=== PATIENT | female | born 1975 | race Caucasian/White ===

== ENCOUNTER 2020-11-20 16:26 | Emergency (ER) | payer OTHER, MEDICAID, SELFPAY ==
[2020-11-20 16:26] VITALS: BP 183/103; PULSE 95; RESP 18; TEMP 36.8; O2SAT 97; BMI 25.1
--- NOTE | 2020-11-20 16:37 | ED.DCSUM_ITS ---
History of Present Illness Chief Complaint: Laceration Informant: Patient Onset: Today Current Severity: Mild Maximum Severity: Mild Narrative: Patient presents with laceration to the left lower extremity. Patient was wo rking at [facility] when a customer ran into her with a cart. Patient lost her balance and hit an end. She noted a small tear in her pant leg and noticed a laceration over her left hoover. She reports her tetanus is up-to-date. She denies any other injury. Past Medical History - Allergies and Home Meds Allergies/Adverse Reactions: Allergies No Known Allergies Allergy (Verified 11/20/20 16:29) Past Medical History: None Review of Systems General: Denies: Chills, Fever Eyes: Denies: Visual changes - bilaterally ENT: Denies: Bilateral ear pain Cardiovascular: Denies: Chest pain Respiratory: Denies: Dyspnea, Cough Gastrointestinal: Denies: Abdominal pain Musculoskeletal: Reports: Extremity Pain Skin: Reports: Wounds Neurological: Denies: Headache Hematologic: Denies: Easy bruising, Easy bleeding Allergy: Denies: Uticaria Physical Exam Vital Signs/Narrative: Vital Signs Temp Pulse Resp BP Pulse Ox 11/20/20 16:26 98.2 F 95 18 183/103 H 97 Inital Vital Signs reviewed: Yes General: Well nourished, Well developed Head: Normocephalic Cardiovascular: Regular rate, Regular rhythm Respiratory: No distress, CTA bilaterally Abdomen: Soft, Nontender Skin: - - 3 cm linear laceration over the left anterior hoover. No underlying bony tenderness. Strong distal pulses. Full range of motion. Neurological: Alert, Oriented x3, Normal Strength, Normal Sensation Psychological: Normal affect Diagnostic/Tx/Re-eval - Medical Decision Making Left hoover wound was anesthetized with 3 cc 1% lidocaine. Wound was cleansed and irrigated. Skin was closed with 3 simple interval sutures of 4-0 nylon. Wound care is discussed. She will follow-up with corporate care. Procedures - Lacerations No standard instances Length: 1.18 in Depth: Sub Q Laceration repair: Local Number of Sutures/[place]: 3 Suture Information: Ethilon, Simple, 4-0 ED Disposition - Plan for ED Patient: Disposition: Home or Assisted Living Diagnosis: Leg laceration Instructions: ED Laceration: All Closures Referrals: [facility] [GROUP OF PHYSICIANS] - 5-7 Days
[2020-11-20 18:10] VITALS: RESP 16
[2020-11-20] MEDS: Lidocaine 1% (20 ml mdv) 20 ML Vial INFILT (18:12)
== END 2020-11-20 18:12 | disposition home or self-care (01) ==
PROVIDERS: Emergency Provider Emergency Medicine
DX: S81.812A Laceration without foreign body, left lower leg, initial encounter (principal); W22.8XXA Striking against or struck by other objects, initial encounter
CPT/HCPCS: 12002; 99284

== ENCOUNTER → 2021-06-03 | Outpatient (CLI) | payer OTHER, MEDICAID, SELFPAY | END | disposition home or self-care (01) | LOC: LABSPEC 16:16 | PROVIDERS: Referring Provider Physician Assistant Surgical; Visit Provider Physician Assistant Surgical | DX: Z20.822 Contact with and (suspected) exposure to COVID-19 (principal) | CPT/HCPCS: 87635; U0005; U0003 ==

== ENCOUNTER 2021-06-23 15:28 | Emergency (ER) | payer MEDICAID, SELFPAY ==
[2021-06-23 15:30] VITALS: BP 159/110; PULSE 95; RESP 20; TEMP 37.4; O2SAT 96; BMI 29.1
[2021-06-23 15:34] VITALS: TEMP 37.4; O2SAT 96
--- NOTE | 2021-06-23 16:57 | EX.ED.GENINJ ---
HPI History of Present Illness Chief Complaint: Head Injury Narrative Narrative: Patient states that she tripped and fell today with mechanical fall after drinking with her friends. She did hit her head but denies LOC. She denies dizziness, lightheadedness, blurriness, inability to ambulate or gait instability. Patient does have controlled bleeding to the left posterior scalp. Patient states otherwise healthy prior to the fall. [facility] Medical History Abnormal bruising Difficulty balancing when standing Knee pain Limb weakness SOB (shortness of breath) Home Medications NK 06/03/21 [History Last Taken Unknown] Allergy/AdvReac Type Severity Reaction Status Date / Time No Known Allergies Allergy Verified 06/03/21 14:22 Social History Smoking Status: Former smoker ROS ROS ED Constitutional Constitutional ED: Denies chills or fever(s) Eyes Eyes: Denies blurry vision or change in vision ENT ENT ED: Denies rhinorrhea or sore throat Cardiovascular Cardiovascular: Denies chest pain or palpitations Respiratory/Chest Respiratory/Chest: Denies cough or dyspnea Gastrointestinal Gastrointestinal: Denies abdominal pain, nausea or vomiting Genitourinary Genitourinary ED: Denies dysuria or hematuria Musculoskeletal Musculoskeletal: Denies arthralgias, myalgias or neck pain Integumentary Reports Abrasions Neurologic Neurologic: Denies headache(s) or weakness EXAM Physical Exam Const Vital Signs: 06/23/21 15:30 06/23/21 15:34 Temperature 99.4 F H 99.4 F H Temperature Source Temporal Pulse Rate 95 Respiratory Rate 20 H Respiratory Effort Normal Respiratory Depth Normal Respiratory Pattern Normal Blood Pressure 159/110 H Blood Pressure Mean 126 Pulse Ox 96 96 Oxygen Delivery Method Room Air Room Air Positive well nourished General Appearance ED: NAD HEENT HEENT Narrative: Scalp contusion with overlying abrasion on the left posterior occiput. There is a slight 0.25 cm superficial laceration which is not actively bleeding. No skull deformity. Eyes PERRL and EOMs intact bilaterally Neck full ROM General: Negative for tenderness Resp normal respiratory effort and clear to auscultation bilaterally Cardio regular rhythm Rate: regular rate Extremity normal to inspection Neuro oriented x3, CN's II-XII intact bilaterally, moves all extremities, no focal motor deficits and no sensory deficits noted Sensorium / Orientation: alert and oriented to person Psych mental status grossly normal Skin Skin Narrative: As described above MDM MDM MDM Narrative Medical decision making narrative: Patient has minimal pain. She alert and oriented x3. She has no focal neurologic deficits or lateralizing signs or symptoms. Her wound is superficial and does not require ronald. Her tetanus immunization is less than 5 years. From a head injury standpoint I believe she is safe to be discharged home. Patient does request the COVID-19 vaccine which would be the Pfizer which was discussed with her at length. Severe first shot. She is counseled that she can have the second shot outpatient and has a schedule this. She acknowledged understanding. She realizes she may get some symptoms from the Covid vaccine which also was discussed at length. Patient given return precautions. Impression: 1. Closed head injury 2. Scalp laceration 3. Scalp abrasion 4. Covid vaccination Discharge Plan Triage Chief Complaint: Head Injury ED Provider: Peng Bhat Dx/Rx/DC Orders Instructions: ED Abrasion, ED Head Injury (Adult) Prescriptions: No Action NK RF: 0 Primary Care Provider: Care Physician,No Primary Referrals: Kade Hobbs MD [STAFF PHYSICIAN] - As Needed Care Physician,No Primary [Primary Care Provider] - Disposition Disposition: Home, Self Care
--- NOTE | 2021-06-23 17:57 | ED.RN ---
PT walked out prior to receiving covid vaccine and stated that she would be back in to get it. this RN waited for 45 minutes and no return
== END 2021-06-23 18:00 | disposition home or self-care (01) ==
PROVIDERS: Emergency Provider Student in an Organized Health Care Education/Training Program
DX: S01.01XA Laceration without foreign body of scalp, initial encounter (principal); W01.0XXA Fall on same level from slipping, tripping and stumbling without subsequent striking against object, initial encounter; Y93.9 Activity, unspecified; Y92.9 Unspecified place or not applicable; Y99.8 Other external cause status; Z87.891 Personal history of nicotine dependence; Z28.21 Immunization not carried out because of patient refusal
CPT/HCPCS: 91300; 99284

== ENCOUNTER 2025-06-05 11:21 | Inpatient (IN) | payer MEDICAID, SELFPAY ==
[2025-06-05] VITALS (37 sets, daily range): BP systolic 127–165; BP diastolic 85–110; PULSE 89–123; RESP 12–29; TEMP 36.1–37.1; O2SAT 96–100; BMI 21.0; BMI 20.9
--- NOTE | 2025-06-05 12:38 | EDS_ITS ---
HPI History of Present Illness Chief Complaint: Nausea/Vomiting Narrative Narrative: Chief complaint and HPI: 50-year-old female with no significant past medical history presents for evaluation of nausea and vomiting. Onset of symptoms 4 days. Associated symptoms are congestion, sore throat, body aches, cough, shortness of breath/chest tightness. Denies abdominal pain but endorses decreased p.o. intake. Denies fever, chills, chest pain, dysuria. Review of systems: See HPI Medications: As listed on the chart Allergies: As listed on the chart PFSH: Per chart Vital signs: As listed on the chart. Reviewed. Physical exam: Gen: A&O x3 Head: Normocephalic, atraumatic Eyes: No sclera icterus, conjunctiva clear, PERRL, EOMI ENT: TMs clear BL, dry mucous membranes, posterior oropharynx erythematous, uvula midline, tonsils not enlarged, no tonsillar exudates Neck: Trachea midline, No JVD, Full ROM, No meningismus CV: tachycardic, regular rhythm, no murmurs, no peripheral edema Resp: Lungs CTA BL, no w/r/c, + cough GI: Abd soft, non-distended, non-tender, no r/r/g Musc: Full ROM, no deformity Skin: Warm, dry, no rash Neuro: Alert, oriented, grossly intact, sensation intact Psych: Cooperative, appropriate mood and affect [facility] Medical History Encounter for screening for COVID-19 Limb weakness Difficulty balancing when standing Abnormal bruising Knee pain SOB (shortness of breath) Home Medications Medication Instructions Recorded Last Taken Type benzonatate 200 mg capsule 200 mg PO TID PRN cough #30 caps 09/29/21 Unknown Rx Allergy/AdvReac Type Severity Reaction Status Date / Time No Known Allergies Allergy Verified 06/05/25 11:25 Social History Smoking Status: Former smoker EXAM Physical Exam Const Vital Signs: 06/05/25 11:23 06/05/25 11:39 06/05/25 11:45 Temperature 97 F L Temperature Source Temporal Pulse Rate 123 H 115 H 118 H Respiratory Rate 18 19 H 23 H Blood Pressure 150/107 H Blood Pressure Mean 121 Pulse Ox 99 99 Oxygen Delivery Method Room Air 06/05/25 12:00 06/05/25 12:15 06/05/25 12:30 Temperature Temperature Source Pulse Rate 114 H 115 H 116 H Respiratory Rate 19 H 19 H 29 H Blood Pressure Blood Pressure Mean Pulse Ox 98 98 97 Oxygen Delivery Method 06/05/25 12:55 06/05/25 13:00 06/05/25 13:15 Temperature Temperature Source Pulse Rate 116 H 109 H 106 H Respiratory Rate 26 H 21 H 19 H Blood Pressure 137/95 H 144/101 H 143/109 H Blood Pressure Mean 108 115 119 Pulse Ox 96 99 Oxygen Delivery Method 06/05/25 13:30 06/05/25 13:33 06/05/25 13:45 Temperature Temperature Source Pulse Rate 102 H 95 Respiratory Rate 22 H 19 H Blood Pressure 165/103 H 148/105 H Blood Pressure Mean 119 120 Pulse Ox 99 98 Oxygen Delivery Method 06/05/25 14:00 06/05/25 14:15 06/05/25 14:30 Temperature Temperature Source Pulse Rate 94 96 Respiratory Rate 18 18 22 H Blood Pressure 152/105 H 147/110 H Blood Pressure Mean 121 120 Pulse Ox 99 99 Oxygen Delivery Method 06/05/25 14:45 06/05/25 15:00 06/05/25 15:16 Temperature Temperature Source Pulse Rate Respiratory Rate Blood Pressure Blood Pressure Mean Pulse Ox 99 98 99 Oxygen Delivery Method 06/05/25 15:30 Temperature Temperature Source Pulse Rate 99 Respiratory Rate 13 Blood Pressure Blood Pressure Mean Pulse Ox 99 Oxygen Delivery Method MDM MDM MDM Narrative Medical decision making narrative: 50-year-old female with no significant past medical history presents for evalua tion of nausea and vomiting. Onset of symptoms 4 days. Associated symptoms are congestion, sore throat, body aches, cough, shortness of breath/chest tightness. Denies abdominal pain but endorses decreased p.o. intake. Denies fever, chills, chest pain, dysuria. On presentation, patient is tachycardic with dry mucous membranes. Differential diagnosis includes but is not limited to viral illness, influenza, COVID, electrolyte abnormality, dehydration, UTI, pneumonia. Patient's abdominal exam is benign and patient does not endorse any abdominal pain therefore I do not think CT abdomen and pelvis is needed. NS bolus, Zofran, Toradol ordered for symptoms. Laboratory workup ordered including chest x-ray. CBC with leukocytosis of 15.5. Patient has hemoconcentration of 15.6. This can be seen with mild dehydration. Patient receiving fluids. Platelet count unremarkable. CMP shows hyponatremia at 128 with dehydration/NANCY. BUN of 33. Creatinine of 1.32. Patient has hyperbilirubinemia 3.94 with transaminitis with an AST of 124 and an ALT of 87. Her lipase is 1645. Concern is for pancreatitis/choledocholithiasis. NS bolus ordered. Direct bilirubin ordered and 2.47. CT abdomen pelvis ordered. UA positive for ketones which is consistent with her dehydration. Positive for blood. Negative for UTI. However given her urine, did send for culture. CT abdomen pelvis shows no acute abnormality. Hepatosplenomegaly. Gallbladder ultrasound ordered. On reevaluation, patient's heart rate has improved. States her nausea has reoccurred. Another Zofran ordered. Patient signed out to oncoming physician, Dr. Rucker. She will wait ultrasound results and likely GI consult with admission. EKG: Interpreted by me/EM physician: EKG shows sinus tachycardia without any acute ischemic changes. Heart rate 114 Diagnostic: Interpreted by me/EM physician: Chest x-ray without pneumonia, effusion, cardiomegaly, pneumothorax. Radiology in agreement. Lab Data Labs: Laboratory Results - last 24 hr 06/05/25 06/05/25 11:45 12:59 WBC 15.5 H RBC 4.67 Hgb 15.6 H Hct 43.9 MCV 94.0 MCH 33.4 H MCHC 35.5 RDW Std Deviation 42.3 RDW Coeff of Parviz 12.2 Plt Count 194 MPV 10.4 Immature Gran % (Auto) 0.700 Neut % (Auto) 91.3 H Lymph % (Auto) 2.3 L Lares % (Auto) 5.4 Eos % (Auto) 0.0 Baso % (Auto) 0.3 Absolute Neuts (auto) 14.1 H Absolute Lymphs (auto) 0.36 L Nucleated RBC % 0 Sodium 128 L Potassium 3.7 Chloride 82 L Carbon Dioxide 11.8 L Anion Gap 34 H BUN 33 H Creatinine 1.32 H Estim Creat Clear Calc 41.24 L Est GFR (MDRD) Non-Af 49 L BUN/Creatinine Ratio 24.6 H Glucose 261 H Calcium 9.9 Total Bilirubin 3.94 H Direct Bilirubin 2.47 H AST 124 H ALT 87 H Alkaline Phosphatase 234 H Total Protein 8.8 H Albumin 5.0 Globulin 3.8 Albumin/Globulin Ratio 1.3 Lipase 1645 H Urine Color Yellow Urine Clarity Sl. Cloudy Urine pH 6.0 Ur Specific [place] 1.015 Urine Protein 100 H Urine Glucose (UA) Normal Urine Ketones 150 A* Urine Occult Blood 150 H Urine Nitrite Negative Urine Bilirubin 3 H Urine Urobilinogen 4 H Ur Leukocyte Esterase 25 H Urine RBC 5-10 SEEN Urine WBC 0-5 SEEN Ur Squamous Epith Cells 0-5 SEEN Urine Bacteria 0 SEEN Hyaline Casts 50-100 SEEN Fine Granular Casts 10-25 SEEN Urine Mucus 0 SEEN Radiography Diagnostic Testing: Clinical Impression(s) from Imaging Studies Chest X-Ray 06/05/25 13:25 IMPRESSION: Lungs appear clear throughout. No pleural effusion or pneumothorax is noted. The cardiomediastinal silhouette is within the normal range. Mild thoracic spine degenerative changes are noted. No acute osseous change is seen. No evidence of acute cardiopulmonary disease. Reading Location: [address] Abdomen/Pelvis CT 06/05/25 15:20 IMPRESSION: No acute abdominopelvic abnormalities. Hepatosplenomegaly. Reading Location: [facility] Discharge Plan Triage Chief Complaint: Nausea/Vomiting ED Provider: Balta Lr Dx/Rx/DC Orders Prescriptions: No Action benzonatate 200 mg capsule 200 mg PO TID PRN (Reason: cough) Qty: 30 0RF Primary Care Provider: Care Physician,No Primary Referrals: Care Physician,No Primary [Primary Care Provider, Medical] Print Language: Nepalese
[2025-06-05 12:44] LABS: Hematocrit 43.9 % (37-47); Hemoglobin 15.6 g/dL (12.0-15.0); Immature Granulocytes Count 0.110 X10^3/uL (0.0-0.0); Mean Corp Hgb Conc 35.5 g/dL (32-36); Mean Corpuscular Volume 94.0 fL (81-99); Mean Platelet Vol. 10.4 fl (6.2-12.0); NRBC Flagged by Analyzer 0 % (0-5); POSITIVE DIFFERENTIAL YES; Platelet Count 194 K/mm3 (150-450); RBC Distribution Width CV 12.2 % (11.6-14.6); RBC Distribution Width SD 42.3 fl (35.1-43.9); Red Blood Count 4.67 M/mm3 (4.2-5.4); White Blood Count 15.5 K/mm3 (4.4-11.0)
[2025-06-05] MEDS: 0.9% Normal Saline (1000mL) 1,000 ML 1000 ML IV ×2 (12:56→15:33)
--- NOTE | 2025-06-05 13:00 | EKG12_ITS ---
Test Reason : CHEST TIGHTNESS Blood Pressure : */* mmHG Vent. Rate : 114 BPM Atrial Rate : 114 BPM P-R Int : 126 ms QRS Dur : 68 ms QT Int : 322 ms P-R-T Axes : 65 -2 58 degrees QTcB Int : 443 ms Sinus tachycardia Septal infarct , age undetermined Abnormal ECG Confirmed by ABDOULAYE MCKEON ([id number]), senior technical editor MAX SHELBY ([id number]) on 06/08/2025 9:08:26 AM Referred By: CONNER/TONY Confirmed By: ABDOULAYE MCKEON
[2025-06-05 13:04] LABS: Mucous, Urine 0 SEEN /hpf (<or=2+)
[2025-06-05 13:06] LABS: Color, Urine Yellow (Yellow); Glucose, Dipstick Normal (Normal); Leukocyte Esterase-Dipstick 25 /ul (Negative); Nitrite-Dipstick Negative (Negative); Occult Blood-Urine 150 /ul (Negative); Protein-Dipstick 100 mg/dl (Negative); Specific Gravity, Urine 1.015 (1.002-1.030)
[2025-06-05 13:13] LABS: Urine Bilirubin Dipstick 3 mg/dL (Negative)
[2025-06-05 13:15] LABS: Ketone-Dipstick 150 mg/dl (Negative)
[2025-06-05 13:18] LABS: Fine Granular Cast- Urine 10-25 SEEN /lpf (0-5)
[2025-06-05 13:19] LABS: Red Blood Cells-Urine 5-10 SEEN /hpf (0-5); Squamous Epithelial Cells - UA 0-5 SEEN /hpf (5-10)
--- NOTE | 2025-06-05 13:25 | RAD_ITS ---
PROCEDURE: CHEST PA AND LATERAL 06/05/2025 REASON FOR EXAM: COUGH TECHNIQUE: Procedure Code: RADCXR Modality: DX Procedure: CHEST PA AND LATERAL COMPARISON: None. RAD/Chest PA and Lateral IMPRESSION: Lungs appear clear throughout. No pleural effusion or pneumothorax is noted. The cardiomediastinal silhouette is within the normal range. Mild thoracic spine degenerative changes are noted. No acute osseous change is seen. No evidence of acute cardiopulmonary disease. Reading Location: [id number]
[2025-06-05 13:53] LABS: AST(SGOT) 124 U/L (<=31); Alanine Aminotransfer ALT/SGPT 87 U/L (<=34); Albumin, Serum 5.0 g/dL (3.5-5.0); Alkaline Phosphatase 234 U/L (35-104); Anion Gap 34 (5-15); BUN 33 mg/dL (4-19); BUN/Creat Ratio 24.6 RATIO (10-20); Calcium,Total 9.9 mg/dL (7.6-11.0); Carbon Dioxide 11.8 mmol/L (21.0-32.0); Chloride 82 mmol/L (98-108); Estimated Creatinine Clearance 41.24 ml/min (50-250); Globulin 3.8 g/dL (2.2-4.2); Glucose 261 mg/dL (70-99); Potassium 3.7 mmol/L (3.3-5.1)
[2025-06-05 14:05] LABS: Lipase 1645 U/L (13-75)
[2025-06-05 15:17] LABS: Bilirubin, Direct 2.47 mg/dL (0.00-0.30)
--- NOTE | 2025-06-05 15:20 | CT_ITS ---
PROCEDURE: ABDOMEN/PELVIS WITH CONTRAST 06/05/2025 REASON FOR EXAM: ABDOMINAL PAIN TECHNIQUE: Procedure Code: [id number] Modality: CT Procedure: ABDOMEN/PELVIS WITH CONTRAST Coronal and Sagittal reconstruction series were provided. CONTRAST: Isovue 370 VOLUME: 98 mL One or more dose reduction techniques were used (e.g., Automated exposure control, adjustment of the mA and/or kV according to patient size, use of iterative reconstruction technique. RADIATION DOSE SUMMARY: CTDlvol: 7.61 mGy DLP: 423.39 mGycm COMPARISON: None. FINDINGS: Lung bases: Clear. Liver: Liver steatosis. Hepatomegaly with the liver measures 20 cm in length. Gallbladder: Unremarkable. No biliary dilation. Spleen: Unremarkable. Pancreas: Unremarkable. Adrenals: Unremarkable. Kidneys: No hydronephrosis or nephrolithiasis. Bladder: Unremarkable. Reproductive Organs: Unremarkable. Bowel: No bowel wall thickening. No bowel obstruction. Appendix: Normal. Lymph nodes: No lymphadenopathy. Vasculature: Vascular atherosclerotic calcifications. Peritoneum / Retroperitoneum: No free air or free fluid. Bones: No acute bony abnormalities. CT/Abdomen/Pelvis WITH Contrast IMPRESSION: No acute abdominopelvic abnormalities. Hepatosplenomegaly. Reading Location: [facility]
--- NOTE | 2025-06-05 15:55 | US_ITS ---
PROCEDURE: GALLBLADDER 06/05/2025 REASON FOR EXAM: ELEVATED LFTS AND BILIRUBIN TECHNIQUE: Procedure Code: USGB Modality: US Procedure: GALLBLADDER COMPARISON: None available. FINDINGS: Liver: The liver is enlarged measuring up to 19.8 cm. Diffusely echogenic suggesting fatty infiltration. No focal hepatic lesion. Gallbladder: No cholelithiasis. No gallbladder wall thickening or pericholecystic fluid. Negative sonographic Crain's sign. Common bile duct: Normal measuring 5.3 mm . Pancreas: Unremarkable. Other: The right kidney is unremarkable measuring up to 11.4 cm in length. No right upper quadrant ascites. US/Gallbladder IMPRESSION: No sonographic evidence for acute cholecystitis. No cholelithiasis. Hepatomegaly and hepatic steatosis. Reading Location: [id number]
--- OUTSIDE RECORDS SUMMARY | 2025-06-05 18:44 | XMS RPT_ITS | CCD ---
Author Organization [facility] Care Team Providers Care Senior Cytotechnologist Name Role Phone SHANKAR GARY Primary Care Unavailable NATE MIN Attending Unavailabl e Unavailable Primary Care Provider UnavailShankar Rodriguez Primary Care Provider [phone] Serenity Boone MD Primary Care Provider Serenity Boone MD Primary Care Provider Serenity Boone MD Primary Care Provider Shoshana Barrios DO Primary Care Provider Tannmikhail QUALITY ASSURANCE SUPERVISOR FINAL.Mary Ellen BRIGHT Unavailable [place]ano QUALITY ASSURANCE SUPERVISOR FINALFuad CORONADO Unavailable Medications Current Medications Medication Drug Class(es) Dates Sig (Normalized) Sig (Original) [id number] 200 actuat albuterol 0.09 mg/actuat metered dose inhaler (9 sources) beta2-Adrenergic Agonist Start: 05-13-2022 End: 12-25-2022 take 2 puff(s) by inhalation every six hours as needed for wheezing albuterol HFA (PROVENTIL HFA, VENTOLIN HFA) 90 mcg/actuation inhaler Indications: SOB (shortness of breath) Inhale 2 Puffs as instructed every 6 hours as needed for wheezing/shortness of breath. 1 Each 3 12/25/2022 Active Comment on above: Inhale 2 Puffs as in structed every 6 hours as needed for wheezing/shortness of breath. busPIRone hydrochloride 10 mg oral tablet (4 sources) Start: 10-30-2019 take 1 tablet by mouth three times daily as needed for anxiety busPIRone (BUSPAR) 10 MG tablet Take 1 tablet by mouth 3 times daily as needed (anxiety) 90 tablet 1 10/30/2019 Active dextromethorphan hydrobromide 15 mg / guaiFENesin 400 mg / pseudoephedrine hydrochloride 60 mg oral tablet (1 source) alpha-Adrenergic Agonist, Uncompetitive Z-hakbze-W-asparta te Receptor Antagonist, Sigma-1 Agonist Start: 01-19-2019 take 1 tablet by mouth twice daily as needed pseudoephedrine-DM- guaiFENesin 60-15-400 mg Tab Indications: Rhinosinusitis Take 1 (one) tablet by mouth 2 (two) times a day as needed . 14 tablet 0 01/19/2019 Active Start: 01-19-2019 take 1 tablet by rhona th twice daily as needed gqtvxlzujifpwoy-DH-xdsoBEUargk 60-15-400 mg Tab Indications: Rhinosinusitis Take 1 (one) tablet by mouth 2 (two) times a day as needed . 14 tablet 0 01/19/2019 Active dextromethorphan hydrobromide 3 mg/ml / promethazine hydrochloride 1.25 mg/ml oral solution (1 source) Phenothiazine, Uncompetitive O-baupjd-F-aspartate Receptor Antagonist, Sigma-1 Agonist Start: 01-19-2019 End: 01-26-2019 take 5 mL by mouth at bedtime as needed for cough promethazine-dextromethorphan (PROMETHAZINE-DM) 6.25-15 mg/5 mL syrup Indications: Rhinosinusitis Take 5 mL by mouth at bedtime as needed for cough . 118 mL 0 01/19/2019 01/26/2019 Active doxycycline hyclate 100 mg oral tablet (1 source) Tetracycline-class Drug Start: 01-19-2019 End: 01-29-2019 take 1 tablet by mouth twice daily doxycycline hyclate (VIBRA-TABS) 100 MG tablet Indications: Rhinosinusitis Take 1 (one) tablet (100 mg total) by mouth 2 (two) times a day for 10 days . 20 tablet 0 01/19/2019 01/29/2019 Active escitalopram 10 mg oral tablet (4 sources) Serotonin Reuptake Inhibitor Start: 10-30-2019 take 1 tablet by mouth once daily escitalopram (LEXAPRO) 10 MG tablet Take 1 tablet by mouth daily 30 tablet 1 10/30/2019 Active fluticasone propionate 0.05 mg/actuat metered dose nasal spray (1 source) Corticosteroid Start: 01-19-2019 End: 01-19-2020 take 2 spray(s) nasal route once daily fluticasone propionate (FLONASE) 50 mcg/actuation nasal spray Instill 2 (two) sprays into each nostril daily . 16 g 0 01/19/2019 01/19/2020 Active hydrOXYzine hydrochloride 25 mg oral tablet (7 sources) Antihistamine Start: 12-25-2022 End: 03-23-2023 take 1 tablet by mouth three times daily as needed for anxiety hydrOXYzine HCl (ATARAX) 25 mg tablet Indications: Anxiety with depression Take 1 tablet by mouth three times daily as needed for anxiety. 30 tablet 5 01/22/2023 03/23/2023 Active End: 01-14-2021 hydroxyzine pamoate (VISTARI L ORAL) Take 25 mg by mouth. 01/14/2021 Discontinued Comment on above: Take 1 tablet by rhona th three times daily as needed for anxiety. meloxicam 15 mg oral tablet (10 sources) Nonsteroidal Anti-inflammatory Drug Start: 09-14-19 take 1 tablet by mouth once daily at mealtime meloxicam (MOBIC) 15 mg tablet Indications: Left wrist tendonitis , Tendonitis of knee, right Take 1 tablet by mouth once daily. With food. 30 tablet 1 09/14/2021 Active Comment on above: Take 1 tablet by rhona th once daily. With food. olopatadine 2 mg/ml ophthalmic solution (4 sources) Histamine-1 Receptor Inhibitor Start: 12-26-19 End: 01-25-20 23 take 1 drop(s) into the eye(s) once daily Olopatadine 0.2 % drop Indications: Seasonal allergies Use 1 Drop in both eyes once daily. 5 mL 3 12/25/2022 01/24/2023 Active Comment on above: Use 1 Drop in both e yes once daily. traZODone hydrochloride 100 mg oral tablet (4 sources) Serotonin Reuptake Inhibitor Start: 10-30-19 take 1 tablet by mouth once daily as needed for sleep traZODone (DESYREL) 100 MG tablet Take 1 tablet by mouth nightly as needed for Sleep 30 tablet 1 10/30/2019 Active Completed/Discontinued Medications Medication Drug Class(es) Dates Sig (Normalized) Sig (Original) acetaminophen 325 mg / HYDROcodone bitartrate 5 mg oral tablet (1 source) Opioid Agonist Start: 08-04-2016 End: 01-14-2021 HYDROcodone-acetam inophen (NORCO) 5-325 mg per tablet 08/04/2016 01/14/2021 Discontinued (Course of therapy completed) citalopram 10 mg oral tablet (1 source) Serotonin Reuptake Inhibitor Start: 07-17-2016 End: 01-14-2021 take 1 tablet by mouth once daily citalopram hydrobromide (CELEXA) 10 mg tablet Indications: Adjustment disorder with anxiety Take 1 tablet by mouth once daily. 30 tablet 5 07/17/2016 01/14/2021 Discontinued (Course of therapy completed) ibuprofen 800 mg oral tablet (1 source) Nonsteroidal Anti-inflammatory Drug Start: 08-04-2016 End: 01-14-2021 ibuprofen (MOTRIN) 800 mg tablet 08/04/2016 01/14/2021 Discontinued (Course of therapy completed) OLANZapine 5 mg oral tablet (5 sources) Atypical Antipsychotic Start: 12-25-2022 End: 01-24-2023 take 1 tablet by mouth once daily at bedtime OLANZapine (ZYPREXA) 5 mg tablet Indications: Anxiety with depression Take 1 tablet by mouth daily at bedtime. 30 tablet 3 12/25/2022 Active Comment on above: Take 1 tablet by rhona th daily at bedtime. zolpidem tartrate 10 mg oral tablet (1 source) gamma-Aminobutyric Acid-ergic Agonist Start: 02-26-2017 End: 01-14-2021 take 0.5-1 tablets by mouth at bedtime as needed zolpidem (AMBIEN) 10 mg tab Indications: Adjustment insomnia Take 0.5-1 tablets by mouth at bedtime as needed. 30 tablet 02/26/2017 01/14/2021 Discontinued (Course of therapy completed) Problems Active Problems Problem Classification Problem Date Documented Da te Episodic/Chronic Adjustment disorders (11 sources) Adjustment disorder with anxious mood; Translations: [Adjustment disorder with anxiety] Onset: 07-17-2016 07-17-2016 Chronic Alcohol-related disorders (8 sources) Alcohol abuse; Translations: [Alcohol withdrawal syndrome] Onset: 10-28-2019 Resolved: 11-02-2019 11-01-2019 Chronic Anxiety disorders (2 sources) Mixed anxiety and depressive disorder; Translations: [Other specified anxiety disorders] Chronic Mood disorders (4 sources) Severe recurrent major depression without psychotic features; Translations: [Severe episode of recurrent major depressive disorder, without psychotic features] 10-30-2019 Chronic Other circulatory disease (1 source) Elevated blood-pressure reading without diagnosis of hypertension; Translations: [Elevated blood-pressure reading, without diagnosis of hypertension] Episodic Other lower respiratory disease (1 source) Dyspnea; Translations: [Shortness of breath] Episodic Other lower respiratory disease (1 source) Cough; Translations: [Acute cough] 05-13-2022 Episodic Other screening for suspected conditions (not mental disorders or infectious disease) (8 sources) Patient encounter status; Translations: [Encounter for screening mammogram for malignant neoplasm of breast] Episodic Other upper respiratory disease (1 source) Seasonal allergy; Translations: [Other seasonal allergic rhinitis] Chronic Past or Other Problems Problem Classification Problem Date Documented Da te Episodic/Chronic Miscellaneous mental health disorders (11 sources) Acute insomnia; Translations: [Adjustment insomnia] Onset: 07-17-2016 07-17-2016 Episodic Other upper respiratory disease (1 source) Inflammatory disorder of upper respiratory tract; Translations: [Rhinosinusitis] Episodic Unclassified (1 source) Patient encounter status 10-21-2024 Results Test Name Value Interpretation Reference Range Facility XR Chest PA and Lateralon IMPRESSION: No acute radiographic abnormality. Devops Engineer: GLENNA Transcribe Date/Time: May 13 2022 9:08A Dictated by : DAWIT CORTES MD This examination was interpreted and the report reviewed and electronically signed by: DAWIT CORTES MD on May 13 2022 9:08AM [facility] DIVISION OF RADIOLOGY * * *Final Report* * * DATE OF EXAM: May 13 2022 8:52AM WOX [id number] - XR CHEST 2V FRONTAL/LAT / PROCEDURE REASON: Acute cough * * * * Physician Interpretation * * * * EXAMINATION: CHEST RADIOGRAPH (2 VIEW FRONTAL & LATERAL) CLINICAL HISTORY: Acute cough MQ: XC2_6 EXAM DATE/TIME: 05/13/2022 8:52 AM COMPARISON: No relevant prior studies available. RESULT: Lines, tubes, and devices: None. Lungs and pleura: No consolidation. No lung mass. No pleural effusion. No pneumothorax. Cardiomediastinal silhouette: Normal cardiomediastinal silhouette. Bones and soft tissues: Unremarkable. DIVISION OF RADIOLOGY Provider, Jena Gallagher - 05/13/2022 * * *Final Report* * * DATE OF EXAM: May 13 2022 8:52AM WOX [id number] - XR CHEST 2V FRONTAL/LAT / PROCEDURE REASON: Acute cough * * * * Physician Interpretation * * * * EXAMINATION: CHEST RADIOGRAPH (2 VIEW FRONTAL & LATERAL) CLINICAL HISTORY: Acute cough MQ: XC2_6 EXAM DATE/TIME: 05/13/2022 8:52 AM COMPARISON: No relevant prior studies available. RESULT: Lines, tubes, and devices: None. Lungs and pleura: No consolidation. No lung mass. No pleural effusion. No pneumothorax. Cardiomediastinal silhouette: Normal cardiomediastinal silhouette. Bones and soft tissues: Unremarkable. IMPRESSION IMPRESSION: No acute radiographic abnormality. Devops Engineer: PSCB Transcribe Date/Time: May 13 2022 9:08A Dictated by : DAWIT CORTES MD This examination was interpreted and the report reviewed and electronically signed by: DAWIT CORTES MD on May 13 2022 9:08AM EST [facility] Radiology Study observation (narrative) [facility] XR Chest PA and LateralOrder ed By: [facility] Provider on 05-13-2022 [facility] Urgent Care Visit Reporton 0 09-29-2021 Urgent Care Visit Report [facility] [address] [place] [address] OFFICE VISIT Date of Service: 09/29/21 MR#: [id number] Acct: [id number] Name: MELISSA RANDALL Brea Rep #: [id number] : 1975 Provider: BERNARD ram Age/Sex: 46/F Location: [facility] Status: Signed Intake Vital Signs 09/29/21 10:14 BP 146/84 H Blood Pressure Location Lt brachial Position Sitting Respiration 18 Pulse 85 Pulse Source Monitor Temp 97.6 F L Temp Source Temporal Pulse Oximetry (%) 99 Oxygen Delivery Method room air Intake Visit Reasons: URI Chief Complaint: Covid exposure Allergies No Known Allergies Allergy (Verified 06/03/21 14:22) [facility] Medical History (Updated 09/29/21 @ 10:39 by Mono WAGNER, PA) Abnormal bruising Difficulty balancing when standing Encounter for screening for COVID-19 Knee pain Limb weakness SOB (shortness of breath) Social History Smoking Status: Former smoker HPI HPI Chief Complaint: Covid exposure Details: MELISSA RANDALL, is a 46 F who presents to the office today for 1 day h/o chills, cough, vital, myalgias, fatigue, congestion/ runny nose, and nausea. No COVID19 vaccine to date. No COVID19 exposure. Exsmoker. Ibuprofen, Dayquil no help. No other c/o at this time. ROS Const Constitutional: Positive for other (as above) Exam Const General: cooperative, healthy appearing, comfortable and no acute distress Nutritional Appearance: well nourished Orientation: alert, awake and oriented x3 HENMT Head: normal to inspection Ears: hearing grossly normal bilaterally, external ears normal, TM's normal bilaterally and EAC's normal Nose: external nose normal, nares normal, septum normal and no nasal discharge Face and sinus: normal facial exam, sinuses nontender and face symmetric Mouth: oral mucosae normal, lip normal, tongue normal and moist mucous membranes Throat: posterior oropharynx normal, tonsils normal, uvula midline and no postnasal drainage Eyes General: appearance normal, both eyes and all related structures Neck Neck: normal visual inspection, full ROM, no lymphadenopathy, no meningeal signs and supple Neck mass: No Thyroid: thyroid normal Lymphatic: no lymphadenopathy noted Chest Chest palpation inspection: normal inspection of the chest Resp Effort Inspection: normal respiratory effort, able to speak in complete sentences, symmetric chest movement and no cough Auscultation: Bilateral: Clear to Auscultation Cardio Palpation: normal PMI Rate: regular rate Rhythm: regular rhythm Heart Sounds: S1 normal, S2 normal, no gallops, no murmurs and no rubs Pulses: radial pulses present GI Inspection: normal to inspection Palpation: soft and no hepatosplenomegaly Skin General: no rashes or lesions noted Neuro General: patient alert, patient awake, patient oriented x3 and gait normal Cognition: normal cognition Speech: speech normal Gait: normal gait Motor: muscle tone normal throughout Sensory Exam: no sensory deficits noted Psych Appearance: grossly normal Mental Status: mental status grossly normal Mood: congruent mood Affect: normal affect Speech and Movement: speech and movement normal Attitude: cooperative Thought Process: normal Thought Content: normal Judgment: judgment good Results POC SARS AG POC SARS AG Negative Last Edit by Irasema Templeton on 09/29/21 10:25 Coding Level of Care Code Off vis,est,level 3 Diagnoses Encounter for screening for COVID-19 Z11.52 Assessment and Plan Assessment and Plan (1) Encounter for screening for COVID-19: Status: Acute Plan - Mono WAGNER PA: Benzonatate as prescribed today as needed for symptomatic relief. POC COVID-19 screening in office today. Copy of test results offered today. Supportive measures as instructed today. Follow-up with PCP in 5 to 7 days should symptoms not improve, ED sooner should symptoms only worsen or any other concerns develop. Patient states acknowledging understanding all the above. This note was generated with Room Choice dictation software. It may contain incorrect words, spelling, and punctuation that were not noted in checking the note before signing. Plan Details Other Medications: New: benzonatate 200 mg PO TID PRN 30 caps 0RF cough Other Orders: Orders: POC Rapid SARS Antigen Today 09/29/21 1556 Date oMno WAGNER Cosigner Signature: Date (if applicable) CC: Normal [facility] Emergency Department Summary on 06-23-2021 Emergency Department Summary [facility] Medical Records Department [address] [place] [address] Emergency Department Summary 06/23/21 MR#: [id number] Acct: [id number] Name: MELISSA RANDALL Rep #: [id number] : 1975 46 From: Peng Bhat DO PCP: Care Physician,No Primary Status:REG ER Location: ED HPI History of Present Illness Chief Complaint: Head Injury Narrative Narrative: Patient states that she tripped and fell today with mechanical fall after drinking with her friends. She did hit her head but denies LOC. She denies dizziness, lightheadedness, blurriness, inability to ambulate or gait instability. Patient does have controlled bleeding to the left posterior scalp. Patient states otherwise healthy prior to the fall. [facility] Medical History Abnormal bruising Difficulty balancing when standing Knee pain Limb weakness SOB (shortness of breath) Home Medications NK 06/03/21 [History Last Taken Unknown] Allergy/AdvReac Type Severity Reaction Status Date / Time No Known Allergies Allergy Verified 06/03/21 14:22 Social History Smoking Status: Former smoker ROS ROS ED Constitutional Constitutional ED: Denies chills or fever(s) Eyes Eyes: Denies blurry vision or change in vision ENT ENT ED: Denies rhinorrhea or sore throat Cardiovascular Cardiovascular: Denies chest pain or palpitations Respiratory/Chest Respiratory/Chest: Denies cough or dyspnea Gastrointestinal Gastrointestinal: Denies abdominal pain, nausea or vomiting Genitourinary Genitourinary ED: Denies dysuria or hematuria Musculoskeletal Musculoskeletal: Denies arthralgias, myalgias or neck pain Integumentary Reports Abrasions Neurologic Neurologic: Denies headache(s) or weakness EXAM Physical Exam Const Vital Signs: 06/23/21 15:30 06/23/21 15:34 Temperature 99.4 F H 99.4 F H Temperature Source Temporal Pulse Rate 95 Respiratory Rate 20 H Respiratory Effort Normal Respiratory Depth Normal Respiratory Pattern Normal Blood Pressure 159/110 H Blood Pressure Mean 126 Pulse Ox 96 96 Oxygen Delivery Method Room Air Room Air Positive well nourished General Appearance ED: NAD HEENT HEENT Narrative: Scalp contusion with overlying abrasion on the left posterior occiput. There is a slight 0.25 cm superficial laceration which is not actively bleeding. No skull deformity. Eyes PERRL and EOMs intact bilaterally Neck full ROM General: Negative for tenderness Resp normal respiratory effort and clear to auscultation bilaterally Cardio regular rhythm Rate: regular rate Extremity normal to inspection Neuro oriented x3, CN's II-XII intact bilaterally, moves all extremities, no focal motor deficits and no sensory deficits noted Sensorium / Orientation: alert and oriented to person Psych mental status grossly normal Skin Skin Narrative: As described above MDM MDM MDM Narrative Medical decision making narrative: Patient has minimal pain. She alert and oriented x3. She has no focal neurologic deficits or lateralizing signs or symptoms. Her wound is superficial and does not require ronald. Her tetanus immunization is less than 5 years. From a head injury standpoint I believe she is safe to be discharged home. Patient does request the COVID-19 vaccine which would be the Pfizer which was discussed with her at length. Severe first shot. She is counseled that she can have the second shot outpatient and has a schedule this. She acknowledged understanding. She realizes she may get some symptoms from the Covid vaccine which also was discussed at length. Patient given return precautions. Impression: 1. Closed head injury 2. Scalp laceration 3. Scalp abrasion 4. Covid vaccination Discharge Plan Triage Chief Complaint: Head Injury ED Provider: Peng Bhat Dx/Rx/DC Orders Instructions: ED Abrasion, ED Head Injury (Adult) Prescriptions: No Action NK RF: 0 Primary Care Provider: Care Physician,No Primary Referrals: Kade Hobbs MD [STAFF PHYSICIAN] - As Needed Care Physician,No Primary [Primary Care Provider] - Disposition Disposition: Home, Self Care What to do if you have Problems For any increased pain, shortness of breath, bleeding, nausea or vomiting, chest pain, or any unexpected problems, contact your Primary Care Provider. Call [facility] ([phone]) or report to the closest Emergency Room. Call 911 if necessary. 06/23/21 1700 Cosigner Signature (if applicable): CC: No Primary Care Physician Signed Normal [facility] COVID 19, [facility](RT COLLECT )on 06-03-2021 SARS-CoV-2 (COVID-19) RNA MATT+probe Ql (Unsp spec) Not detected Normal Not Detect [facility] Comment on above: Order Comment: Reaso n for Exam: congestion Result Comment: Norm al Reference Range: Not Detected Method:(RT-PCR) real-time reverse transcriptase PCR [employer] Instrument *The Food and Drug Administration (FDA) has issued an Emergency Use Authorization (EAU) for the SANJANA SARS-CoV-2 Assay for the rapid detection of the virus that causes COVID-19. This test has been validated, but the [facility] independent review of this validation is pending. *Negative results do not preclude infection and should not be used as the sole basis for treatment or patient management. Optimum specimen types and timing for peak viral levels during infections caused by SARS-CoV-2 have not been determined. Collection of multiple specimens from the same patient may be necessary to detect the virus. The possibility of a false negative result should be considered if the patient has clinical presentation or has had recent exposure. Performed By: #### L [id number] #### [facility] [address] [place], [address] Urgent Care Visit Reporton 0 06-03-2021 Urgent Care Visit Report [facility] [address] [place] [address] [address] [place], [place] [id number] OFFICE VISIT Date of Service: 06/03/21 MR#: [id number] Acct: [id number] Name: MELISSA RANDALL Rep #: [id number] : 1975 Provider: BERNARD Esparza Age/Sex: 46/F Location: [facility] Status: Signed Intake Vital Signs 06/03/21 14:21 Height 5 ft 4 in Weight: 165 lb BMI 28.3 BP 158/110 H Blood Pressure Location Lt brachial Position Sitting Respiration 15 Pulse 89 Pulse Source Monitor Temp 97.9 F Temp Source Temporal Pulse Oximetry (%) 98 Oxygen Delivery Method room air Intake Visit Reasons: COVID- EXPOSURE Chief Complaint: Covid exposure Allergies No Known Allergies Allergy (Verified 06/03/21 14:22) Medications NK 06/03/21 [History Confirmed 06/03/21] [facility] Medical History (Updated 06/03/21 @ 14:26 by Sharif WAGNER, BERNARD) Abnormal bruising Difficulty balancing when standing Knee pain Limb weakness SOB (shortness of breath) Social History Smoking Status: Never smoker HPI HPI Chief Complaint: Covid exposure Details: MELISSA RANDALL, is a 46 F who presents to the office today for request of Covid test after exposure 3 days ago and started fatigue and sore throat today. Patient denies fever, chills, sweats. No nausea, vomiting, diarrhea. No cough, breath or difficulty breathing. No other associated symptoms or alleviating/aggravating factors. ROS Const Constitutional: Positive for other (6 system ROS completed with pertinent findings in HPI otherwise normal.) Exam Const General: cooperative and well developed HENMT Head: normal to inspection and atraumatic Ears: hearing grossly normal bilaterally Nose: nasal discharge clear Face and sinus: normal facial exam Mouth: oral mucosae normal Throat: abnormal tonsil bilaterally hypertrophy 1+ Resp Effort Inspection: normal respiratory effort and no audible wheezes Auscultation: Bilateral: Clear to Auscultation Cardio Palpation: normal PMI Rate: regular rate Rhythm: regular rhythm Neuro General: patient alert and CN's II-XI intact bilaterally Psych Appearance: grossly normal Mental Status: mental status grossly normal Coding Level of Care Code Off vis,est,level 3 Diagnoses Fatigue R53.83 Contact with or suspected exposure to other viral communicable disease Z20.828 Assessment and Plan Assessment and Plan (1) Fatigue: Status: Acute (2) Contact with or suspected exposure to other viral communicable disease: Status: Acute Plan - Sharif WAGNER PA: Patient swabbed for Covid send out testing in the office today. Encouraged to get plenty of rest, drink lots of clear liquids, and use Tylenol or Ibuprofen (unless contraindicated) for fever and comfort. Patient also educated on other symptomatic management techniques. To be seen in 7-10 days if no improvement; sooner if worsening of symptoms. Patient advised of potential red flags and when appropriate to report to the ED. Patient verbalized understanding and agreement with all the above. Plan Details Other Orders: Orders: COVID 19, PCR [facility](RT COLLECT) Today Z11.52 06/03/21 1426 Date Sharif WAGNER Cosigner Signature: Date (if applicable) CC: Normal [facility] XR Tibia and Fibula - right AP and Lateralon 12-29-2020 IMPRESSION: No radiographic evidence of acute osseous injury. Devops Engineer: GLENNA Transcribe Date/Time: Dec 29 2020 12:02P Dictated by : DARRELL ALEJANDRA MD This examination was interpreted and the report reviewed and electronically signed by: DARRELL ALEJANDRA MD on Dec 29 2020 12:03PM EST DIVISION OF RADIOLOGY * * *Final Report* * * DATE OF EXAM: Dec 29 2020 12:01PM WOX 5266 - XR TIBIA FIBULA 2V AP/LAT RT / PROCEDURE REASON: Lower leg injury, right, initial encounter * * * * Physician Interpretation * * * * CLINICAL INDICATION: Lower leg injury TECHNIQUE: Frontal and lateral radiographs of the right tibia/fibula COMPARISON: None FINDINGS: No acute fracture or dislocation identified. No radiopaque foreign body. DIVISION [facility] RADIOLOGY [facility] * * *Final Report* * * DATE OF EXAM: Dec 29 2020 12:01PM WOX 5266 - XR TIBIA FIBULA 2V AP/LAT RT / PROCEDURE REASON: Lower leg injury, right, initial encounter * * * * Physician Interpretation * * * * CLINICAL INDICATION: Lower leg injury TECHNIQUE: Frontal and lateral radiographs of the right tibia/fibula COMPARISON: None FINDINGS: No acute fracture or dislocation identified. No radiopaque foreign body. IMPRESSION IMPRESSION: No radiographic evidence of acute osseous injury. Devops Engineer: GLENNA Transcribe Date/Time: Dec 29 2020 12:02P Dictated by : DARRELL ALEJANDRA MD This examination was interpreted and the report reviewed and electronically signed by: DARRELL ALEJANDRA MD on Dec 29 2020 12:03PM EST [facility] Radiology Study observation (narrative) [facility] XR Tibia and Fibula - right AP and LateralOrdered By: Ccf Provider on 12-29-2020 [facility] Urgent Care Visit Reporton 0 12-01-2020 Urgent Care Visit Report [facility] [address] [place] [address] OFFICE VISIT Date of Service: 12/01/20 MR#: [id number] Acct: [id number] Name: MELISSA RANDALL Rep #: [id number] : 1975 Provider: BERNARD ram Age/Sex: 45/F Location: [facility] Status: Signed Intake Vital Signs 12/01/20 BP 132/84 H 12/01/20 Blood Pressure Location Lt brachial 12/01/20 Position Sitting 12/01/20 Respiration 16 12/01/20 Pulse 90 12/01/20 Pulse Source Monitor 12/01/20 Temp 97.9 F 12/01/20 Temp Source Temporal 12/01/20 Pulse Oximetry (%) 98 12/01/20 Oxygen Delivery Method room air Intake Visit Reasons: FOLLOW UP/[employer] Chief Complaint: Left lower leg laceration recheck Allergies No Known Allergies Allergy (Verified 11/20/20 16:29) PFS Social History (Updated 12/01/20 @ 10:03 by Mono WAGNER, BERNARD) Smoking Status: Never smoker HPI HPI Chief Complaint: Left lower leg laceration recheck Details: MELISSA RANDALL, is a 45 F who presents to the office today for recheck left lower leg injury. Patient notes since her last evaluation here, she has been working within the work striction's, maintaining wound care as previously instructed, and taking Keflex as prescribed. She notes remarkable improvement and decreased erythema and swelling and no warmth the same appreciated. She notes overall feeling it has improved considerably with no complaints of fever, chills, sweats, nausea. ROS Const Constitutional: Positive for other (As above) Exam Const General: cooperative, healthy appearing, comfortable, no acute distress Nutritional Appearance: well nourished Orientation: alert, awake, oriented x3 Skin General: no rashes or lesions noted, erythema (Improved/ appropriate granulation anterior LLE laceration site) Neuro General: alert, awake, oriented x3, gait normal Cognition: normal cognition Speech: speech normal Gait: normal gait Motor: muscle tone normal throughout Sensory Exam: no sensory deficits noted Extrem General: full ROM, normal capillary refill, normal exam except as noted (See skin exam above), no joint enlargement Assessment Plan Problems 1. Laceration without foreign body, left lower leg, initial encounter S81.293F Plan Released without restrictions at this time as noted on today's [employer], provided patient continue wound care as previously instructed for an additional week as well as finish cephalexin as previously prescribed. Follow-up as needed should symptoms worsen or any other concerns develop at laceration site. Patient states acknowledging understanding all the above. This note was generated with Room Choice dictation software. It may contain incorrect words, spelling, and punctuation that were not noted in checking the note before signing. Coding Level of Care Code Off vis,est,level 2 Diagnoses Laceration without foreign body, left lower leg, initial encounter S81.812A 12/01/20 1003 Date Mono Winkler Signature: Date (if applicable) CC: Normal [facility] Urgent Care Visit Reporton 0 11-29-2020 Urgent Care Visit Report [facility] [address] [place] [address] OFFICE VISIT Date of Service: 11/29/20 MR#: [id number] Acct: [id number] Name: MELISSA RANDALL Rep #: [id number] : 1975 Provider: BERNARD ram Age/Sex: 45/F Location: [facility] Status: Signed Intake Vital Signs 11/29/20 Height 5 ft 3 in 11/29/20 Weight: 169 lb 2 oz 11/29/20 BMI 29.9 11/29/20 BP 122/80 H 11/29/20 Blood Pressure Location Lt brachial 11/29/20 Position Sitting 11/29/20 Respiration 16 11/29/20 Pulse 89 11/29/20 Pulse Source Monitor 11/29/20 Temp 97.7 F L 11/29/20 Temp Source Temporal 11/29/20 Pulse Oximetry (%) 98 11/29/20 Oxygen Delivery Method room air Intake Visit Reasons: Laceration Suture Removal Leg, [employer] Chief Complaint: Left lower leg laceration recheck Allergies No Known Allergies Allergy (Verified 11/20/20 16:29) [facility] Social History (Updated 11/29/20 @ 14:41 by Mono WAGNER, PA) Smoking Status: Never smoker HPI HPI Chief Complaint: Left lower leg laceration recheck Details: MELISSA RANDALL, is a 45 F who presents to the office today for recheck left lower leg laceration. Patient notes on date of injury while at work customer hitting her with a grocery cart suffering a laceration to the same. Patient reported [facility] ED were x4 SI sutures were placed and she is here for follow-up. She notes since her evaluation emergency room the most distal suture had fallen out, noting increased erythema swelling and tenderness circumferential to the laceration site. No complaints fever, chills, sweats, nausea. This has not inhibited her workability she so states. She notes no other associated symptoms no other alleviating or aggravating factors. ROS Const Constitutional: No other (As above) Exam Const General: cooperative, healthy appearing, comfortable, no acute distress Nutritional Appearance: average body habitus, well nourished Orientation: alert, awake, oriented x3 Resp Effort Inspection: normal respiratory effort, able to speak in complete sentences, symmetric chest movement Cardio Rate: regular rate Pulses: posterior tibial pulses present, dorsalis pedis pulses present Skin Lesions: no lesions Rashes: no rashes Trauma: laceration (See other below) Other: Left anterior lower leg laceration well approximated with remaining [address]. All SI sutures removed without incident and wound approximation well-maintained though circumferential erythema and fluctuant swelling with localized tenderness palpation appreciated. Site recleansed then bacitracin ointment, dressing, Coban applied thereafter which patient tolerated well. Neuro General: alert, awake, oriented x3, gait normal Cognition: normal cognition Speech: speech normal Gait: normal gait Motor: muscle tone normal throughout Sensory Exam: no sensory deficits noted Extrem General: full ROM, normal capillary refill, normal exam except as noted (See skin exam above), no joint enlargement Psych Appearance: grossly normal Mental Status: mental status grossly normal Mood: congruent mood Affect: normal affect Speech and Movement: speech and movement normal Attitude: cooperative Thought Process: normal Thought Content: normal Judgment: judgment good Assessment Plan Problems 1. Laceration without foreign body, left lower leg, initial encounter S81.812A Plan Return to work without restrictions as noted on today's [employer] per patient request. Cephalexin as prescribed today. Wound care as instructed today. Rest, elevate, ibuprofen/acetaminophen as needed for symptomatic relief. Follow-up in our clinic in 3 days from reevaluation, sooner should symptoms worsen or any other concerns develop. Patient states acknowledging understanding all the above. This note was generated with Room Choice dictation software. It may contain incorrect words, spelling, and punctuation that were not noted in checking the note before signing. Medications New: cephalexin 500 mg PO TID 30 caps 0RF Coding Level of Care Code Off vis,new,level 3 Diagnoses Laceration without foreign body, left lower leg, initial encounter S81.812A 11/29/20 1441 Date Mono iWnkler Signature: Date (if applicable) CC: Normal [facility] Emergency Department Summary on 11-20-2020 Emergency Department Summary [facility] Medical Records Department [address] [place] [address] Emergency Department Summary 11/20/20 MR#: [id number] Acct: [id number] Name: MELISSA RANDALL Brea Rep #: [id number] : 1975 45 From: Barbie Lynch MD PCP: ELMIRA SAUER Status:DEP ER History of Present Illness Chief Complaint: Laceration Informant: Patient Onset: Today Current Severity: Mild Maximum Severity: Mild Narrative: Patient presents with laceration to the left lower extremity. Patient was working at [employer] when a customer ran into her with a cart. Patient lost her balance and hit an end. She noted a small tear in her pant leg and noticed a laceration over her left hoover. She reports her tetanus is up-to-date. She denies any other injury. Past Medical History - Allergies and Home Meds Allergies/Adverse Reactions: Allergies No Known Allergies Allergy (Verified 11/20/20 16:29) Past Medical History: None Review of Systems General: Denies: Chills, Fever Eyes: Denies: Visual changes - bilaterally ENT: Denies: Bilateral ear pain Cardiovascular: Denies: Chest pain Respiratory: Denies: Dyspnea, Cough Gastrointestinal: Denies: Abdominal pain Musculoskeletal: Reports: Extremity Pain Skin: Reports: Wounds Neurological: Denies: Headache Hematologic: Denies: Easy bruising, Easy bleeding Allergy: Denies: Uticaria Physical Exam Vital Signs/Narrative: Vital Signs Temp Pulse Resp BP Pulse Ox 11/20/20 16:26 98.2 F 95 18 183/103 H 97 Inital Vital Signs reviewed: Yes General: Well nourished, Well developed Head: Normocephalic Cardiovascular: Regular rate, Regular rhythm Respiratory: No distress, CTA bilaterally Abdomen: Soft, Nontender Skin: - - 3 cm linear laceration over the left anterior hoover. No underlying bony tenderness. Strong distal pulses. Full range of motion. Neurological: Alert, Oriented x3, Normal Strength, Normal Sensation Psychological: Normal affect Diagnostic/Tx/Re-eval - Medical Decision Making Left hoover wound was anesthetized with 3 cc 1% lidocaine. Wound was cleansed and irrigated. Skin was closed with 3 simple interval sutures of 4-0 nylon. Wound care is discussed. She will follow- up with corporate care. Procedures - Lacerations No standard instances Length: 1.18 in Depth: Sub Q Laceration repair: Local Number of Sutures/[place]: 3 Suture Information: Ethilon, Simple, 4-0 ED Disposition - Plan for ED Patient: Disposition: Home or Assisted Living Diagnosis: Leg laceration Instructions: ED Laceration: All Closures Referrals: Corporate,Care [GROUP OF PHYSICIANS] - 5-7 Days What to do if you have Problems For any increased pain, shortness of breath, bleeding, nausea or vomiting, chest pain, or any unexpected problems, contact your Primary Care Provider. Call [facility] ([phone]) or report to the closest Emergency Room. Call 911 if necessary. 11/20/202306 Date Barbie Winkler Signature (If Indicated): Date CC: ELMIRA SAUER [facility] HCG,Urine Qualon 11-14-2019 Beta HCG ( test) Ql (U) Negative Normal Negative [facility] Comment on above: Result Comment: Preg vasu is the most common reason for HCG in urine, although choriocarcinoma, hydatidiform mole, and certain nontropho- blastic malignancies also result in detectable urinary HCG levels. Sensitivity = 20mIU/mL. Performed By: #### H CGUR #### [facility] [address] [place] [address] #### IGNUR #### [address] [address] [facility] Screen[facility] 2019 Amphetamines Ql (U) Negative Normal [facility] Comment on above: Performed By: #### H CGUR #### [facility] [address] [place] [address] #### IGNUR #### [address] [address] Barbiturates Positive Normal [facility] Comment on above: Performed By: #### H CGUR #### [facility] [address] [place] [address] #### IGNUR #### [address] [address] Benzodiazepines Ql (U) Negative Normal [facility] Comment on above: Performed By: #### H CGUR #### [facility] [address] [place] [address] #### IGNUR #### [address] [address] Cocaine Ql (U) Negative Normal [facility] Comment on above: Performed By: #### H CGUR #### [facility] [address] [place] [address] #### IGNUR #### [facility] [address] [place] [address] Ethanol [Mass/Vol] Negative [facility] Comment on above: Performed By: #### H CGUR #### [facility] [address] [place] [address] #### IGNUR #### [facility] [address] [place] [address] Opiates Ql (U) Negative Normal [facility] Comment on above: Performed By: #### H CGUR #### [facility] [address] [place] [address] #### IGNUR #### [facility] [address] [place] [address] Oxycodone/Oxymorphon e Negative [facility] Comment on above: Performed By: #### H CGUR #### [facility] [address] [place] [address] #### IGNUR #### [facility] [address] [place] [address] THC Negative [facility] Comment on above: Performed By: #### H CGUR #### [facility] [address] [place] [address] #### IGNUR #### [facility] [address] [place] [address] [facility] Comment SEE BELOW [facility] Comment on above: Result Comment: The expected value for the drugs listed above is Negative. The following drugs or drug groups have been screened for by Immunoassay at the thresholds listed: Amphetamine class(1000 ng/mL), Barbiturates(200 ng/mL), Benzodiazepines(200 ng/mL),Cocaine(300 ng/mL), Ethanol(50 ng/dL),Opiates(300 ng/mL),Oxycodone(100 ng/mL), and THC(50 ng/mL). POSITIVE results are NOT confirmed by a more specific alternative method unless requested. If confirmation is needed, request confirmation under separate order. NOTE: These results are for medical treatment only. Analysis performed using non-forensic procedures. Performed By: #### H CGUR #### [address] [address] #### IGNTRINA #### [address] [address] Amphetamines Ql (U) Negative [facility], [place] Benzodiazepines Ql (U) Negative [facility], [place] Cocaine Ql (U) Negative [facility], [place] Ethanol [Mass/Vol] Negative [facility], [place] Opiates Ql (U) Negative [facility] [place], [place] Sodium [Moles/Vol] Positive [place], [place] Sodium [Moles/Vol] SEE BELOW [place], [place] Comment on above: The expected value f or the drugs listed above is Negative. The following drugs or drug groups have been screened for by Immunoassay at the thresholds listed: Amphetamine class(1000 ng/mL), Barbiturates(200 ng/mL), Benzodiazepines(200 ng/mL),Cocaine(300 ng/mL), Ethanol(50 ng/dL),Opiates(300 ng/mL),Oxycodone(100 ng/mL), and THC(50 ng/mL). POSITIVE results are NOT confirmed by a more specific alternative method unless requested. If confirmation is needed, request confirmation under separate order. NOTE: These results are for medical treatment only. Analysis performed using non-forensic procedures. Test Performed by [facility], [address] [place] [address] [place], [place] Metabolic Panelon 11-14-2019 Sodium [Moles/Vol] Negative [place], [place] , Urineon 0 Beta HCG ( test) Ql (U) Negative Negative NA [place], [place] Comment on above: is the mos t common reason for HCG in urine, although choriocarcinoma, hydatidiform mole, and certain nontropho- blastic malignancies also result in detectable urinary HCG levels. Sensitivity = 20mIU/mL. Test Performed by [facility], [address] [place] [id number] [place], [place] Complete Urinalysison 2019 Appearance (U) Turbid Normal Clear [facility] Comment on above: Performed By: #### C UA2, DRGA4 #### [place] [address] [place], [place] Bacteria LM.HPF (Urine sed) [#/Area] Few Normal Negative [facility] Comment on above: Performed By: #### C UA2, DRGA4 #### [place] [address] [address] [place], [place] Bilirubin,Urine Negative Normal Negative [facility] Comment on above: Performed By: #### C UA2, DRGA4 #### [place] [address] [address] [place], [place] Cast, Hyaline Negative Normal Negative [facility] Comment on above: Performed By: #### C UA2, DRGA4 #### [place] [address] [address] [place], [place] Color (U) Light-Yellow Normal Lt. Yellow [facility] Comment on above: Performed By: #### C UA2, DRGA4 #### [place] [address] [address] [place], [place] Glucose Ql (U) Normal Normal Normal (<70) [facility] Comment on above: Performed By: #### C UA2, DRGA4 #### [place] [address] [address] [place], [place] Ketone,Urine Negative Normal Negative [facility] Comment on above: Performed By: #### C UA2, DRGA4 #### [place] [address] [address] [place], [place] Leukocytes,Urine 25 Alex/uL Normal Negative [facility] Comment on above: Performed By: #### C UA2, DRGA4 #### [place] [address] [address] [place], [place] Mucous Threads Few Normal Negative [facility] Comment on above: Performed By: #### C UA2, DRGA4 #### [place] [address] [address] [place], [place] Nitrites,Urine Negative Normal Negative [facility] Comment on above: Performed By: #### C UA2, DRGA4 #### [place] [address] [address] [place], [place] Occult Blood,Urine Negative Normal Negative [facility] Comment on above: Performed By: #### C UA2, DRGA4 #### [place] [address] [place] pH (U) 6.0 Normal 5.0-8.0 [facility] Comment on above: Performed By: #### C UA2, DRGA4 #### [place] [address] [address] [place], [place] Protein (U) [Mass/Vol] Negative Normal Negative [facility] Comment on above: Performed By: #### C UA2, DRGA4 #### [address] RBC LM.HPF (Urine sed) [#/Area] 3 - 5 Normal 0-2 [facility] Comment on above: Performed By: #### C UA2, DRGA4 #### [place] [address] [place], [place] Specific [place],Urine 1.009 Normal 1.005-1.030 [facility] Comment on above: Performed By: #### C UA2, DRGA4 #### [address] Squamous Epithelial 6 - 10 Normal 3-5 [facility] Comment on above: Performed By: #### C UA2, DRGA4 #### [address] Urobilinogen,Urine Normal Normal Normal (0-1) [facility] Comment on above: Performed By: #### C UA2, DRGA4 #### [address] WBC LM.HPF (Urine sed) [#/Area] 3 - 5 Normal 0-5 [facility] Comment on above: Performed By: #### C UA2, DRGA4 #### [place] [address] [place], [place] Drugs of Abuseon 10-29-2019 Phencyclidine (PCP), Ur Negative Normal [facility] Comment on above: Result Comment: The expected value for all of the drugs listed above is Negative. The following drugs or drug groups have been screened for by Immunoassay at the following thresholds: Amphetamine class (1000 ng/mL), Barbiturates (200 ng/mL), Benzodiazepines (200 ng/mL), Cocaine (300 ng/mL), Methadone (300 ng/mL), Opiates (300 ng/mL), Oxycodone (100 ng/mL), and PCP (25 ng/mL). NOTE: These results are for medical treatment only. Analysis performed using non-forensic procedures. POSITIVE results are NOT confirmed by a more specific alternative method unless requested. If confirmation is needed, request confirmation under separate order. Performed By: #### C UA2, DRGA4 #### [place] [address] [place] [address] Methadone, Ur Negative Normal [facility] Comment on above: Performed By: #### C UA2, DRGA4 #### [place] [address] [place], [place] Opiates, Ur Negative Normal [facility] Comment on above: Performed By: #### C UA2, DRGA4 #### [place] [address] [place] [address] Cocaine, Ur Negative Normal [facility] Comment on above: Performed By: #### C UA2, DRGA4 #### [place] [address] [place] [address] Barbiturates, Ur Negative Normal [facility] Comment on above: Performed By: #### C UA2, DRGA4 #### [place] [address] [place] [address] Benzodiazepines, Ur Negative Normal [facility] Comment on above: Performed By: #### C UA2, DRGA4 #### [place] [address] [facility] [place] [address] Amphetamines, Ur Negative Normal [facility] Comment on above: Performed By: #### C UA2, DRGA4 #### [place] [address] [facility] [place] [address] Oxycodone/Oxymorphin e,Ur Negative Normal [facility] Comment on above: Performed By: #### C UA2, DRGA4 #### [address] Basic Metabolic Panelon 10-11 Anion gap [Moles/Vol] 10 Normal [facility] Comment on above: Performed By: #### H EMDF, BMP3, LFT3, ETOH4 #### [address] Calcium [Mass/Vol] 9.7 mg/dL Normal 8.4-10.4 [facility] Comment on above: Performed By: #### H EMDF, BMP3, LFT3, ETOH4 #### [address] CO2 [Moles/Vol] 32 mmol/L High 22-30 [facility] Comment on above: Performed By: #### H EMDF, BMP3, LFT3, ETOH4 #### [address] Creatinine [Mass/Vol] 0.66 mg/dL Normal 0.52-1.25 [facility] Comment on above: Performed By: #### H EMDF, BMP3, LFT3, ETOH4 #### [address] GFR/1.73 sq M predicted among blacks MDRD (S/P/Bld) [Vol rate/Area] mL/min/{1.73_m2} Normal >60 [facility] Comment on above: Performed By: #### H EMDF, BMP3, LFT3, ETOH4 #### [address] GFR/1.73 sq M predicted among non-blacks MDRD (S/P/Bld) [Vol rate/Area] mL/min/{1.73_m2} Normal >60 [facility] Comment on above: Result Comment: Sour ce- MDRD equation with creatinine calibration to IDMS(NKDEP) eGFR not recommended for drug dose adjustment Performed By: #### H EMDF, BMP3, LFT3, ETOH4 #### [address] [place], [place] Glucose [Mass/Vol] 102 mg/dL High 70-100 [facility] Comment on above: Performed By: #### H EMDF, BMP3, LFT3, ETOH4 #### Formerly [facility] [address] [place], [place] Urea nitrogen [Mass/Vol] 9 mg/dL Normal 7-20 [facility] Comment on above: Performed By: #### H EMDF, BMP3, LFT3, ETOH4 #### [place] [address], [place] Chloride [Moles/Vol] 102 mmol/L Normal 98-107 [facility] Comment on above: Performed By: #### H EMDF, BMP3, LFT3, ETOH4 #### [place] [address] [place], [place] Potassium [Moles/Vol] 4.0 mmol/L Normal 3.5-5.1 [facility] Comment on above: Performed By: #### H EMDF, BMP3, LFT3, ETOH4 #### [place] [address] [place], [place] Sodium [Moles/Vol] 144 mmol/L Normal 135-145 [facility] Comment on above: Performed By: #### H EMDF, BMP3, LFT3, ETOH4 #### [place] [address] [place], [place] Ethanol Serum/Plasmaon 10-28 Ethanol-Serum/Plasma 0.351 g/dL Critically high 0.000-0.01 0 [facility] Comment on above: Result Comment: NOTE : This result is for medical treatment only. Analysis performed using non-forensic procedures. Performed By: #### H EMDF, BMP3, LFT3, ETOH4 #### [place] [address] [place], [place] Hematologyon 10-28-2019 Basophils/100 WBC (Bld) 0.9 % 0 - 2 % [facility], [place] Eosinophils (Bld) [#/Vol] 0.0 10*3/uL 0 - 0.5 10*3/uL [place] Eosinophils/100 WBC (Bld) 0.8 % Low 1 - 6 % [place] Hematocrit (Bld) [Volume fraction] 43.2 % 35 - 47 % [place] Hemoglobin (Bld) [Mass/Vol] 14.5 g/dL 11.7 - 16 g/dL [place] Lymphocytes (Bld) [#/Vol] 1.7 10*3/uL 1 - 4.3 10*3/uL [place] Lymphocytes/100 WBC (Bld) 49.4 % High 20 - 40 % [place] MCH (RBC) [Entitic mass] 32.2 pg 26 - 34 pg [place] MCV (RBC) [Entitic vol] 95.7 fL 79 - 98 fL [place] Monocytes (Bld) [#/Vol] 0.3 10*3/uL 0 - 0.8 10*3/uL [place] Monocytes/100 WBC (Bld) 8.9 % 2 - 10 % [place] Platelets (Bld) [#/Vol] 317 10*3/uL 140 - 440 10*3/uL [place] RBC (Bld) [#/Vol] 4.52 10*6/uL 3.8 - 5.2 10*6/uL [place] WBC (Bld) [#/Vol] 3.5 10*3/uL Low 3.6 - 10.7 10*3/uL [place] Hemogram w/ Autodiffon 10-28 Abs Baso Cnt 0.0 10*3/uL Normal 0.0-0.2 [facility] Comment on above: Performed By: #### H EMDF, BMP3, LFT3, ETOH4 #### [facility] [address] [place] [address] Abs Neutrophile Cnt 1.4 10*3/uL Low 1.8-7.0 [facility] Comment on above: Performed By: #### H EMDF, BMP3, LFT3, ETOH4 #### [facility] [address], [place] Basophils/100 WBC (Bld) 0.9 % Normal 0.0-2.0 [facility] Comment on above: Performed By: #### H EMDF, BMP3, LFT3, ETOH4 #### [address] Eosinophils (Bld) [#/Vol] 0.0 10*3/uL Normal 0.0-0.5 [facility] Comment on above: Performed By: #### H EMDF, BMP3, LFT3, ETOH4 #### [address] Eosinophils/100 WBC (Bld) 0.8 % Low 1.0-6.0 [facility] Comment on above: Performed By: #### H EMDF, BMP3, LFT3, ETOH4 #### [address] Erythrocyte distribution width (RBC) [Ratio] 14.0 % Normal 11.5-14.5 [facility] Comment on above: Performed By: #### H EMDF, BMP3, LFT3, ETOH4 #### [address] Granulocytes/100 WBC (Bld) 40.0 % Normal 40.0-80.0 [facility] Comment on above: Performed By: #### H EMDF, BMP3, LFT3, ETOH4 #### [address] Hematocrit (Bld) [Volume fraction] 43.2 % Normal 35.0-47.0 [facility] Comment on above: Performed By: #### H EMDF, BMP3, LFT3, ETOH4 #### [address] Hemoglobin (Bld) [Mass/Vol] 14.5 g/dL Normal 11.7-16.0 [facility] Comment on above: Performed By: #### H EMDF, BMP3, LFT3, ETOH4 #### [address] Lymphocytes (Bld) [#/Vol] 1.7 10*3/uL Normal 1.0-4.3 [facility] Comment on above: Performed By: #### H EMDF, BMP3, LFT3, ETOH4 #### [address] Lymphocytes/100 WBC (Bld) 49.4 % High 20.0-40.0 [facility] Comment on above: Performed By: #### H EMDF, BMP3, LFT3, ETOH4 #### [address] MCH (RBC) [Entitic mass] 32.2 pg Normal 26.0-34.0 [facility] Comment on above: Performed By: #### H EMDF, BMP3, LFT3, ETOH4 #### [address] MCHC (RBC) [Mass/Vol] 33.6 % Normal 32.0-36.0 [facility] Comment on above: Performed By: #### H EMDF, BMP3, LFT3, ETOH4 #### [address] MCV (RBC) [Entitic vol] 95.7 fL Normal 79.0-98.0 [facility] Comment on above: Performed By: #### H EMDF, BMP3, LFT3, ETOH4 #### [address] Monocytes (Bld) [#/Vol] 0.3 10*3/uL Normal 0.0-0.8 [facility] Comment on above: Performed By: #### H EMDF, BMP3, LFT3, ETOH4 #### [address] Monocytes/100 WBC (Bld) 8.9 % Normal 2.0-10.0 [facility] Comment on above: Performed By: #### H EMDF, BMP3, LFT3, ETOH4 #### [address] Platelet mean volume (Bld) [Entitic vol] 6.9 fL Low 7.4-10.4 [facility] Comment on above: Performed By: #### H EMDF, BMP3, LFT3, ETOH4 #### [facility] [address] [place], [place] Platelets (Bld) [#/Vol] 317 10*3/uL Normal 140-440 [facility] Comment on above: Performed By: #### H EMDF, BMP3, LFT3, ETOH4 #### [place] [address], [place] RBC (Bld) [#/Vol] 4.52 10*6/uL Normal 3.80-5.20 [facility] Comment on above: Performed By: #### H EMDF, BMP3, LFT3, ETOH4 #### [place] [address], [place] WBC (Bld) [#/Vol] 3.5 10*3/uL Low 3.6-10.7 [facility] Comment on above: Performed By: #### H EMDF, BMP3, LFT3, ETOH4 #### [place] [address], [place] Hepatic Functionon 0 ALP [Catalytic activity/Vol] 80 U/L Normal 38-126 [facility] Comment on above: Performed By: #### H EMDF, BMP3, LFT3, ETOH4 #### [place] [address], [place] ALT [Catalytic activity/Vol] 71 U/L High 13-69 [facility] Comment on above: Performed By: #### H EMDF, BMP3, LFT3, ETOH4 #### [place] [address] [place], [place] AST [Catalytic activity/Vol] 61 U/L High 15-46 [facility] Comment on above: Performed By: #### H EMDF, BMP3, LFT3, ETOH4 #### [place] [address] [place] [address] Bilirubin [Mass/Vol] 0.2 mg/dL Normal 0.2-1.3 [facility] Comment on above: Performed By: #### H EMDF, BMP3, LFT3, ETOH4 #### [place] [address] [place] [address] Bilirubin.direct [Mass/Vol] 0.0 mg/dL Normal 0.0-0.3 [facility] Comment on above: Performed By: #### H EMDF, BMP3, LFT3, ETOH4 #### [place] [address] [place] [address] Protein [Mass/Vol] 8.4 g/dL High 6.3-8.2 [facility] Comment on above: Performed By: #### H EMDF, BMP3, LFT3, ETOH4 #### [place] [address] [place] [address] Albumin [Mass/Vol] 4.8 g/dL Normal 3.5-5.0 [facility] Comment on above: Performed By: #### H EMDF, BMP3, LFT3, ETOH4 #### [place] [address] [place] [address] Metabolic Panelon 10-28-2019 Albumin [Mass/Vol] 4.8 g/dL 3.5 - 5 g/dL [place] ALP [Catalytic activity/Vol] 80 U/L 38 - 126 U/L [place] ALT [Catalytic activity/Vol] 71 U/L High 13 - 69 U/L [place] Anion gap [Moles/Vol] 10 mmol/L [place] AST [Catalytic activity/Vol] 61 U/L High 15 - 46 U/L [place] Bilirubin.direct [Mass/Vol] 0.0 mg/dL 0 - 0.3 mg/dL [place] Calcium [Mass/Vol] 9.7 mg/dL 8.4 - 10. 4 mg/dL [place] Chloride [Moles/Vol] 102 mmol/L 98 - 10 7 mmol/L [place] CO2 [Moles/Vol] 32 mmol/L High 22 - 30 mmol/L [facility], [place] Creatinine [Mass/Vol] 0.66 mg/dL 0.52 - 1.25 mg/dL [facility], [place] GFR/1.73 sq M predicted among blacks MDRD (S/P/Bld) [Vol rate/Area] mL/min/{1.73_m2} >60 mL/min [facility] Glucose [Mass/Vol] 102 mg/dL High 70 - 100 mg/dL [facility] Potassium [Moles/Vol] 4.0 mmol/L 3.5 - 5.1 mmol/L [facility] Protein [Mass/Vol] 8.4 g/dL High 6.3 - 8.2 g/dL [facility] Sodium [Moles/Vol] 144 mmol/L 135 - 145 mmol/L [facility] Urea nitrogen [Mass/Vol] 9 mg/dL 7 - 20 mg/dL [facility] Otheron 10-28-2019 Amphetamines, urine Negative [facility], [place] Barbiturates, Ur [facility] [place] [place] Benzodiazepine Ur Qual Negative [facility], [place] Cocaine Metabolites, Ur Negative [facility], [place] Methadone, Urine Negative [facility] [place] Opiates, Urine Negative [facility] [place], [place] Oxycodone Screen, Ur Negative [facility], [place] PCP, Urine Negative [facility], [place] Comment on above: The expected value f or all of the drugs listed above is Negative. The following drugs or drug groups have been screened for by Immunoassay at the following thresholds: Amphetamine class (1000 ng/mL), Barbiturates (200 ng/mL), Benzodiazepines (200 ng/mL), Cocaine (300 ng/mL), Methadone (300 ng/mL), Opiates (300 ng/mL), Oxycodone (100 ng/mL), and PCP (25 ng/mL). NOTE: These results are for medical treatment only. Analysis performed using non-forensic procedures. POSITIVE results are NOT confirmed by a more specific alternative method unless requested. If confirmation is needed, request confirmation under separate order. Test Performed by [facility], [address] [place] [id number] [place], [place] Bacteria, UA Few Negative /[HPF] [place] Bilirubin Urine Negative Negative mg/dL [place] Glucose, Ur Normal Normal (<70) mg/dL [place] Hyaline Casts, UA Negative Negative /[LPF] [place] LEUKOCYTES, UA 25 Negative Alex/uL [place] Mucous Threads Few Negative /[LPF] [place] Nitrite, Urine Negative Negative [facility] [place] [place] Occult Blood,Urine Negative Negative mg/dL [place] pH (U) 6.0 [pH] [place] RBC (U) [#/Vol] 3-5 0 - 2 /[HPF] [place], [place] Specific [place], Urine 1.009 [place] Squam Epithel, UA 6-10 3 - 5 /[HPF] [place] Urobilinogen, Urine Normal Normal ( 0-1) mg/dL [place] WBC, UA 3-5 0 - 5 /[HPF] [place] Test Performed by [address] [address] [place] Interpretation and review of laboratory results Normal [place] Negative QC Pass/Fail Pass [place] Positive QC Pass/Fail Pass [place] Ethanol Lvl 0.351 g/dL Critically high 0 - 0.01 g/dL [place] Comment on above: NOTE: This result is for medical treatment only. Analysis performed using non-forensic procedures. Interpretation and review of laboratory results Abnormal [place] Test Performed by [address] [address] [place] Bilirubin Ql (U) 0.2 mg/dL 0.2 - 1.3 mg/dL [place] EGFR IF NonAfrican Cypriot >60.0 >60 mL/min [place] Comment on above: Source- MDRD equatio n with creatinine calibration to IDMS(NKDEP) eGFR not recommended for drug dose adjustment Interpretation and review of laboratory results Abnormal [place] Test Performed by [address] [address] [place] Absolute Baso # 0.0 10*3/uL 0 - 0.2 10*3/uL [place] Absolute Neut # 1.4 10*3/uL Low 1.8 - 7 10*3/uL [place] Erythrocyte distribution width (RBC) [Ratio] 14.0 % 11.5 - 14.5 % [place] Granulocytes/100 WBC (Bld) 40.0 % 40 - 80 % [place] Interpretation and review of laboratory results Abnormal [place] MCHC (RBC) [Mass/Vol] 33.6 % 32 - 36 % [place] Platelet mean volume (Bld) [Entitic vol] 6.9 fL Low 7.4 - 10.4 fL [place] Test Performed by [address] [address] [place] Urinalysison 10-28-2019 Appearance (U) Turbid Clear NA [place], [place] Color (U) Light-Yellow Lt. Yellow NA [facility] [place] Ketones Ql (U) Negative Negative mg/dL [place] Protein (U) [Mass/Vol] Negative Negative mg/dL [place] Beta HCG ( test) Ql (U) [id number] [place] Beta HCG ( test) Ql (U) Negative Negative [place] Vital Signs Date Time Vital Sign Value Performing Clinician Facility 12-25-2022 07:30-0400 Body height 160 cm Mary Ellen Solano APRN.KAILA Work Phone: [facility] 12-25-2022 07:30-0400 Body weight 70.76 kg Mary Ellen Solano APRN.KAILA Work Phone: [facility] 12-25-2022 07:30-0400 Diastolic blood pressure 100 mm[Hg] Mary Ellen Solano APRN.KAILA Work Phone: [facility] 12-25-2022 07:30-0400 Heart rate 94 /min Mary Ellen Xiomara QUALITY ASSURANCE SUPERVISOR FINAL.FUNERAL ARRANGER Work Phone: [facility] 12-25-2022 07:30-0400 Respiratory rate 16 /min Mary Ellen Xiomara QUALITY ASSURANCE SUPERVISOR FINAL.FUNERAL ARRANGER Work Phone: [facility] 12-25-2022 07:30-0400 SaO2% (BldA) [Mass fraction] 96 % Mary Ellen Johnmikhail QUALITY ASSURANCE SUPERVISOR FINAL.FUNERAL ARRANGER Work Phone: [facility] 12-25-2022 07:30-0400 Systolic blood pressure 128 mm[Hg] Mary Ellensalma Solano QUALITY ASSURANCE SUPERVISOR FINAL.FUNERAL ARRANGER Work Phone: [facility] 11-03-2019 17:22-0500 Body Temperature 99.1 [degF] [facility] [place] 11-03-2019 17:22-0500 BP Diastolic 96 mm[Hg] [place], [place] 11-03-2019 17:22-0500 BP Systolic 120 mm[Hg] [place] 11-03-2019 17:22-0500 Pulse (Heart Rate) 81 /min [place] 11-03-2019 17:22-0500 Pulse Oximetry 98 % [place] 11-03-2019 17:22-0500 Respiratory Rate 18 /min [place], [place] 10-30-2019 13:45-0500 Height 160 cm [place] 10-28-2019 19:47-0500 BMI (Body Mass Index) 23.21 kg/m2 [place] 10-28-2019 19:47-0500 Body weight 59.42 kg [place] 01-19-2019 09:23-0400 Body Temperature 96.91 [degF] Nate [facility] 01-19-2019 09:23-0400 Body weight 57.15 kg Nate Min [facility] 01-19-2019 09:23-0400 BP Diastolic 89 mm[Hg] [facility] 01-19-2019 09:23-0400 BP Systolic 128 mm[Hg] [facility] 01-19-2019 09:23-0400 Pulse (Heart Rate) 73 /min Nate [facility] 01-19-2019 09:23-0400 Pulse Oximetry 98 % Nate [facility] 01-19-2019 09:23-0400 Respiratory Rate 16 /min Nate Min [facility] Encounters Encounter Date Encounter Type Care Provider Facility Start: 10-21-2024 End: 11-21-2024 ambulatory Serenity Boone MD Work Phone: [facility] [place] Start: 11-14-2023 ambulatory Serenity batista MD Work Phone: Internal Medicine [facility] Start: 03-19-2023 Telephone encounter Mary Ellen portillo APRN.FUNERAL ARRANGER Work Phone: [facility] [place] Comment on above: cancelled request Start: 01-22-2023 Refill Serenity batista MD Work Phone: [facility] [place] Comment on above: Refill Request (need s today) Start: 12-27-2022 Telephone encounter Mary Ellen portillo APRN.FUNERAL ARRANGER Work Phone: [facility] Comment on above: Results (Labs ) Start: 12-25-2022 Telephone encounter Serenity infante MD Work Phone: [facility] [place] Comment on above: Appointment Start: 12-25-2022 End: 12-25-2022 Patient encounter procedure Mary Ellen Solano APRN.FUNERAL ARRANGER Work Phone: [facility] [place] Comment on above: Wellness examination (Primary Dx); Elevated blood pressure reading without diagnosis of hypertension; Anxiety with depression; Seasonal allergies; SOB (shortness of breath); Women's annual routine gynecological examination; Special screening for malignant neoplasms, colon; Screening cholesterol level; Screening for diabetes mellitus Start: 12-25-2022 End: 12-25-2022 Patient encounter status Mary Ellen Solano APRN.FUNERAL ARRANGER Work Phone: [facility] [place] Start: 12-13-2022 ambulatory Serenity batista MD Work Phone: Internal [facility] Start: 05-13-2022 End: 05-13-2022 Subsequent hospital visit by physician [facility] Work Phone: Radiology Comment on above: Acute cough [R05.1] Start: 01-11-2022 ambulatory Serenity batista MD Work Phone: Internal Medicine [facility] [place] Start: 12-29-2020 End: 12-29-2020 Subsequent hospital visit by physician [facility] Work Phone: Radiology Comment on above: Lower leg injury, ri ght, initial encounter [S89.91XA] Start: 10-29-2019 Patient encounter procedure [employer], [place] Start: 10-28-2019 Patient encounter procedure [employer] [place] Start: 01-19-2019 End: 01-19-2019 Patient encounter procedure SHANKAR GARY [facility] Start: 01-19-2019 End: 01-19-2019 Office outpatient new 30 minutes Nate Min Work Phone: [facility] [place] Comment on above: Rhinosinusitis (Prim hilda Dx) Procedures Date Procedure Procedure Detail Performing Clinician Start: 12-25-2022 Lipid 1996 panel - S ted or Plasma Serenity Boone MD Work Phone: Start: 05-13-2022 Radiologic exam ches t 2 views Maria Ines Frazier APRN.FUNERAL ARRANGER Work Phone: Start: 01-14-2021 Adult depression scr eening assessment Serenity Boone MD Work Phone: Start: 12-29-2020 Radiologic examinati on tibia & fibula 2 views Musa Palmer APRN.FUNERAL ARRANGER Work Phone: Start: 11-13-2019 IGNATIA DRUG SCREEN Michael Padron Work Phone: Start: 11-13-2019 Urine test visual color cmprsn meths Carlton Padron Work Phone: Start: 10-28-2019 Drug screen class list a Boris Garcia Work Phone: Start: 10-28-2019 Urnls dip stick/tabl et rgnt auto w/o microscopy Boris Garcia Work Phone: Start: 10-28-2019 Urine test visual color cmprsn meths Boris Bardales Radha Work Phone: Start: 10-28-2019 Assay of ethanol Boris Bardales Radha Work Phone: Start: 10-28-2019 Basic metabolic pane l calcium total Boris Catia Garcia Work Phone: Start: 10-28-2019 Blood count complete auto&auto difrntl wbc Boris Bardales Radha Work Phone: Start: 10-28-2019 Hepatic function panel Boris Catia Garcia Work Phone: Start: 02-26-2017 Mammography Serenity maynard MD Work Phone: Plan of Treatment Date Care Activity Detail Author Start: 12-26-2027 Lipid panel Lipid Screening [facility] Start: 12-26-2027 LIPID SCREEN LIPID SCREEN [facility] Start: 07-17-2026 DTaP/Tdap/Td vaccine (2 - Td) DTaP/Tdap/Td vaccine (2 - Td) [place] Start: 07-17-2026 Urine microalbumin profile [facility] Start: 12-25-2025 [facility]ABET[facility]EN [facility] Start: 12-25-2025 Diabetes Screening Diabetes Screenin g [facility] Start: 05-11-2024 Covid-19 Vaccine ( season) Covid-19 Vaccine ( season) [facility] Start: 05-11-2024 Influenza vaccination Influenza Vacc ine (#1) [facility] Start: 12-26-2023 COVID-19 VACCINE (#1) COVID-19 VACCI NE (#1) [facility] Comment on above: Postponed from 07/09 (Declined at this time) Start: 12-26-2023 HEPATITIS B (1 of 3 - 3-dose series) HEPATITIS B (1 of 3 - 3-dose series) [facility] Comment on above: Postponed from 01/07 (Declined at this time) Start: 12-26-2023 Hepatitis B Vaccine (1 of 3 - 3-dose series) Hepatitis B Vaccine (1 of 3 - 3-dose series) [facility] Comment on above: Postponed from 01/07 (Declined at this time) Start: 12-26-2023 HEPATITIS C SCREENING HEPATITIS C [facility] Comment on above: Postponed from 01/07 (Declined at this time) Start: 12-26-2023 Hepatitis C screening Hepatitis C [facility] Comment on above: Postponed from 01/07 (Declined at this time) Start: 12-26-2023 HIV SCREENING HIV SCREENING [facility] Comment on above: Postponed from 01/07 (Declined at this time) Start: 12-26-2023 HIV screening HIV Screening [facility] Comment on above: Postponed from 01/07 (Declined at this time) Start: 09-10-2023 Depression Assessment Depression Ass essment [facility] Start: 05-11-2023 Influenza vaccination [facility] Start: 01-26-2023 End: 03-28-2023 Comprehensive metabolic 2000 panel - Serum or Plasma COMP METABOLIC PANEL Lab Routine Elevated LFTs Expected: 01/26/2023, Expires: 03/28/2023 [facility] Work Phone: Comment on above: Expected: 01/26/2023 , Expires: 03/28/2023 Start: 2023 Pneumococcal Vaccine : 50+ (1 of 1 - PCV) Pneumococcal Vaccine: 50+ (1 of 1 - PCV) [facility] Start: 2023 Shingles Vaccine (1 of 2) Shingles Vaccine (1 of 2) [facility] [place] Start: 2023 SHINGRIX VACCINE (1 of 2) SHINGRIX VACCINE (1 of 2) [facility] Start: 12-25-2022 End: 02-24-2023 Comprehensive metabolic 2000 panel - Serum or Plasma [facility] Work Phone: Comment on above: Expected: 12/25/2022 , Expires: 02/24/2023 Start: 12-25-2022 End: 02-24-2023 Hemoglobin A1c in Blood [facility] Work Phone: Comment on above: Expected: 12/25/2022 , Expires: 02/24/2023 Start: 12-25-2022 End: 02-24-2023 Lipid 1996 panel - Serum or Plasma [facility] Work Phone: Comment on above: Expected: 12/25/2022 , Expires: 02/24/2023 Start: 09-10-2022 DEPRESSION ASSESSMENT DEPRESSION ASS ESSMENT [facility] Start: 01-14-2022 Adult depression screening assessment DEPRESSION SCREENING [facility] Start: 03-20-2021 HPV TESTING HPV TESTING [facility] Start: 03-20-2021 PAP TESTING PAP TESTING [facility] Start: 03-20-2021 Screening for malign ant neoplasm of cervix [facility] Start: 02-23-2021 LIPID SCREEN LIPID SCREEN [facility] Start: 05-11-2019 Influenza vaccination Flu vaccine (# 1) [place] Start: 05-11-2019 Influenza vaccinatio n given SEQUENTIAL INFLUENZA VACCINE (Season Ended) [facility] Start: 02-23-2019 DIABETES SCREEN DIABETES SCREEN [facility] Start: 02-26-2018 Mammography MAMMOGRAM [facility] Start: 02-26-2018 Screening for malign ant neoplasm of breast Mammogram Screening [facility] Start: 2018 COLOGUARD (FIT-DNA) COLOGUARD (FIT-D NA) [facility] Start: 2018 Colonoscopy COLONOSCOPY [facility] Start: 2018 COLORECTAL CANCER SCREENING COLORECTAL CANCER SCREENING [facility] Start: [address] COLONOGRAPHY [facility] Start: 2018 FECAL OCCULT BLOOD FECAL OCCULT BLOO D [facility] Start: 2018 Screening for malign ant neoplasm of colon [facility] Start: 2018 SIGMOIDOSCOPY SIGMOIDOSCOPY [facility] Start: 2013 Lipid screen Lipid screen [employer] [facility] [place], [place] Start: 1994 Cervical cancer screen Cervical canc er screen [place] Start: 01-08-1992 Hepatitis B Vaccine (1 of 3 - 19+ 3-dose series) Hepatitis B Vaccine (1 of 3 - 19+ 3-dose series) [facility] Start: 1991 Anxiety Screening Anxiety Screening [facility] Start: 1991 Depression Screening Depression Scre ening [facility] Start: 1991 HEPATITIS C SCREENING HEPATITIS C [facility] Start: 1991 Hepatitis C screening Hepatitis C [facility] Start: 1991 HIV SCREENING HIV SCREENING [facility] Start: 1991 HIV screening HIV Screening [facility] Start: 01-08-1988 HIV screen HIV screen [place], [place] Start: 1979 Pneumococcal 0-64 ye ars Vaccine (1 of 1 - PPSV23) Pneumococcal 0-64 years Vaccine (1 of 1 - PPSV23) [place] Start: 1978 COVID-19 VACCINE (1) COVID-19 VACCIN E (1) [facility] Start: 01-08-1976 History and physical examination, annual for health maintenance Wellness Visit [facility] Start: 1973 COVID-19 VACCINE (#1) COVID-19 VACCI NE (#1) [facility] [facility] Start: 1975 HEPATITIS B (1 of 3 - 3-dose series) HEPATITIS B (1 of 3 - 3-dose series) [facility] Start: 1975 Screening for malign ant neoplasm of cervix PAP SMEAR [facility] Start: 1975 Screening mammography [facility]ogram [facility] Start: 1973 Tetanus vaccination TETANUS EVERY 10 YR [facility] End: 11-20-2025 DBT Breast - bilateral screening KATHRYN SCREENING [facility] Radiology Routine Encounter for screening mammogram for breast cancer 1 Occurrences starting 10/21/2024 until 11/20/2025 [facility] Work Phone: Comment on above: 1 Occurrences starti ng 10/21/2024 until 11/20/2025 End: 01-12-2024 KATHRYN SCREENING KATHRYN SCREENING Radiology Routine Encounter for screening mammogram for breast cancer 1 Occurrences starting 12/13/2022 until 01/12/2024 [facility] Work Phone: Comment on above: 1 Occurrences starti ng 12/13/2022 until 01/12/2024 End: 12-13-2024 MG Breast Screening KATHRYN SCREENING Radiology Routine Encounter for screening mammogram for breast cancer 1 Occurrences starting 11/14/2023 until 12/13/2024 [facility] Work Phone: Comment on above: 1 Occurrences starti ng 11/14/2023 until 12/13/2024 End: 12-26-2023 Screening colonoscopy COLONOSCOPY SCREENING Endoscopy Routine Special screening for malignant neoplasms, colon 1 Occurrences starting 12/25/2022 until 12/26/2023 [facility] Work Phone: Comment on above: 1 Occurrences starti ng 12/25/2022 until 12/26/2023 End: 02-10-2023 Screening mammography bi 2-view breast inc cad KATHRYN SCREENING Radiology Routine Encounter for screening mammogram for breast cancer 1 Occurrences starting 01/11/2022 until 02/10/2023 [facility] Work Phone: Comment on above: 1 Occurrences starti ng 01/11/2022 until 02/10/2023 [facility] Immunizations Immunization Date Immunization Notes Care Provider [facility] 08-24-2021 influenza virus vaccine, unspecified formulation Serenity Boone MD Work Phone: [facility] 07-17-2016 influenza, injectabl e, quadrivalent, contains preservative Serenity Boone MD Work Phone: [facility] 07-17-2016 tetanus toxoid, redu delfino diphtheria toxoid, and acellular pertussis vaccine, adsorbed Serenity Boone MD Work Phone: [facility] Payers Date Payer Category Payer Medicaid [place] [employer] [place] [employer] [id number] 2019-Present [phone] [id number] Medicaid [id number] 2019 Medicaid [id number] 2015 Medicaid [id number] 2015 Unknown xxxxxxxxxxxx [id number] 1973 Unknown [id number] Social History Date Type Detail Facility Start: 10-29-2019 End: 05-13-2022 Tobacco smoking status NHIS Former smoker [facility] Start: 09-10-1998 End: 09-10-2017 History of tobacco use Cigarette Smoker [facility] Start: 10-29-2019 End: 12-25-2022 Alcohol intake Current drinker of alcohol (finding) [place] [facility] Start: 10-29-2019 Alcohol Comment one bottle a d ay of vodka, pt unsure of exact amount/ [facility] Start: 1975 Sex Assigned At [facility] Start: 01-19-2019 Tobacco smoking stat us NEIS Never smoker [facility] Start: 09-10-1998 End: 09-10-2017 History of tobacco use Current smoker [facility] Start: 02-23-2016 End: 02-07-2023 Cigarettes smoked current (pack per day) - Reported 0.5 [facility] Work Phone: Start: 02-23-2016 End: 05-13-2022 Tobacco use and exposure Smokeless tobacco non-user [facility] Start: 04-03-2016 History SDOH Alcohol Comment Current alcohol user. Comments: Rarely [facility] Start: 12-25-2022 End: 02-07-2023 Tobacco use panel [facility] Work Phone: Adult Depression Screening Assessment 3 [facility] Work Phone: Start: 11-29-2020 End: 05-13-2022 Exposure to SARS-CoV-2 (event) Not sure [facility] Clinical Notes 12-29-2020 to 10-21-2024 Telephone Encounter - Bradley Rodriguez - 03/19/2023 2:07 PM EDTTelephone Encounter - Serenity Boone MD - 01/22/2023 2:13 PM EDTTelephone Encounter - Marcy Kay Ma - 01/22/2023 1:48 PM EDT Note Date & Type Note Facility 10-21-2024 Note Patient Outreach (FA MPWS) MELISSA RANDALL ([id number]) 1975 F Date Time Provider Department 10/21/24 SERENITY BOONE During your visit today, we recorded the following information about you: Allergies As of Date: 10/21/2024 (No Known Allergies) Date Reviewed: 12/25/2022 Reviewed by: Mary Ellen Solano APRN.FUNERAL ARRANGER - Fully Assessed Visit Diagnosis:Encounter for screening mammogram for breast cancer [Z12.31] Order(s):[facility] SCREENING [facility] [[id number]] Order #: [id number] FUTURE Prescriptions as of 11/21/2024 - albuterol HFA (PROVENTIL HFA, VENTOLIN HFA) 90 mcg/actuation inhaler Inhale 2 Puffs as instructed every 6 hours as needed for wheezing/shortness of breath. - OLANZapine (ZYPREXA) 5 mg tablet Take 1 tablet by mouth daily at bedtime. - meloxicam (MOBIC) 15 mg tablet Take 1 tablet by mouth once daily. With food. Problem List As Of Date 10/21/2024 Noted Resolved Adjustment insomnia [F51.02] 07/17/2016 Adjustment disorder with anxious mood [F43.22] 07/17/2016 Encounter Status:Closed by [employer] on 11/21/24 [facility] 03-19-2023 Miscellaneous Notes Formattin g of this note might be different from the original. 3rd failed attempt to schedule colonoscopy. Left VM, sent MyChart, and letter. Cancelled request, please place a new order when patient is ready to schedule. Thank you! IRLANDA 03/19 documented in this encounter [facility] 01-22-2023 Miscellaneous Notes Formattin g of this note might be different from the original. OK to refill as ordered Serenity Boone MD Last OV: 12/25/22 Next OV: 02/07/23 Last Rx: 12/25/22 #30 w/1. Marcy Kay Ma Patient has been identified by name and date of : Yes Requested Prescriptions Pending Prescriptions Disp Refills hydrOXYzine HCl (ATARAX) 25 mg tablet 30 tablet 2 Sig: Take 1 tablet by mouth three times daily as needed for anxiety. RX INSTRUCTIONS: Please send today Patient aware RX will be sent to pharmacy. No need to notify patient. Graciela Buckner Pss documented in this encounter [facility] 01-01-2023 Miscellaneous Notes Formattin g of this note might be different from the original. Message to call office to schedule. Brief note also sent. Message to call office to schedule. Message to call office to schedule. Pt has consult to psychiatry. Please advise. Thank you Nanci PSS documented in this encounter [facility] 01-01-2023 Miscellaneous Notes Formattin g of this note might be different from the original. Message below left on pt identified VM. Amy Manley Ma TC to pt. LM to call office, ask for triage nurse to get results. Kate Mitchell LPN Can you please call the patient and let her know that I would recommend withholding the Tylenol and alcohol at this time. Try to decrease any processed foods in the diet. Increase lean cuts of meat, vegetables, and get some form of exercise. We can recheck liver enzymes in 1 month. I would recommend that she continue with the Zyprexa as prescribed. Thank you. Mary Ellen Solano APRN.CNP Patient notified of results and provider's instructions. Patient verbalizes understanding. Patient states that she does have wine on occasion. Patient take Tylenol 325 mg tablets x 2 every so often for pain. Patient states that she takes it a few times a week. Patient states that she started zyprexa 2 days ago. Patient states that she has been feeling groggy since starting it but otherwise she feels ok. Stephanie Mas, RN TC to pt. LM to call office, ask for triage nurse to get results. Kate Mitchell LPN Can you please call the patient and let her know that I reviewed her lab results. A1c was 5.3, no signs of diabetes. Liver enzymes were elevated. Can you please ask if she has been using Tylenol or any alcohol? LDL cholesterol was significantly elevated as well. I would recommend that she work on lifestyle changes at home. Try to eat lean cuts of meat, increase vegetables, and get some form of exercise. Decrease processed foods in the diet. Can you please ask how she has been feeling since starting the Zyprexa? Thank you. Mary Ellen Solano APRN.CNP documented in this encounter [facility] 12-25-2022 Instructions Mary Ellen Solano APRN.FUNERAL ARRANGER - 12/25/2022 7:46 AM EDT Get labs completed today Schedule appointments for Pap, mammogram, and colonoscopy. Start Zyprexa 5 mg at bedtime, the office will reach out to psychiatry. May use Hydroxyzine 25 mg as needed for increase anxiety or panic. May make you sleepy. Use allergy eye drop once daily as needed Monitor blood pressure at home, check 1-2 times per day and bring readings to next office visit or call office. Follow up in 1 month or sooner as needed. Health Promotion: - Eat healthy -- go to [employer] to get started - Have a yearly physical - Mammogram yearly after age 40 - Get at least 30 minutes of physical activity daily - Get at least 7 to 8 hours of sleep each night - Reach and maintain a healthy weight - Get help to quit or don't start smoking - Limit alcohol use to one drink or less - Do not use illegal drugs or misuse prescription drugs - Wear a helmet when riding a bike and wear protective gear for sports - Wear a seatbelt in cars and not text and drive - Wear sunscreen Miralax/Dulcolax Bowel Prep For this bowel preparation, you will need to purchase the following medications at any pharmacy: Over the counter Miralax (generic name is polyethylene glycol) 8.3 oz or 238 grams Four (4) Dulcolax (generic name is Bisacodyl) tablets 3 days prior to your procedure, you need to be on a low fiber diet (Such as popcorn, beans, seeds, nuts, salad and raw vegetables, corn, fresh and dried fruit and multi-grain bread) YOU MUST BE ON CLEAR LIQUIDS FOR 2 FULL DAYS PRIOR TO YOUR COLONOSCOPY Day one which would be two days before your colonoscopy, you will need to be on clear liquids all day. You may have coffee or tea-black only (no cream), clear broths (beef, chicken or vegetable), apple juice, white grape juice, pop, Gatorade, Powerade, lemonade, Jello, popsicles, Rodolfo-aid, and water-But nothing red or dark purple in color and no dairy products, tomato or orange juices. Day two which would be the day before your colonoscopy continue clear liquids all day as above. And follow the instructions below: 8:00 AM - Mix the Miralax with 64 oz of Gatorade or another clear liquid of choice and place in refrigerator. Most people say the drink is better cold. 4:00 PM - Take 2 of the Dulcolax tablets with 8 oz of water. 6:00 PM - Start to drink the Miralax mixture. You must finish it by midnight. 8:00 PM - Take the other 2 Dulcolax tablets with 8 oz of water. You may continue to drink clear liquids while you are taking your prep and after you finish it as long as it is before midnight. Drink lots of fluids so you don t become dehydrated. Nothing to drink after midnight the night before the procedure unless you are instructed differently by the physician or nurses. Please remember to take your normal medications the morning of the procedure with a small sip of water especially your blood pressure medications. If you are diabetic, you need to contact your physician about how to take your diabetic medications and/or insulin during the prepping period and the day of your procedure. Any questions please call: Dr. Live or Dr. Bill [phone] Ruby Calzada [phone] Dr. Trejo [phone] [facility] nurses [phone] documented in this encounter [facility] 12-25-2022 History of Presen t illness Narrative This is a 47 year old female who presents today with: Patient presents with: Wellness HISTORY OF PRESENT ILLNESS: Melissa Randall is a 47 year old female. Patient presents with: Wellness Here in the office for wellness exam. Diet: Working on eating a well balanced diet. Exercise: Walking dogs daily. Vision: Had exam, wears glasses. Dental: Due for exam. Sleep: Sleep varies, 4 hours.Difficulty falling and staying asleep. Tried ambien in the past. Mood: Increase sadness and anxiety. Panic attacks 3 times a week. Some increase stress at home. No SI/HI.Mood has been up and down. Manic episodes, Will go 2-3 days without sleep. Has tried Celexa and zoloft. History of Anxiety: Was taking Lamictal, amitriptyline, and Vistaril. Was referred to psychiatry in 2020, no showed several appointments in and . Mother got sick and was unable to go to appointments. Mammogram: Has never had completed. Pap: Last Pap in 2015, HPV negative. Due at this time. Menses stopped over a year ago, but had some mild spotting. Hot flashes throughout the day. Has been dressing in layers and using cooling sheets. Colonoscopy: Has never had completed. Vaccines: Up to Date PAST MEDICAL HISTORY: PAST MEDICAL HISTORY Diagnosis Date Adjustment disorder with anxious mood Insomnia Malaise and fatigue Panic attacks PAST SURGICAL HISTORY Procedure Laterality Date ANKLE LEFT OP SURGERY 1996 ALLERGIES Patient has no known allergies. MEDICATIONS Current Outpatient Medications Medication Sig albuterol HFA (PROVENTIL HFA, VENTOLIN HFA) 90 mcg/actuation inhaler Inhale 2 Puffs as instructed every 6 hours as needed for wheezing/shortness of breath. meloxicam (MOBIC) 15 mg tablet Take 1 tablet by mouth once daily. With food. (Patient not taking: Reported on 05/13/2022) No current facility-administered medications for this visit. FAMILY HISTORY Problem Relation Age of Onset Diabetes Mother Hypertension Mother Blood Disease Mother Clotting Psychiatry Mother Depressive Disorder Obesity Mother Hyperlipidemia Father Alcohol/Drug Father Psychiatry Father Depressive Disorder Psychiatry Brother Breast Cancer Paternal Grandmother Social History Tobacco Use Smoking status: Former Packs/day: 0.50 Years: 7.00 Pack years: 3.50 Types: Cigarettes Start date: 09/10/1998 Quit date: 09/10/2017 Years since quittin.2 Smokeless tobacco: Never Vaping Use Vaping Use: Never used Substance Use Topics Alcohol use: Yes Alcohol/week: 2.5 - 5.0 standard drinks Types: 1 - 2 Cans of Beer (12oz) per week Comment: Current alcohol user. Comments: Rarely Drug use: Yes Types: Marijuana REVIEW OF SYSTEMS GENERAL: No weight loss, malaise or fevers/chills HEENT: Negative for frequent or significant headaches, No changes in hearing or vision. NECK: Negative for lumps, goiter, pain and significant neck swelling RESPIRATORY: Negative for cough, hemoptysis, wheezing, dyspnea or shortness of breath CARDIOVASCULAR: Negative for chest pain, leg swelling, orthopnea, or palpitations GI: No nausea, vomiting, or diarrhea/constipation. No hematochezia/melena. No heartburn or reflux symptoms. : No history of dysuria, frequency or incontinence MUSCULOSKELETAL: Negative for joint pain or swelling. SKIN: Negative for lesions, rash, and itching ENDOCRINE: Negative for cold or heat intolerance, polyuria, polydipsia and goiter NEURO: No history of headaches, syncope, paralysis, seizures or tremors MOOD: + Redness, anxiety, panic attacks, difficulty sleeping EXAM: BP 128/100 Pulse 94 Resp 16 Ht 160 cm (5' 2.99") Wt 70.8 kg (156 lb) LMP 06/24/2021 (Approximate) SpO2 96% BMI 27.64 kg/m PHYSICAL EXAM: General Appearance: Well appearing, alert, in no acute distress, well-hydrated, well nourished. Skin: Skin color, texture, turgor normal, no suspicious rashes or lesions. Head: Normocephalic, no masses, lesions, tenderness or abnormalities. Eyes: Anicteric sclera. Pupils are equally round and reactive to light. Extraocular movements are intact. Ears: External ears normal, canals clear. TMs pearly benton. Neck: Supple, no adenopathy; thyroid symmetric, normal size, no bruits. Lungs: Lungs clear to auscultation. No wheezing, rhonchi, rales. Heart: RRR without murmur, gallop, or rubs. No ectopy. Abdomen: Normal abdominal exam, Abdomen soft, non-tender. Bowel sounds normal. No masses, organomegaly, Negative CVA tenderness. Extremities: No deformities, edema, skin discoloration, clubbing or cyanosis. Good capillary refill. Musculoskeletal: No joint swelling, deformity, or tenderness. Peripheral Pulses: Normal, Capillary refill <2secs, strong peripheral pulses, Pulses palpable. Neurologic: Gait normal. Reflexes normal and symmetric. Sensation grossly intact. Mood: Pleasant, good eye contact, engaged. ASSESSMENT/PLAN: 1. Wellness examination - ICD9: V70.0, ICD10: Z00.00 (primary diagnosis) - Counseled on healthy diet and regular exercise - Calcium intake with supplements or by diet of 1000 mg/day for under 50, 4902-9446 mg/day for 50+ - Colorectal cancer screening recommended - agrees to Colonoscopy - Mammogram ordered - exam recommended once yearly - Depression screening tool completed and reviewed with patient. Based on score and interview, patient is at risk for depression and recommended psychiatry referral and starting medication. - Follow up for annual exam in one year - COMP METABOLIC PANEL 2. Elevated blood pressure reading without diagnosis of hypertension - ICD9: 796.2, ICD10: R03.0 - Encouraged dietary sodium restriction/DASH diet - Recommended regular aerobic exercise. - Recommend home blood pressure monitoring, to bring results in on next visit - Encouraged avoidance of excessive alcohol intake - Discussed need and benefit for weight loss. - Follow up in 1 month for BP recheck. - Goal of BP <130/80 3. Anxiety with depression - ICD9: 300.4, ICD10: F41.8 - MDQ 9 - Start Zyprexa 5 mg at bedtime. May use hydroxyzine as needed for increased anxiety or panic attacks. - Medication education and instructions discussed. - OLANZAPINE 5 MG TABLET - CONSULT TO PSYCHIATRY - HYDROXYZINE HCL 25 MG TABLET 4. Seasonal allergies - ICD9: 477.9, ICD10: J30.2 - OLOPATADINE 0.2 % EYE DROPS 5. SOB (shortness of breath) - ICD9: 786.05, ICD10: R06.02 - Refill provided. - ALBUTEROL SULFATE HFA 90 MCG/ACTUATION AEROSOL INHALER 6. Women's annual routine gynecological examination - ICD9: V72.31, ICD10: Z01.419 - CONSULT TO GYNECOLOGY 7. Special screening for malignant neoplasms, colon - ICD9: V76.51, ICD10: Z12.11 - COLONOSCOPY SCREENING 8. Screening cholesterol level - ICD9: V77.91, ICD10: Z13.220 - LIPID PANEL BASIC 9. Screening for diabetes mellitus - ICD9: V77.1, ICD10: Z13.1 - HGB A1C Follow-up in 1 month or sooner as needed. Discussed treatment plan and patient voices understanding. Patient's questions answered appropriately. Medications and potential side effects were discussed and patient voices understanding. Mary Ellen Solano APRN.FUNERAL ARRANGER This note was partially generated using [employer] recognition system. Note was reviewed for accuracy. There may be minor misspellings or grammar miscues with Dragon voice recognition. [facility] OPEN ACCESS QUESTIONNAIRE 1. Are you currently having any new or unusual stomach/gastrointestinal issues at this time such as constipation, diarrhea, abdominal pain, rectal bleeding etc?No 2. Do you have any difficulty swallowing? No 3. Do you have any implanted devices such as a defibrillator, pacemaker, cardiac stents or deep brain stimulator? No 4. Do you take any Blood thinners such as Coumadin, Plavix, Xarelto, Eliquis, Brilinta or any other blood thinner? No 5. Do you have any new or past cardiac (heart) or pulmonary (lung) issues? No 6. Do you currently use any oxygen? No 7. Have you been hospitalized in the past 6 weeks? No 8. Have you had difficulty with anesthesia previously re: Difficult intubation? No Other difficulty or allergic reaction to anesthesia other than post op N/V? No 9. Are you on dialysis? No 10. Do you have any bleeding disorders such as hemophilia or Factor 5? No 11. Are you an Insulin Dependent Diabetic? No IF ANY OF THE TOP ELEVEN QUESTIONS ARE ANSWERED YES PLEASE SCHEDULE THE PATIENT FOR A CONSULT. N/A 12. Is the patient's BMI 40 or greater? No:Body mass index is 27.64 kg/m .. 13. Do you take any narcotics or anti-Anxiety medications? No 14. Do you use any illegal or recreational drugs including marijuana? Yes / Marijuana 15. Any alcohol use: No. 16. Have you been diagnosed with chronic liver disease such as hepatitis or cirrhosis? No 17. Do you have a seizure disorder? No 18. Do you have ulcerative colitis or Crohn's disease? No 19. Are you or could you be ? No 20. Any other important health information we should be made aware of prior to your colonoscopy? No To be completed by LIP: Did patient have MAC anesthesia with a previous endoscopy procedure? No Patient appropriate for Open Access Colonoscopy: Yes: appropriate for Open Access Procedure Checklist: Prior to closing the encounter: Complete questionnaire: Yes Confirm Prep order has been Ordered/Pended: Yes. Patient's procedure could be delayed if not given the script for the prep. Please ensure the prep is escripted to pharmacy or printed. Instructions for the prep will print upon filing or pending this smartset. Please send all open access questionnaires to [facility] Pool #[id number] documented in this encounter [facility] 05-13-2022 History of Presen t illness Narrative Radiology Service Progress Note PATIENT NAME: Melissa Randall DATE OF SERVICE: May 13, 2022 TIME: 8:43 AM PATIENT IDENTITY VERIFICATION COMPLETED USING TWO (2) IDENTIFIERS: Name and Date of confirmed by patient verbally. FALL SCREENING: Has the patient had 2 falls in the last year or 1 fall with injury or currently using an Ambulatory Assistive Device (Walker, Cane, Wheelchair, Crutches, etc.)? No PATIENT GENDER DATA: Female. status: : No status: NO. PATIENT RELEVANT IMPLANT DATA REVIEWED: Not Applicable RADIOLOGY DEPARTMENT: General X-ray: Exam(s) Completed: Chest X-Ray PERIPHERAL IV DATA: Not applicable SIGNED BY: RT Cristian(R) May 13, 2022 8:43 AM documented in this encounter [facility] 12-29-2020 History of Presen t illness Narrative Radiology Service Progress Note PATIENT NAME: Melissa Randall DATE OF SERVICE: December 29, 2020 TIME: 11:51 AM PATIENT IDENTITY VERIFICATION COMPLETED USING TWO (2) IDENTIFIERS: Name and Date of confirmed by patient verbally. FALL SCREENING: Has the patient had 2 falls in the last year or 1 fall with injury or currently using an Ambulatory Assistive Device (Walker, Cane, Wheelchair, Crutches, etc.)? No PATIENT GENDER DATA: Female. status: : No status: NO. PATIENT RELEVANT IMPLANT DATA REVIEWED: Yes RADIOLOGY DEPARTMENT: General X-ray: Exam(s) Completed: Lower Extremity X-Ray(s): Tibia Fibula, Right PERIPHERAL IV DATA: Not applicable SIGNED BY: RT Nellie December 29, 2020 11:51 AM documented in this encounter [facility] Evaluation note Diagnosis Encounter for screening mammogram for breast cancer [facility] Diagnosis Encounter for screening mammogram for breast cancer [facility] Diagnosis Wellness examination- Primary Elevated blood pressure reading without diagnosis of hypertension Anxiety with depression Seasonal allergies Allergic rhinitis, cause unspecified SOB (shortness of breath) Shortness of breath Women's annual routine gynecological examination Special screening for malignant neoplasms, colon Screening cholesterol level Screening for lipoid disorders Screening for diabetes mellitus [facility] Diagnosis Elevated LFTs- Primary Other abnormal blood chemistry [facility] [facility] Diagnosis Anxiety with depression [facility] Diagnosis Encounter for screening mammogram for breast cancer [facility] Diagnosis Acute cough [facility] Diagnosis Encounter for screening mammogram for breast cancer documented in this encounter [facility] for referral (narrative)* Diagnostic Procedure Only (Routine) - Pending Review Specialty Diagnoses / Procedures Referred By Ajay cain Referred To Contact [facility] Diagnoses Encounter for screening mammogram for breast cancer Procedures KATHRYN SCREENING SCREENING MAMMOGRAPHY BI 2-VIEW BREAST INC Serenity Griggs MD [address] [place] [address] [facility] [address] [place] [address] Referral ID Status Reason Start Date Expiration Date Visits Requested Visits Authorized [id number] Pending Review Auto-Generat ed Referral 01/11/2022 02/10/2023 1 [facility] Diagnostic Procedure Only (Routine) - Pending Review Specialty Diagnoses / Procedures Referred By Ajay cain Referred To Contact [facility] Diagnoses Encounter for screening mammogram for breast cancer Procedures KATHRYN SCREENING SCREENING MAMMOGRAPHY BI 2-VIEW BREAST INC Serenity Griggs MD [address] [place] [address] [facility] [address] [place] [address] Referral ID Status Reason Start Date Expiration Date Visits Requested Visits Authorized [id number] Pending Review Auto-Generat ed Referral 12/13/2022 01/12/2024 1 1 [facility] Diagnostic Procedure Only (Routine) - Pending Review Specialty Diagnoses / Procedures Referred By Ajay cain Referred To Contact [facility] Diagnoses Encounter for screening mammogram for breast cancer Procedures KATHRYN SCREENING SCREENING MAMMOGRAPHY BI 2-VIEW BREAST INC CAD Serenity Boone MD [address] [place] [address] [facility] [address] [place] [address] Referral ID Status Reason Start Date Expiration Date Visits Requested Visits Authorized [id number] Pending Review Auto-Generat ed Referral 11/14/2023 12/13/2024 1 1 [facility] Summary Purpose Family History No Family History Records FoundNo Family History Records FoundNo Family History Records FoundNo Family History Records Found Advance Directives No Advanced Directives Records FoundDocuments on File Type Date Recorded Patient Budget Consultant Expl anation Advance Directives and Living Will Power of Medical Superintendent Instructions * Patient Instructions* Nate Min MD - 01/19/2019 9:37 AM EDT Follow-up as needed Sinusitis: Care Instructions Your Care Instructions Sinusitis is an infection of the lining of the sinus cavities in your head. Sinusitis often followsa cold. It causes pain and pressure in your head and face. In most cases, sinusitis gets better on its own in 1 to 2 weeks. But some mild symptoms may last for several weeks. Sometimes antibiotics are needed. Follow-up care is a garcía part of your treatment and safety. Be sure to make and go to all appointments, and call your doctor if you are having problems. It's also a good idea to know your test resultsand keep a list of the medicines you take. How can you care for yourself at home? Take an bofz-cmk-xtteamb pain medicine, such as acetaminophen (Tylenol), ibuprofen (Advil, Motrin),or naproxen (Aleve). Read and follow all instructions on the label. If the doctor prescribed antibiotics, take them as directed. Do not stop taking them just because you feel better. You need to take the full course of antibiotics. Be careful when taking zjgt-jrw-gbrkbfa cold or flu medicines and Tylenol at the same time. Many ofthese medicines have acetaminophen, which is Tylenol. Read the labels to make sure that you are nottaking more than the recommended dose. Too much acetaminophen (Tylenol) can be harmful. Breathe warm, moist air from a steamy shower, a hot bath, or a sink filled with hot water. Avoid cold, dry air. Using a humidifier in your home may help. Follow the directions for cleaning the machine. Use saline (saltwater) nasal washes to help keep your nasal passages open and wash out mucus and bacteria. You can buy saline nose drops at a grocery store or drugstore. Or you can make your own at home by adding 1 teaspoon of salt and 1 teaspoon of baking soda to 2 cups of distilled water. If you make your own, fill a bulb syringe with the solution, insert the tip into your nostril, and squeeze gently. Blow your nose. Put a hot, wet towel or a warm gel pack on your face 3 or 4 times a day for 5 to 10 minutes each time. Try a decongestant nasal spray like oxymetazoline (Afrin). Do not use it for more than 3 days in a row. Using it for more than 3 days can make your congestion worse. When should you call for help? Call your doctor now or seek immediate medical care if: You have new or worse swelling or redness in your face or around your eyes. You have a new or higher fever. Watch closely for changes in your health, and be sure to contact your doctor if: You have new or worse facial pain. The mucus from your nose becomes thicker (like pus) or has new blood in it. You are not getting better as expected. Where can you learn more? Log into your personal health record on [email or web address] and enter I933 in the "Education" box to learn more about "Sinusitis: Care Instructions." Current as of: June 30, 2018 Content Version: 12.0 6532-1133 Face to Face Live. Care instructions adapted under license by your healthcare professional. If you have questions about a medical condition or this instruction, always ask your healthcare professional. [employer] disclaims any warranty or liability for your use of this information. documented in this encounter History of Present Illness * Nate Min MD - 01/19/2019 9:23 AM EDT Subjective History was provided by the patient. Melissa Randall is a 44 y.o. female who presents for evaluation of symptoms of a URI, possible sinusitis. She went to her provider 4 weeks ago after having quick onset of congestion, states she received amoxicillin though per charting appears like it was Augmentin, states she had a partial response and recently has been returning with worse symptoms. Luong: Maxillary toothache? NO. Purulent nasal secretion? NO. Colored nasal discharge? YES. Poor response to decongestants? YES. Abnormal sinus transillumination? YES. "Double worsening"? YES. >7-10 days of symptoms? YES. 2 positive and over 7-10 days? YES. Clinical picture? YES. Task force: Major: Nasal obstruction? YES. Post-nasal drip? YES. Hyposmia? YES. Facial pain or pressure? YES. Fever? NO. Minor: Headaches? YES. Chronic nature? YES. Halitosis? NO. Fatigue? YES. Dental pain? NO. Cough? YES. Ear pain? NO. 1 major and 2 minor? YES. Nasal purulence: NO. The following portions of the patient's history were reviewed and updated as appropriate: allergies, current medications, past family history, past medical history, past social history, past surgicalhistory and problem list. Current Outpatient Medications Medication Sig Dispense Refill doxycycline hyclate (VIBRA-TABS) 100 MG tablet Take 1 (one) tablet (100 mg total) by mouth 2 (two) times a day for 10 days . 20 tablet 0 fluticasone propionate (FLONASE) 50 mcg/actuation nasal spray Instill 2 (two) sprays into each nostril daily . 16 g 0 promethazine-dextromethorphan (PROMETHAZINE-DM) 6.25-15 mg/5 mL syrup Take 5 mL by mouth at bedtimeas needed for cough . 118 mL 0 utabromjxjzjqud-DR-tgraVOQqhlg 60-15-400 mg Tab Take 1 (one) tablet by mouth 2 (two) times a day asneeded . 14 tablet 0 No current facility-administered medications for this visit. History reviewed. No pertinent past medical history. History reviewed. No pertinent surgical history. There is no problem list on file for this patient. Review of Systems Pertinent items are noted in HPI. Objective BP 128/89 (BP Location: Right arm, Patient Position: Sitting, BP Cuff Size: Adult) Pulse 73 Temp 96.9 F (36.1 C) (Tympanic) Resp 16 Wt 57.2 kg (126 lb) SpO2 98% General appearance: alert, appears stated age and cooperative Head: Normocephalic, without obvious abnormality, atraumatic, sinuses tender to percussion Eyes: conjunctivae/corneas clear. PERRL, EOM's intact. Fundi benign. Ears: normal TM's and external ear canals both ears Nose: green discharge, moderate congestion, turbinates swollen Throat: lips, mucosa, and tongue normal; teeth and gums normal Neck: no adenopathy and supple, symmetrical, trachea midline Lungs: clear to auscultation bilaterally Heart: regular rate and rhythm, S1, S2 normal, no murmur, click, rub or gallop Assessment: sinusitis Diagnoses and all orders for this visit: Rhinosinusitis - doxycycline hyclate (VIBRA-TABS) 100 MG tablet; Take 1 (one) tablet (100 mg total) by mouth 2 (two) times a day for 10 days . - atfdjhgyalqmkbp-QG-adcgNMZlumg 60-15-400 mg Tab; Take 1 (one) tablet by mouth 2 (two) times a dayas needed . - promethazine-dextromethorphan (PROMETHAZINE-DM) 6.25-15 mg/5 mL syrup; Take 5 mL by mouth at bedtime as needed for cough . Other orders - fluticasone propionate (FLONASE) 50 mcg/actuation nasal spray; Instill 2 (two) sprays into each nostril daily . Plan: Discussed the diagnosis and treatment of sinusitis. Suggested symptomatic OTC remedies. Nasal saline spray for congestion. Follow up as needed. Written instructions given and scanned as in chart patient and/or guardian are aware. documented in this encounter Assessments Diagnosis Rhinosinusitis- Primary Reason for Referral Specialty Diagnoses / Procedures Referred By Rainerac t Referred To Contact Diagnoses Anxiety with depression Procedures CONSULT TO PSYCHIATRY OFFICE/OUTPATIENT [facility] MDM 60-74 MINUTES Mary Ellen Solano APRN.FUNERAL ARRANGER [address] [place] [address] Referral ID Status Reason Start Date Expiration Date Visits Requested Visits Authorized [id number] Pending Review PCP Requested Referral 12/25/2022 12/25/2023 1 1 Specialty Diagnoses / Procedures Referred By Rainerac t Referred To Contact [facility] Diagnoses Special screening for malignant neoplasms, colon Procedures COLONOSCOPY SCREENING COLONOSCOPY FLX DX W/COLLJ SPEC WHEN PFRMD Mary Ellen Solano APRN.FUNERAL ARRANGER [address] [place] [address] [facility] [address] [place] [address] Referral ID Status Reason Start Date Expiration Date Visits Requested Visits Authorized [id number] Authorized Auto-Generat ed Referral 12/25/2022 12/26/2023 1 1 Specialty Diagnoses / Procedures Referred By Contac t Referred To Contact Gynecology Diagnoses Women's annual routine gynecological examination Procedures CONSULT TO GYNECOLOGY OFFICE/OUTPATIENT [facility] 60-74 MINUTES Mary Ellen Solano APRN.FUNERAL ARRANGER [address] [place] [address] Referral ID Status Reason Start Date Expiration Date Visits Requested Visits Authorized [id number] Authorized PCP Requested Referral Auto-Generate d Referral 12/25/2022 12/25/2023 1 1 Specialty Diagnoses / Procedures Referred By Rainerac t Referred To Contact Diagnoses SOB (shortness of breath) Mary Ellen Solano APRN.FUNERAL ARRANGER [address] [place] [address] Referral ID Status Reason Start Date Expiration Date Visits Re quested Visits Authorized [id number] Closed 1 1 Additional Source Comments INFORMATION SOURCE (unrecogn ized section and content) DATE [facility]ATED [facility] DATE CREATED AUTHOR AUTHOR'S ORGANIZ ATION 11/13/2019 [facility] DATE CREATED AUTHOR AUTHOR'S ORGANIZ ATION 10/26/2021 [facility] DATE CREATED AUTHOR AUTHOR'S ORGANIZ ATION 11/23/2024 [facility] Reason for Visit (unrecogniz ed section and content) Reason Comments URI cough, slight throat discomfort, headaches and pressure in sinuses. Given amoxicillin 3 weeks ago. Reason Comments Wellness Reason Comments Results Labs Reason Comments Appointment Reason Onset Date Comments Refill Request 01/22/2023 needs today Reason Comments cancelled request Source Comments (unrecognize d section and content) In the event this informatio n is protected by the Federal Confidentiality of Alcohol and Drug Abuse Patient Records regulations: The Federal rules restrict any use of the information to criminally investigate or prosecute any alcohol or drug abuse patient.[facility] the event this information is protected by the Federal Confidentiality of Alcohol and Drug Abuse Patient Records regulations: The Federal rules restrict any use of the information to criminally investigate or prosecute any alcohol or drug abuse patient.[facility] the event this information is protected by the Federal Confidentiality of Alcohol and Drug Abuse Patient Records regulations: The Federal rules restrict any use of the information to criminally investigate or prosecute any alcohol or drug abuse patient.[facility] the event this information is protected by the Federal Confidentiality of Alcohol and Drug Abuse Patient Records regulations: The Federal rules restrict any use of the information to criminally investigate or prosecute any alcohol or drug abuse patient.[facility] the event this information is protected by the Federal Confidentiality of Alcohol and Drug Abuse Patient Records regulations: The Federal rules restrict any use of the information to criminally investigate or prosecute any alcohol or drug abuse patient.[facility] the event this information is protected by the Federal Confidentiality of Alcohol and Drug Abuse Patient Records regulations: The Federal rules restrict any use of the information to criminally investigate or prosecute any alcohol or drug abuse patient.[facility] the event this information is protected by the Federal Confidentiality of Alcohol and Drug Abuse Patient Records regulations: The Federal rules restrict any use of the information to criminally investigate or prosecute any alcohol or drug abuse patient.[facility] the event this information is protected by the Federal Confidentiality of Alcohol and Drug Abuse Patient Records regulations: The Federal rules restrict any use of the information to criminally investigate or prosecute any alcohol or drug abuse patient.[facility] the event this information is protected by the Federal Confidentiality of Alcohol and Drug Abuse Patient Records regulations: The Federal rules restrict any use of the information to criminally investigate or prosecute any alcohol or drug abuse patient.[facility] the event this information is protected by the Federal Confidentiality of Alcohol and Drug Abuse Patient Records regulations: The Federal rules restrict any use of the information to criminally investigate or prosecute any alcohol or drug abuse patient.[facility] the event this information is protected by the Federal Confidentiality of Alcohol and Drug Abuse Patient Records regulations: The Federal rules restrict any use of the information to criminally investigate or prosecute any alcohol or drug abuse patient.[facility] Care Teams (unrecognized sec tion and content) Senior Cytotechnologist Relationship Specialty Start Date End Date Serenity Boone MD [address] [place] [address] PCP - General Family Practice 01/14/21 Senior Cytotechnologist Relationship Specialty Start Date End Date Serenity Boone MD [address] [place] [address] PCP - General Family Medicine 01/14/21 Senior Cytotechnologist Relationship Specialty Start Date End Date Serenity Boone MD [address] [place] [address] PCP - General Family Medicine 01/14/21 Senior Cytotechnologist Relationship Specialty Start Date End Date Serenity Boone MD [address] [place] [address] PCP - General Family Medicine 01/14/21 Senior Cytotechnologist Relationship Specialty Start Date End Date Serenity Boone MD [address] [place] [address] PCP - General Family Medicine 01/14/21 Senior Cytotechnologist Relationship Specialty Start Date End Date Serenity Boone MD [address] [place] [address] PCP - General Family Medicine 01/14/21 Senior Cytotechnologist Relationship Specialty Start Date End Date Serenity Boone MD [address] [place] [address] PCP - General Family Medicine 01/14/21 Senior Cytotechnologist Relationship Specialty Start Date End Date Serenity Boone MD [address] [place], [place] [address] PCP - General Family Medicine 01/14/21 Senior Cytotechnologist Relationship Specialty Start Date End Date Shoshana Barrios DO [address] [place] [address] [place] [address] [id number] PCP - General Family Medicine 02/23/16 01/13/21 Senior Cytotechnologist Relationship Specialty Start Date End Date Serenity Boone MD [address] [place], [place] [address] PCP - General Family Medicine 01/14/21 Mary Ellen Solano APRN.FUNERAL ARRANGER [address] [place], [place] [address] [employer] [facility] 08/17/24 Fuad Madden APRN.FUNERAL ARRANGER [address] [place], [place] [id number] [facility] 08/26/24 FOR RECORDS PERTAINING TO PATIENTS WHO ARE OR HAVE BEEN ENROLLED IN A CHEMICAL DEPENDENCY/SUBSTANCEABUSE PROGRAM, SOME INFORMATION MAY BE OMITTED. This clinical summary was aggregated from multiple sources. Caution should be exercised in using it in the provision of clinical care. This summary normalizes information from multiple sources, and as a consequence, information in this document may materially change the coding, format and clinical context of patient data. In addition, data may be omitted in some cases. CLINICAL DECISIONS SHOULD BE BASED ON THE PRIMARY CLINICAL RECORDS. [employer] provides no warranty or guarantee of the accuracy or completeness of information in this document.
--- NOTE | 2025-06-05 18:56 | HP.PCM.HOS_ITS ---
HPI - General General Date of Admission: 06/05/25 Date of Service: 06/05/25 Chief Complaint: Nausea and vomiting HPI Narrative MELISSA RANDALL, is a 50-year-old female with no significant past medical history presented to [facility] ED 06/05/2025 for nausea and vomiting for 4 days with some epigastric pain and poor p.o. intake. In the ED patient afebrile, heart rate initially 123 with a blood pressure 150/77 however heart rate trended down to 90s, patient 99% on room air. CBC with white count 15.5 and hemoglobin 15.6. UA with ketones and hyaline cast and fine granular casts but no evidence of infection. CMP demonstrated a sodium of 128, bicarb of 11.8, gap of 34, BUN 33 with creatinine 1.32, glucose 261, total bili 3.94, AST 124, ALT 87, alk phos 234. Direct bili 2.47, lipase 1600. Chest x-ray no acute process. CT abdomen pelvis with hepatosplenomegaly but no acute abnormalities. Gallbladder ultrasound also no evidence of acute cholecystitis. GI contacted due to patient's symptoms and liver function tests and it was recommended the patient have MRCP and that autoimmune hepatitis labs will be ordered. Hospitalist contacted for admission for further workup and management. Patient evaluated bedside, reports over the past 4 days or so she has had vague achy pain in her epigastric region with nausea and vomiting that has been persistent and she has not been able to keep anything down, no diarrhea in fact has not had a bowel movement in several days, notes chills but has not measured a temperature, has a bit of a headache. Denies any lower abdominal pain, will feel winded a little bit easier and occasionally will have a dry cough but not pronounced or continuous. She denies anything like this happening to her before, is not taking any [id number] medications aside from occasional ibuprofen as needed for headaches but reports taking it infrequently. No illicit substance use aside from occasional marijuana use, drinks alcohol 2-3 times a week roughly 3 drinks at a time and denies any recent binging. [facility] Medical History (Updated 06/05/25 @ 19:[address] Anne Rios MD) Abnormal bruising Difficulty balancing when standing Encounter for screening for COVID-19 Knee pain Limb weakness SOB (shortness of breath) Home Medications Medication Instructions Recorded Last Taken Type NK 06/05/25 Unknown History Allergy/AdvReac Type Severity Reaction Status Date / Time No Known Allergies Allergy Verified 06/05/25 11:25 Social History Smoking Status: Former smoker ROS ROS Narrative General: Possibly some chills with no measured fever HENT: Little bit of a headache, denies stuffy nose, some sore throat associated with coughing EYES: Denies changes in vision Resp: Occasional dry cough, also has felt more winded earlier Cardiac: Denies chest pain at this time GI: Has discomfort in the epigastric region and under both sides of her rib cage, some constipation, frequent nausea and vomiting with poor p.o. intake : Denies changes in urination Extremity: Denies swelling MSK: Denies weakness Neuro: Denies any numbness/tingling Heme: Denies any bleeding or bruising Skin: Denies rashes, does note that a couple times her fingers and toes seem to be much redder than the rest of her and it would last from minutes and then completely go away Psychiatric: No complaints voiced Vital Signs Vital Signs Vital Signs: 06/05/25 11:23 06/05/25 11:39 06/05/25 11:45 Temperature 97 F L Temperature Source Temporal Pulse Rate 123 H 115 H 118 H Respiratory Rate 18 19 H 23 H Blood Pressure 150/107 H Blood Pressure Mean 121 Pulse Ox 99 99 Oxygen Delivery Method Room Air 06/05/25 12:00 06/05/25 12:15 06/05/25 12:30 Temperature Temperature Source Pulse Rate 114 H 115 H 116 H Respiratory Rate 19 H 19 H 29 H Blood Pressure Blood Pressure Mean Pulse Ox 98 98 97 Oxygen Delivery Method 06/05/25 12:55 06/05/25 13:00 06/05/25 13:15 Temperature Temperature Source Pulse Rate 116 H 109 H 106 H Respiratory Rate 26 H 21 H 19 H Blood Pressure 137/95 H 144/101 H 143/109 H Blood Pressure Mean 108 115 119 Pulse Ox 96 99 Oxygen Delivery Method 06/05/25 13:30 06/05/25 13:33 06/05/25 13:45 Temperature Temperature Source Pulse Rate 102 H 95 Respiratory Rate 22 H 19 H Blood Pressure 165/103 H 148/105 H Blood Pressure Mean 119 120 Pulse Ox 99 98 Oxygen Delivery Method 06/05/25 14:00 06/05/25 14:15 06/05/25 14:30 Temperature Temperature Source Pulse Rate 94 96 Respiratory Rate 18 18 22 H Blood Pressure 152/105 H 147/110 H Blood Pressure Mean 121 120 Pulse Ox 99 99 Oxygen Delivery Method 06/05/25 14:45 06/05/25 15:00 06/05/25 15:16 Temperature Temperature Source Pulse Rate Respiratory Rate Blood Pressure Blood Pressure Mean Pulse Ox 99 98 99 Oxygen Delivery Method 06/05/25 15:30 06/05/25 15:36 06/05/25 15:45 Temperature Temperature Source Pulse Rate 99 100 Respiratory Rate 13 17 16 Blood Pressure 134/93 H Blood Pressure Mean 106 Pulse Ox 99 98 98 Oxygen Delivery Method 06/05/25 16:00 06/05/25 16:00 06/05/25 16:15 Temperature Temperature Source Pulse Rate 109 H 102 H Respiratory Rate 23 H 18 Blood Pressure 130/99 H 130/99 H Blood Pressure Mean 109 109 Pulse Ox 97 99 Oxygen Delivery Method 06/05/25 16:30 06/05/25 16:30 06/05/25 16:45 Temperature Temperature Source Pulse Rate 99 Respiratory Rate 18 Blood Pressure 127/85 H 127/85 H Blood Pressure Mean 98 98 Pulse Ox 98 98 Oxygen Delivery Method 06/05/25 17:00 06/05/25 17:15 06/05/25 18:10 Temperature 98.2 F Temperature Source Pulse Rate 106 H 94 94 Respiratory Rate 26 H 21 H 21 H Blood Pressure 140/101 H 136/93 H Blood Pressure Mean 112 107 Pulse Ox 98 98 98 Oxygen Delivery Method Weight Weight: 55.2 kg Body Mass Index (BMI) 20.9 Physical Exam Narrative General: Alert, oriented, does not appear to be overtly distressed HEENT: Atraumatic, normocephalic Eyes: normal conjunctiva, extraocular movements grossly intact Neck: Supple Respiratory: Very slight tachypnea but clear to auscultation bilaterally Cardiovascular: Regular rate and rhythm GI: Soft, tender to palpation epigastric region without rebound, guarding, rigidity, no lower abdominal pain Extremities: No edema Musculoskeletal: Moving all extremities Neuro: No overt focal neurological deficits Skin: No rashes appreciated Psych: Cooperative Results Lab / Micro Data 06/05/25 11:45 06/05/25 11:45 Labs: Laboratory Results - last 24 hr 06/05/25 11:45: WBC 15.5 H, RBC 4.67, Hgb 15.6 H, Hct 43.9, MCV 94.0, MCH 33.4 H , MCHC 35.5, RDW Std Deviation 42.3, RDW Coeff of Parviz 12.2, Plt Count 194, MPV 10.4, Immature Gran % (Auto) 0.700, Neut % (Auto) 91.3 H, Lymph % (Auto) 2.3 L, [place] % (Auto) 5.4, Eos % (Auto) 0.0, Baso % (Auto) 0.3, Absolute Neuts (auto) 14.1 H, Absolute Lymphs (auto) 0.36 L, Nucleated RBC % 0, Sodium 128 L, Potassium 3.7, Chloride 82 L, Carbon Dioxide 11.8 L, Anion Gap 34 H, BUN 33 H, C reatinine 1.32 H, Estim Creat Clear Calc 41.24 L, Est GFR (MDRD) Non-Af 49 L, B UN/Creatinine Ratio 24.6 H, Glucose 261 H, Calcium 9.9, Total Bilirubin 3.94 H, Direct Bilirubin 2.47 H, AST 124 H, ALT 87 H, Alkaline Phosphatase 234 H, Total Protein 8.8 H, Albumin 5.0, Globulin 3.8, Albumin/Globulin Ratio 1.3, Lipase 1645 H 06/05/25 12:59: Urine Color Yellow, Urine Clarity Sl. Cloudy, Urine pH 6.0, Ur Specific [place] 1.015, Urine Protein 100 H, Urine Glucose (UA) Normal, Urine Ketones 150 A*, Urine Occult Blood 150 H, Urine Nitrite Negative, Urine Bilirubin 3 H, Urine Urobilinogen 4 H, Ur Leukocyte Esterase 25 H, Urine RBC 5- 10 SEEN, Urine WBC 0-5 SEEN, Ur Squamous Epith Cells 0-5 SEEN, Urine Bacteria 0 SEEN, Hyaline Casts 50-100 SEEN, Fine Granular Casts 10-25 SEEN, Urine Mucus 0 SEEN 06/05/25 17:55: ESR 26, JOHN-1 Antibody TNP, Sm (Gauthier) Antibody TNP, EMERGENCY PLANNER Antibody TNP, Scl-70 Scleroderma Ab TNP, Antichromatin Antibodies TNP, Centromere B Antibody TNP Micro: Microbiology 06/05/25 12:59 Mucosa - Nose SARS-CoV-2, Influenza & RSV (PCR) - Final Imaging Radiology Impression Chest X-Ray 06/05/25 13:25 IMPRESSION: Lungs appear clear throughout. No pleural effusion or pneumothorax is noted. The cardiomediastinal silhouette is within the normal range. Mild thoracic spine degenerative changes are noted. No acute osseous change is seen. No evidence of acute cardiopulmonary disease. Reading Location: [id number] Abdomen/Pelvis CT 06/05/25 15:20 IMPRESSION: No acute abdominopelvic abnormalities. Hepatosplenomegaly. Reading Location: [facility] Gallbladder Ultrasound 06/05/25 15:55 IMPRESSION: No sonographic evidence for acute cholecystitis. No cholelithiasis. Hepatomegaly and hepatic steatosis. Reading Location: [id number] Assessment & Plan Assessment/Plan (1) Acute pancreatitis: (2) Abnormal liver function test: (3) Hyperglycemia: (4) High anion gap metabolic acidosis: PLAN: Plan #Acute pancreatitis with elevated liver function tests -Patient presents with epigastric pain and a lipase of 1600 with persistent nausea and vomiting and meets diagnostic criteria for acute pancreatitis -Patient has had minimal p.o. intake over the past 4 days -IV fluids -I’s and O’s -MRCP ordered - GI consulted - Autoimmune hepatitis panel ordered per GI # High anion gap metabolic acidosis - DKA versus starvation ketoacidosis - Glucose in the ED 261, patient has a family history of diabetes but no personal history of diabetes - In the ED she was found to have a bicarb of 11.8 and an anion gap of 34 with normal lactic acid -Urine ketones greater than 150 -Serum beta hydroxybutyrate 4.4 -Admit to intensive care unit -N.p.o. -Insulin drip started with D5 half-normal saline as patient is barely above the 250 threshold and there is suspicion that this is starvation ketoacidosis given her lack of p.o. intake for 4 days however given her elevated glucose on arrival cannot rule out DKA -Aggressive fluid hydration -Glucose checks and DKA protocol -BMP every 4H -Replace electrolytes per protocol -I's and O's -A1c ordered -Given there is concern for starvation ketoacidosis will also give IV thiamine # Elevated creatinine - BUN of 33 and creatinine 1.32 however no previous baseline available for comparison - IV fluids as above - Repeat in the a.m., can consider further workup if any worsening of kidney function # Hyponatremia - Suspect due to dehydration, patient receiving IV fluids - Will order urine studies and serum osmolality - Check TSH #Elevated glucose -No hx of diabetes -Glucose 261 in ED -Check A1c - Management as above #DVT ppx: scds Anne Rios MD Time spent in the patient's overall evaluation, decision-making process, review of diagnostic data, adjustment of management, discussion with other providers, nursing and ancillary staff involved in patient's care documentation, 85 Minutes Charges/Coding Visit Charges Inpatient E&M: 75381 Init Hosp L3
[2025-06-05 19:01] LABS: BETA-HYDROXYBUTYRATE 4.4 mmol/L (0.0-0.3)
--- NOTE | 2025-06-05 19:19 | CPS ---
called lab to notify them of VBG. they will be over within the hour. charger tester aware.
[2025-06-05 19:48] LABS: Ferritin 3038 ng/mL (22-378); HIV Nonreactive (Nonreactive)
[2025-06-05 20:11] LABS: CRP 19.90 mg/L (0.0-3.0); LDH 203 U/L (84-246)
--- NOTE | 2025-06-05 20:24 | PCM.HOSP.N ---
Hospitalist Note Initially was called by ED to except this patient for further GI workup for elevated liver function tests, requested lactic acid, VBG, and beta hydroxybutyrate given the high anion gap with a low bicarb, evaluated patient at bedside and given her vital stability and overall clinical status did seem that she was still reasonable for PCU, unfortunately those other results came back after she was already transferred up to the floor. Lactic was normal however her beta hydroxybutyrate was elevated, given her elevated glucose it is very difficult to discern if this is DKA, no known history of diabetes however does have elevated glucose which could be from stress versus underlying diabetes not yet diagnosed, or if this is starvation ketoacidosis given she has not really been able to eat or drink in 4 days. Very difficult to delineate in this particular instance, either way given her significant gap and low bicarb do feel she needs to be on an insulin drip which will necessitate her going to ICU even though her overall clinical status has not changed. Given her glucose is 260 which is very close to the 250 cutoff and patient is insulin naïve we will start her on the D5 with the insulin to close the gap without making her hypoglycemic, DKA orders entered, discussed all of this with the patient and she verbalized understanding. Discussed with warehouse distribution associate and patient will be transferred up to the ICU specifically for the monitoring necessary for the insulin drip.
[2025-06-05] MEDS: Thiamine Hydrochloride 200 MG in 0.9% Normal Saline (50mL Bag) 50 ML IV (20:31)
[2025-06-05 20:55] LABS: Osmolality, Serum 301 mOsm/KG (275-295)
[2025-06-05] MEDS: Senna/Docusate Sodium 1 Tablet 2 TABLET PO (21:19)
[2025-06-05] MEDS: 0.9% Saline Lock 10 ML Syringe IV (21:22)
[2025-06-05] MEDS: Dext 5%-0.45% NS 1,000 ML 250 ML IV (21:24)
[2025-06-05 21:28] LABS: SITE Not entered; VBG BASE EXCESS -3 mmol/L (-1.0-3.5); VBG PO2 44 mmHg (25-40); VBG SO2 84 % (50-70); VBG TCO2 21 mmol/L (23-33)
[2025-06-05] MEDS: Insulin Lispro 100 UNIT in 0.9% Normal Saline (100mL Bag) 99 ML CONT INF (21:43)
[2025-06-05 22:14] LABS: Anion Gap 22 (5-15); Carbon Dioxide 18.2 mmol/L (21.0-32.0); Chloride 94 mmol/L (98-108); Magnesium 2.1 mg/dL (1.5-2.2); Potassium 3.6 mmol/L (3.3-5.1)
[2025-06-05 22:41] LABS: Creatinine, Urine (random) 66.20 mg/dL (28.00-217.00)
[2025-06-05] MEDS: Potassium Chloride 10mEq/100mL 10 MEQ/100 ML IV.SOLN. 100 MEQ IV BOLUS ×2 (22:48→23:50)
[2025-06-05 22:51] LABS: Osmolality, Urine 785 mOsm/KG
--- NOTE | 2025-06-05 23:24 | PCM.HOSP.N ---
Sepsis Attestation Sepsis Alert: Yes Sepsis Attestation: Sepsis Ruled Out Date exam was performed: 06/05/25 Time exam was performed: 23:00 Possible Source of Sepsis: Unknown Sepsis Organ Dysfunction Criteria Present: Total Bilirubin > 2 mg/dl Supportive Findings: Notified by [facility] staff of pt triggering sepsis per documentation for HR>90, WBC>12,000, and organ dysfunction d/t bilirubin >2. UA negative for bacteria, lactic negative at 1.5. I feel that the elevated WBCs 15.5, Tbili 3.94, and HR 92-103, are all due to the acute pancreatitis without obvious source of infection. BP has been stable running 130-140/90s. Bld cx and sepsis fluid resuscitation are not necessary.
[2025-06-06] VITALS (17 sets, daily range): BP systolic 119–143; BP diastolic 78–101; PULSE 73–110; RESP 14–20; TEMP 36.6–37.1; O2SAT 93–99; BMI 21.4
[2025-06-06] MEDS: Potassium Chloride 10mEq/100mL 10 MEQ/100 ML IV.SOLN. 100 MEQ IV BOLUS ×7 (00:53→11:31)
[2025-06-06] MEDS: Dext 5%-0.45% NS 1,000 ML 250 ML IV ×2 (01:33→05:43)
[2025-06-06 02:02] LABS: Anion Gap 12 (5-15); Carbon Dioxide 24.9 mmol/L (21.0-32.0); Chloride 96 mmol/L (98-108); Magnesium 2.0 mg/dL (1.5-2.2); Potassium 3.7 mmol/L (3.3-5.1)
[2025-06-06] MEDS: Sodium Phosphate/Na Biphos 21 MMOL in 0.9% Normal Saline (250mL Bag) 250 ML 62.5 MMOL IV (02:31)
--- NOTE | 2025-06-06 03:08 | NURSING ---
Patient's mother called in for an update while this RN was in the room with the patient. Patient gave permission for her mom to be updated on her status/plan of care. While giving an update to her, pt's mother expressed concerns that Irma drinks alcohol. She also said that she used to have epilepsy when she was younger. This concern relayed to ALANNAH Christine, and prophylactic CIWAs and PRN Ativan ordered.
[2025-06-06] MEDS: 0.9% Saline Lock 10 ML Syringe IV ×4 (06:19→21:40)
[2025-06-06 06:28] LABS: Hematocrit 33.3 % (37-47); Hemoglobin 11.7 g/dL (12.0-15.0); Immature Granulocytes Count 0.040 X10^3/uL (0.0-0.0); Mean Corp Hgb Conc 35.1 g/dL (32-36); Mean Corpuscular Volume 94.6 fL (81-99); Mean Platelet Vol. 10.5 fl (6.2-12.0); NRBC Flagged by Analyzer 0 % (0-5); Platelet Count 103 K/mm3 (150-450); RBC Distribution Width CV 12.3 % (11.6-14.6); RBC Distribution Width SD 42.9 fl (35.1-43.9); Red Blood Count 3.52 M/mm3 (4.2-5.4); White Blood Count 9.1 K/mm3 (4.4-11.0)
[2025-06-06 06:59] LABS: Magnesium 1.8 mg/dL (1.5-2.2)
[2025-06-06 07:08] LABS: AST(SGOT) 90 U/L (<=31); Alanine Aminotransfer ALT/SGPT 53 U/L (<=34); Albumin, Serum 3.7 g/dL (3.5-5.0); Alkaline Phosphatase 166 U/L (35-104); Anion Gap 12 (5-15); BUN 11 mg/dL (4-19); BUN/Creat Ratio 18.7 RATIO (10-20); Calcium,Total 8.8 mg/dL (7.6-11.0); Carbon Dioxide 23.1 mmol/L (21.0-32.0); Chloride 100 mmol/L (98-108); Estimated Creatinine Clearance 94.71 ml/min (50-250); Globulin 2.8 g/dL (2.2-4.2); Glucose 122 mg/dL (70-99); Potassium 3.7 mmol/L (3.3-5.1)
--- NOTE | 2025-06-06 07:19 | PN.HOSP_ITS ---
Reason for Visit Chief Complaint: Nausea and vomiting Objective Data Objective Data Vital Signs: Vital Signs Temp Pulse Resp BP Pulse Ox O2 Del Method 98.1 F 96 17 133/89 H 97 Room Air 06/06/25 04:00 06/06/25 06:00 06/06/25 06:00 06/06/25 06:00 06/06/25 06:00 06/06/25 06:00 Oxygen Delivery Method Room Air Weight: 125 lb 3.561 oz Body Mass Index (BMI) 21.4 Intake & Output: Intake and Output for Last 24 Hours 06/04/25 06/05/25 06/06/25 23:59 23:59 23:59 Intake Total 2184.32 / 2184.32 2763.51 / 2763.51 Output Total 150 / 150 830 / 830 Balance 2034.32 / 2034.32 1933.51 / 1933.51 Lab / Micro Data 06/06/25 06:15 06/06/25 06:15 Labs: Laboratory Results - last 24 hr 06/05/25 11:45: WBC 15.5 H, RBC 4.67, Hgb 15.6 H, Hct 43.9, MCV 94.0, MCH 33.4 H , MCHC 35.5, RDW Std Deviation 42.3, RDW Coeff of Parviz 12.2, Plt Count 194, MPV 10.4, Immature Gran % (Auto) 0.700, Neut % (Auto) 91.3 H, Lymph % (Auto) 2.3 L, [place] % (Auto) 5.4, Eos % (Auto) 0.0, Baso % (Auto) 0.3, Absolute Neuts (auto) 14.1 H, Absolute Lymphs (auto) 0.36 L, Nucleated RBC % 0, Sodium 128 L, Potassium 3.7, Chloride 82 L, Carbon Dioxide 11.8 L, Anion Gap 34 H, BUN 33 H, C reatinine 1.32 H, Estim Creat Clear Calc 41.24 L, Est GFR (MDRD) Non-Af 49 L, B UN/Creatinine Ratio 24.6 H, Glucose 261 H, Hemoglobin A1c 5.4, Calcium 9.9, T otal Bilirubin 3.94 H, Direct Bilirubin 2.47 H, AST 124 H, ALT 87 H, Alkaline Phosphatase 234 H, Total Protein 8.8 H, Albumin 5.0, Globulin 3.8, Albumin/Globulin Ratio 1.3, Lipase 1645 H 06/05/25 12:59: Urine Color Yellow, Urine Clarity Sl. Cloudy, Urine pH 6.0, Ur Specific [place] 1.015, Urine Protein 100 H, Urine Glucose (UA) Normal, Urine Ketones 150 A*, Urine Occult Blood 150 H, Urine Nitrite Negative, Urine Bilirubin 3 H, Urine Urobilinogen 4 H, Ur Leukocyte Esterase 25 H, Urine RBC 5- 10 SEEN, Urine WBC 0-5 SEEN, Ur Squamous Epith Cells 0-5 SEEN, Urine Bacteria 0 SEEN, Hyaline Casts 50-100 SEEN, Fine Granular Casts 10-25 SEEN, Urine Mucus 0 SEEN 06/05/25 17:55: ESR 26, Serum Osmolality 301 H, Ferritin 3038 H, Lactate Dehydrogenase 203, C-React Prot Ext Range 19.90 H, b-Hydroxybutyric mmol/L 4.4 H , JOHN-1 Antibody TNP, Sm (Gauthier) Antibody TNP, RIDE OPERATOR Antibody TNP, Scl-70 Scleroderma Ab TNP, Antichromatin Antibodies TNP, Centromere B Antibody TNP, HIV 1&2 Antibody Nonreactive 06/05/25 18:25: Lactic Acid 1.5 06/05/25 20:18: POC Glucose 130 H 06/05/25 21:15: Sodium 134, Potassium 3.6, Chloride 94 L, Carbon Dioxide 18.2 L, Anion Gap 22 H, Phosphorus 1.6 L, Magnesium 2.1 06/05/25 21:24: POC Glucose 126 H 06/05/25 22:17: Urine Osmolality 785, Urine Creatinine 66.20 06/05/25 22:38: POC Glucose 155 H 06/05/25 23:30: POC Glucose 148 H 06/06/25 00:36: POC Glucose 138 H 06/06/25 01:20: Sodium 133, Potassium 3.7, Chloride 96 L, Carbon Dioxide 24.9, Anion Gap 12, Phosphorus 1.4 L*, Magnesium 2.0 06/06/25 01:32: POC Glucose 141 H 06/06/25 02:34: POC Glucose 165 H 06/06/25 03:40: POC Glucose 157 H 06/06/25 04:39: POC Glucose 155 H 06/06/25 05:41: POC Glucose 100 06/06/25 06:15: WBC 9.1, RBC 3.52 L, Hgb 11.7 L, Hct 33.3 L, MCV 94.6, MCH 33.2 H, MCHC 35.1, RDW Std Deviation 42.9, RDW Coeff of Parviz 12.3, Plt Count 103 L, MPV 10.5, Immature Gran % (Auto) 0.400, Neut % (Auto) 84.4 H, Lymph % (Auto) 9.2 L, [place] % (Auto) 5.8, Eos % (Auto) 0.0, Baso % (Auto) 0.2, Absolute Neuts (auto) 7.7, Absolute Lymphs (auto) 0.84, Nucleated RBC % 0, Sodium 135, Potassium 3.7, Chloride 100, Carbon Dioxide 23.1, Anion Gap 12, BUN 11, Creatinine 0.60 L, Estim Creat Clear Calc 94.71, Est GFR (MDRD) Non-Af 108, BUN/Creatinine Ratio 18.7, Glucose 122 H, Calcium 8.8, Magnesium 1.8, Total Bilirubin 2.09 H, AST 90 H, ALT 53 H, Alkaline Phosphatase 166 H, Total Protein 6.5, Albumin 3.7, Globulin 2.8, Albumin/Globulin Ratio 1.3, TSH 5.630 H 06/06/25 06:42: POC Glucose 161 H Micro: Microbiology 06/05/25 12:59 Mucosa - Nose SARS-CoV-2, Influenza & RSV (PCR) - Final ABG Data ABG results: ABG 06/05/25 21:25 Specimen Type RENA Sample Site Not entered VBG pH 7.49 H VBG pO2 44 H VBG HCO3 20 L VBG Total CO2 21 L VBG O2 Sat (Calc) 84 H VBG Base Excess -3 L POC Mix VBG pCO2 Pt Tmp 27.0 L O2 Delivery Device Not entered Radiography Diagnostic Testing: Radiology Impression Chest X-Ray 06/05/25 13:25 IMPRESSION: Lungs appear clear throughout. No pleural effusion or pneumothorax is noted. The cardiomediastinal silhouette is within the normal range. Mild thoracic spine degenerative changes are noted. No acute osseous change is seen. No evidence of acute cardiopulmonary disease. Reading Location: [address] Abdomen/Pelvis CT 06/05/25 15:20 IMPRESSION: No acute abdominopelvic abnormalities. Hepatosplenomegaly. Reading Location: [facility] Gallbladder Ultrasound 06/05/25 15:55 IMPRESSION: No sonographic evidence for acute cholecystitis. No cholelithiasis. Hepatomegaly and hepatic steatosis. Reading Location: [id number] Physical Exam Narrative Seen and examined No fever. Nausea and vomiting has subsided. Abdominal discomfort is better. Denies any recent food poisoning/diarrhea or travel. She has constipation last BM was Sunday and then yesterday after admission Physical exam General: Alert, Oriented x3, Cooperative. BMI 21.5 kg/m² HEENT: Atraumatic, PERRLA, EOMI, Normocephalic. Oral: Oral mucosa moist no Gingival or Mucosal Lesions/ Ulcerations Neck: Supple, No JVD, Negative Carotid Bruits Chest wall/Lungs: Air entry equal in bilateral lung bases. No crepitation/rhonchi Cardiovascular: Regular rate and rhythm, Normal S1,S2, No M/G/R Abdomen: Bowel Sounds Present, Soft, very mild tenderness/discomfort over epigastrium, Non-Distended : No dysuria. No renal angle tenderness. No suprapubic tenderness. Extremities: No edema, Capillary Refill Less than 3 Seconds Skin: No rashes, No breakdown Musculoskeletal: No Tenderness to Palpation of Joints or Extremities Neurological: Cranial nerves II-XII grossly intact, DTR 2+/4. No acute focal neurological deficit. Psych/Mental Status: Normal Affect, Appropriate. Assessment & Plan Assessment/Plan (1) Acute pancreatitis: (2) Abnormal liver function test: (3) Hyperglycemia: (4) High anion gap metabolic acidosis: PLAN: Plan 50-year-old female being admitted for persistent nausea vomiting, decreased oral intake for 1 week. She states she is social alcohol drinker about 2-3 times a week, 3 drinks at a time mainly wine sometimes Vodka on the rocks. In her 20s for 2 to 3 years she drink heavily/binge drinking about 7-8 drinks mainly beer per day. #Acute pancreatitis with elevated liver function tests: Patient has mild epigastric discomfort, lipase was high 1600 with persistent nausea and vomiting and decreased oral intake. Total bili 3.94, improved to 2.09 transaminases and ALP elevated improving -Had about 5 L of IV fluid. Decrease to D5 half NS. -MRCP ordered. GI consulted. CT abdomen and ultrasound shows hepatomegaly size 20 cm fatty liver. Otherwise GB/biliary system, pancreas kidneys and adrenals unremarkable. - Autoimmune hepatitis panel ordered per GI # Complex acid-base balance disorder: Metabolic alkalosis due to nausea vomiting/dehydration, high anion gap metabolic acidosis from starvation. Patient mother has diabetes.. Supervisor [employer] consulted. - In ED, glucose 261, BMP bicarb 11.8 and an anion gap of 34 with normal lactic acid -Urine ketones greater than 150 -Serum beta hydroxybutyrate 4.4 05/30; patient was started on IV fluid normal saline changed to D5 half NS and insulin drip. Patient had vigorous rehydration. IV fluid titrated down. VBG 7.49/mixed pCO2 27/44/21. Since VBG O2 less than 75 therefore ABG ordered in the morning. ABG 7.4 //-. Initially probably patient had metabolic alkalosis then bicarb decreased because of increased AG metabolic acidosis and compensatory respiratory alkalosis. IV thiamine also given. Clear liquid diet started. Insulin drip discontinued. IV fluid continue. # NANCY, due to prerenal and contraction metabolic alkalosis: - BUN of 33 and creatinine 1.32 which decreased to 0.6 therefore 0.7 creatinine decreased in 24 hours therefore retrospectively patient has NANCY. No prior creatinine as baseline. - # Hyponatremia - Suspect due to dehydration, patient receiving IV fluids - Serum sodium 135 improved normal. Magnesium 1.8, hypophosphatemia. Phosphorus 1.6- improved to 1.8 and low normal potassium. #Elevated glucose probably response from starvation -No hx of diabetes -Glucose 261 in ED -A1c 5.4%, diabetes mellitus ruled out. - Needs follow-up A1c as she has family history of diabetes #DVT ppx: scds Clinical Impression(s) from Imaging Studies Chest X-Ray 06/05/25 13:25 IMPRESSION: Lungs appear clear throughout. No pleural effusion or pneumothorax is noted. The cardiomediastinal silhouette is within the normal range. Mild thoracic spine degenerative changes are noted. No acute osseous change is seen. No evidence of acute cardiopulmonary disease. Reading Location: [id number] Abdomen/Pelvis CT 06/05/25 15:20 IMPRESSION: No acute abdominopelvic abnormalities. Hepatosplenomegaly. Reading Location: [id number] Gallbladder Ultrasound 06/05/25 15:55 IMPRESSION: No sonographic evidence for acute cholecystitis. No cholelithiasis. Hepatomegaly and hepatic steatosis. Reading Location: [id number] Charges/Coding Multi Select Codes Visit Charges Visit Charges: 16584 Subs Hosp L3
[2025-06-06 08:01] LABS: Base Excess 1 mmol/L (-2 to +2); PO2 67 mmHG (75-100); SITE Not entered; SO2 95 % (95-99)
[2025-06-06 09:51] LABS: Alcohol, Blood (Medical)-Serum < 10.1 mg/dL (<=10.0)
[2025-06-06 09:55] LABS: Barbiturate Urine NEGATIVE (< 200 ng/mL); Benzodiazepine Urine NEGATIVE (< 200 ng/mL); PCP Urine NEGATIVE (< 25 ng/mL); THC Urine PRESUMPTIVE POSITIVE (< 50 ng/mL)
--- NOTE | 2025-06-06 11:32 | CON.PCM.CC_ITS ---
HPI Consult Data Date of Consult: 06/06/25 HPI Narrative Reason for Consultation: Critical care HPI Narrative: MELISSA RANDALL, is a 50 F who presents with abdominal pain, nausea/ vomiting and evidence of ketoacidosis, possible pancreatitis. She endorses only modest alcohol consumption currently though states she previously binge drank in her younger years. Imaging showed no structural abnormalities of the pancreas and a grossly enlarged liver and spleen consistent with FLD. She was treated with insulin drip and IVF. Currently she denies abdomial pain, is "not yet hungry". [facility]LY [facility] Medical History (Updated 06/05/25 @ 19:[address] Anne Rios MD) Encounter for screening for COVID-19 Limb weakness Difficulty balancing when standing Abnormal bruising Knee pain SOB (shortness of breath) Home Medications Medication Instructions Recorded Last Taken Type NK 06/05/25 Unknown History Allergy/AdvReac Type Severity Reaction Status Date / Time No Known Allergies Allergy Verified 06/05/25 11:25 Social History Smoking Status: Former smoker Objective Data Objective Data Vital Signs: Vital Signs Last response 3 Temperature 36.7 C 06/06/25 04:00 Temperature Source Oral 06/06/25 04:00 Pulse Rate 85 06/06/25 07:00 Pulse Strength Weak (1+) 06/05/25 21:00 Respiratory Rate 16 06/06/25 07:00 Respiratory Effort Normal, Non-Labored 06/06/25 04:00 Respiratory Depth Normal 06/06/25 04:00 Respiratory Pattern Normal 06/06/25 04:00 Blood Pressure 130/93 H 06/06/25 07:00 Blood Pressure Mean 105 06/06/25 07:00 Blood Pressure Source Monitor 06/06/25 07:00 Blood Pressure Position Semi-Fowlers 06/06/25 07:00 Blood Pressure Location Right Arm 06/06/25 07:00 Pulse Ox 96 06/06/25 07:00 Oxygen Delivery Method Room Air 06/06/25 07:00 I&O: I&O Last 24 Hours 3 06/05/25 06/05/25 06/06/25 11:59 23:59 11:59 Intake Total 2184.32 / 2184.32 2866.64 / 2866.64 Output Total 150 / 150 830 / 830 Balance 2034.32 / 2034.32 2035.64 / 2035.64 I&O: Total Stay 3 06/05/25 11:21 thru 06/06/25 10:58 Intake Total 5050.96 Output Total 980 Balance 4070.96 Current Meds Ordered / Administered: Current meds ordered / Administered 3 Generic Name Dose Route Start Last Admin Trade Name Terrell PRN Reason Stop Dose Admin Glucagon 1 mg 06/05/25 19:41 Glucagon 1 Mg/Ml Syringe IM X1 PRN Hypoglycemia Protocol Sodium Chloride 250 mls @ 15 mls/hr 06/05/25 18:56 IV .[id number] PRN Saline Flush Sodium Chloride 250 mls @ 15 mls/hr 06/05/25 18:56 IV .[id number] PRN Additional IVPB Infusion Dextrose/Sodium Chloride 1,000 mls @ 100 mls/hr 06/05/25 19:41 IV .Q10H PRN Blood Glucose < 250mg/dL Dextrose 250 mls @ 0 mls/hr 06/05/25 19:41 Dextrose 10%-Water IV .Q0M PRN HYPOGLYCEMIA Protocol As Directed Thiamine HCl 100 mg/ Sodium 51 mls @ 200 mls/hr 06/06/25 10:00 Chloride IV DAILY SUZE Lorazepam 0.5 mg 06/05/25 22:26 Lorazepam 2 Mg/Ml Syringe IV Q2H PRN PRN AGITATION Melatonin 10 mg 06/05/25 19:15 Melatonin 10 Mg Tablet PO QHS PRN PRN INSOMNIA Morphine Sulfate 2 - 4 mg 06/05/25 19:15 Morphine 2 Mg/Ml Syringe IV Q3H PRN PRN Pain Score 6-10 Ondansetron HCl 4 mg 06/05/25 19:45 06/05/25 21:19 Ondansetron 4 Mg/2 Ml Vial IV 4 mg Q6H PRN PRN Administration NAUSEA/VOMITING Oxycodone HCl 5 mg 06/05/25 19:15 06/06/25 06:19 Oxycodone 5 Mg Tablet PO 5 mg Q4H PRN PRN Administration Pain Score 4-10 Senna/Docusate Sodium 2 tablet 06/05/25 22:00 06/05/25 21:19 Senna/Docusate Sodium 1 Tablet PO 2 tablet BID SUZE Administration Sodium Chloride 10 - 40 ml 06/05/25 18:56 06/06/25 06:19 0.9% Saline Lock 10 Ml Syringe IV 10 ml UD PRN Administration SALINE FLUSH Physical Exam Const alert, oriented x3 and no apparent distress General Appearance: cooperative HEENT Head and Scalp: normal to inspection Mouth: oral and palatal mucosa normal Eyes Sclera: sclera abnormal Chest inspection of chest normal Resp normal respiratory effort Effort and Inspection: able to speak in complete sentences GI Palpation: hepatomegaly Lab / Micro Data Attestation: I reviewed the patient's lab results. 06/06/25 06:15 06/06/25 06:15 Labs: Laboratory Results - last 24 hr 06/05/25 11:45: WBC 15.5 H, RBC 4.67, Hgb 15.6 H, Hct 43.9, MCV 94.0, MCH 33.4 H , MCHC 35.5, RDW Std Deviation 42.3, RDW Coeff of Parviz 12.2, Plt Count 194, MPV 10.4, Immature Gran % (Auto) 0.700, Neut % (Auto) 91.3 H, Lymph % (Auto) 2.3 L, [place]mer % (Auto) 5.4, Eos % (Auto) 0.0, Baso % (Auto) 0.3, Absolute Neuts (auto) 14.1 H, Absolute Lymphs (auto) 0.36 L, Nucleated RBC % 0, Sodium 128 L, Potassium 3.7, Chloride 82 L, Carbon Dioxide 11.8 L, Anion Gap 34 H, BUN 33 H, C reatinine 1.32 H, Estim Creat Clear Calc 41.24 L, Est GFR (MDRD) Non-Af 49 L, B UN/Creatinine Ratio 24.6 H, Glucose 261 H, Hemoglobin A1c 5.4, Calcium 9.9, T otal Bilirubin 3.94 H, Direct Bilirubin 2.47 H, AST 124 H, ALT 87 H, Alkaline Phosphatase 234 H, Total Protein 8.8 H, Albumin 5.0, Globulin 3.8, Albumin/Globulin Ratio 1.3, Lipase 1645 H 06/05/25 12:59: Urine Color Yellow, Urine Clarity Sl. Cloudy, Urine pH 6.0, Ur Specific Conception 1.015, Urine Protein 100 H, Urine Glucose (UA) Normal, Urine Ketones 150 A*, Urine Occult Blood 150 H, Urine Nitrite Negative, Urine Bilirubin 3 H, Urine Urobilinogen 4 H, Ur Leukocyte Esterase 25 H, Urine RBC 5- 10 SEEN, Urine WBC 0-5 SEEN, Ur Squamous Epith Cells 0-5 SEEN, Urine Bacteria 0 SEEN, Hyaline Casts 50-100 SEEN, Fine Granular Casts 10-25 SEEN, Urine Mucus 0 SEEN 06/05/25 17:55: ESR 26, Serum Osmolality 301 H, Ferritin 3038 H, Lactate Dehydrogenase 203, C-React Prot Ext Range 19.90 H, b-Hydroxybutyric mmol/L 4.4 H , JOHN-1 Antibody TNP, Sm (Gauthier) Antibody TNP, FABRIC CUTTER Antibody TNP, Scl-70 Scleroderma Ab TNP, Antichromatin Antibodies TNP, Centromere B Antibody TNP, HIV 1&2 Antibody Nonreactive 06/05/25 18:25: Lactic Acid 1.5 06/05/25 20:18: POC Glucose 130 H 06/05/25 21:15: Sodium 134, Potassium 3.6, Chloride 94 L, Carbon Dioxide 18.2 L, Anion Gap 22 H, Phosphorus 1.6 L, Magnesium 2.1 06/05/25 21:24: POC Glucose 126 H 06/05/25 22:17: Urine Osmolality 785, Urine Creatinine 66.20 06/05/25 22:38: POC Glucose 155 H 06/05/25 23:30: POC Glucose 148 H 06/06/25 00:36: POC Glucose 138 H 06/06/25 01:20: Sodium 133, Potassium 3.7, Chloride 96 L, Carbon Dioxide 24.9, Anion Gap 12, Phosphorus 1.4 L*, Magnesium 2.0 06/06/25 01:32: POC Glucose 141 H 06/06/25 02:34: POC Glucose 165 H 06/06/25 03:40: POC Glucose 157 H 06/06/25 04:39: POC Glucose 155 H 06/06/25 05:41: POC Glucose 100 06/06/25 06:15: WBC 9.1, RBC 3.52 L, Hgb 11.7 L, Hct 33.3 L, MCV 94.6, MCH 33.2 H, MCHC 35.1, RDW Std Deviation 42.9, RDW Coeff of Parviz 12.3, Plt Count 103 L, MPV 10.5, Immature Gran % (Auto) 0.400, Neut % (Auto) 84.4 H, Lymph % (Auto) 9.2 L, [place] % (Auto) 5.8, Eos % (Auto) 0.0, Baso % (Auto) 0.2, Absolute Neuts (auto) 7.7, Absolute Lymphs (auto) 0.84, Nucleated RBC % 0, Sodium 135, Potassium 3.7, Chloride 100, Carbon Dioxide 23.1, Anion Gap 12, BUN 11, Creatinine 0.60 L, Estim Creat Clear Calc 94.71, Est GFR (MDRD) Non-Af 108, BUN/Creatinine Ratio 18.7, Glucose 122 H, Calcium 8.8, Phosphorus 1.8 L, Magnesium 1.8, Total Bilirubin 2.09 H, AST 90 H, ALT 53 H, Alkaline Phosphatase 166 H, Total Protein 6.5, Albumin 3.7, Globulin 2.8, Albumin/Globulin Ratio 1.3, TSH 5.630 H 06/06/25 06:42: POC Glucose 161 H 06/06/25 07:53: POC Glucose 140 H 06/06/25 09:00: Urine Opiates Screen NEGATIVE, U Buprenorphine Qual NEGATIVE, Ur Oxycodone Screen PRESUMPTIVE POSITIVE, Urine Methadone Screen NEGATIVE, Urine Fentanyl Screen NEGATIVE, Ur Barbiturates Screen NEGATIVE, Ur Phencyclidine Scrn NEGATIVE, Ur Amphetamines Screen NEGATIVE, U Benzodiazepines Scrn NEGATIVE, Urine Cocaine Screen NEGATIVE, U Cannabinoids Screen PRESUMPTIVE POSITIVE, Ethyl Alcohol < 10.1 Micro: Microbiology 06/05/25 12:59 Urine, Clean Catch Urine Culture - Preliminary GNR lactose bulk tank car unloader 06/05/25 12:59 Mucosa - Nose SARS-CoV-2, Influenza & RSV (PCR) - Final ABG Data ABG results: ABG 06/05/25 06/06/25 21:25 07:57 Specimen Type RENA ART Sample Site Not entered Not entered pH 7.49 H Bicarbonate Actual 24.7 Total CO2 26 Base Excess 1 O2 Saturation 95 ABG pCO2 32.3 L ABG pO2 67 L VBG pH 7.49 H VBG pO2 44 H VBG HCO3 20 L VBG Total CO2 21 L VBG O2 Sat (Calc) 84 H VBG Base Excess -3 L POC Mix VBG pCO2 Pt Tmp 27.0 L O2 Delivery Device Not entered Room Air Vent Mode Not entered Imaging Radiology Impression Chest X-Ray 06/05/25 13:25 IMPRESSION: Lungs appear clear throughout. No pleural effusion or pneumothorax is noted. The cardiomediastinal silhouette is within the normal range. Mild thoracic spine degenerative changes are noted. No acute osseous change is seen. No evidence of acute cardiopulmonary disease. Reading Location: [id number] Abdomen/Pelvis CT 06/05/25 15:20 IMPRESSION: No acute abdominopelvic abnormalities. Hepatosplenomegaly. Reading Location: [facility] Gallbladder Ultrasound 06/05/25 15:55 IMPRESSION: No sonographic evidence for acute cholecystitis. No cholelithiasis. Hepatomegaly and hepatic steatosis. Reading Location: [facility] Assessment and Plan . Assessment and plan: #ketoacidosis, nondiabetic - ?alcoholic ketoacidosis - no reports of acute intoxication at presentation - glucose control improved, now off insulin drip #hepatomegaly/ FLD - alcoholic vs NAFLD - only modest degree of jaundice, resolving - transaminases improved - no evidence for acute decompensation of liver function #questionable pancreatitis - lipase elevated - clinically resolving quickly - no evidence of severe pancreatitis requiring ongoing intensive care monitoring - no GS or structural abnormalities on abd CT - possible alcohol-related? - no offending medications noted Isidro Delacruz MD Critical Care Time: 60 minutes The entirety of this encounter was done via Telemedicine
[2025-06-06] MEDS: Dext 5%-0.45% NS 1,000 ML 100 ML IV (12:13)
[2025-06-06] MEDS: Thiamine Hydrochloride 100 MG in 0.9% Normal Saline (50mL Bag) 50 ML 200 MG IV (14:29)
[2025-06-06 14:57] LABS: Anion Gap 15 (5-15); BUN 8 mg/dL (4-19); BUN/Creat Ratio 13.3 RATIO (10-20); CPK Total, Creatine Kinase 32 U/L (24-195); Calcium,Total 9.3 mg/dL (7.6-11.0); Carbon Dioxide 22.9 mmol/L (21.0-32.0); Chloride 97 mmol/L (98-108); Estimated Creatinine Clearance 94.71 ml/min (50-250); Glucose 111 mg/dL (70-99); Potassium 3.6 mmol/L (3.3-5.1)
[2025-06-06 15:14] LABS: Magnesium 1.9 mg/dL (1.5-2.2)
[2025-06-06] MEDS: Potassium Phosphate 30 MM in 0.9% Normal Saline (250mL Bag) 250 ML 55 MM IV (15:48)
[2025-06-06] MEDS: Magnesium Chloride 64 MG Delay Rel.Tablet 128 MG PO (15:50)
[2025-06-06] MEDS: FLU VACCINE 2025-26(6MOS UP) 45 MCG/0.5 ML SYRINGE IM (15:54)
--- NOTE | 2025-06-06 19:15 | MRI_ITS ---
PROCEDURE: MRCP ABDOMEN WITHOUT CONTRAST 06/06/2025 REASON FOR EXAM: ABN LIVER FUNCTION, GI RECOMMENDED TECHNIQUE: Procedure Code: [id number] Modality: MR Procedure: MRCP ABDOMEN WITHOUT CONTRAST Multiplanar and multisequence images were obtained. CONTRAST: VOLUME: mL FINDINGS: Liver: Low signal indicating steatosis. Biliary: . No intra hepatic or extrahepatic biliary ductal dilatation. The pancreas, spleen, adrenals and kidneys are unremarkable. No cholelithiasis. No choledochal lithiasis Peritoneum / Retroperitoneum: Limited imaging is unremarkable. Lymph Nodes: No adenopathy detected. Major Vessels: Aorta and its branches in the IVC are unremarkable. Bones: L2 vertebral hemangioma. No destructive process. MRI/MRCP Abdomen without Contrast IMPRESSION: No acute process. Unremarkable exam of liver gallbladder, intra and extrahepat ic biliary ductal system Reading Location: [id number]
--- NOTE | 2025-06-06 19:30 | CASEMGMT ---
JOCELYN RICE DAM TENDER ASSISTANT CM to room to meet with patient for initial transition planning/care coordination assessment. JOCELYN RICE introduced self and role at [facility]. Pt voices understanding and consents to assessment at this time. Pt resting in bed in no distress at this time. Pt is A/O at this time and answers all questions appropriately. Care providers, pharmacy, and demographics verified/updated at this time. PCP:No PCP. Local Physician's Directory provided. Specialists: none Preferred Pharmacy: [facility] Insurance: [employer] Prescription Benefit: yes LNOK: Mother, Rachel. Father is . No children. Living Arrangements: Lives w/partner in one-story home w/basement and 4 steps to enter. States no difficulty w/steps. Independent w/ADL's and IADL's. Transportation: Pt states drives self and states no transportation concerns at this time. DME: Denies using any DME and denies needs. HHC/SNF: Hx [facility] many yrs ago (~ 1994) after ankle fracture. No hx of [facility]. Pt she was feeling slightly weak earlier, but denies feeling like she will need any therapy @ discharge. ETOH: Pt states she drinks anywhere from 2-4 drinks about 2-3 x's/week. She states she does not feel like she has a problem but she states d/t admission for pancreatitis she plans to quit drinking. She denies wanting any resources to help w/stopping. She was made aware, if she would like resources in the future, she can f/u with [facility] or can contact @ [facility] for further resources. Pt wishes to return home and states has no concerns with going home at time of discharge. PLAN: Home [place] [facility] JOCELYN RICE
[2025-06-06] MEDS: Senna/Docusate Sodium 1 Tablet 2 TABLET PO (21:38)
[2025-06-07 03:10] VITALS: BP 142/97; PULSE 100; RESP 16; TEMP 36.6; O2SAT 98
[2025-06-07 04:53] LABS: Hematocrit 36.0 % (37-47); Hemoglobin 12.5 g/dL (12.0-15.0); Immature Granulocytes Count 0.080 X10^3/uL (0.0-0.0); Mean Corp Hgb Conc 34.7 g/dL (32-36); Mean Corpuscular Volume 95.0 fL (81-99); Mean Platelet Vol. 11.8 fl (6.2-12.0); NRBC Flagged by Analyzer 0 % (0-5); POSITIVE COUNT YES; Platelet Count 87 K/mm3 (150-450); RBC Distribution Width CV 12.6 % (11.6-14.6); RBC Distribution Width SD 43.8 fl (35.1-43.9); Red Blood Count 3.79 M/mm3 (4.2-5.4); White Blood Count 6.8 K/mm3 (4.4-11.0)
[2025-06-07 05:03] LABS: Differential Indicated SCAN CRITERIA MET
[2025-06-07 05:05] LABS: Anion Gap 13 (5-15); BUN 5 mg/dL (4-19); BUN/Creat Ratio 11.0 RATIO (10-20); Calcium,Total 9.5 mg/dL (7.6-11.0); Carbon Dioxide 27.5 mmol/L (21.0-32.0); Chloride 97 mmol/L (98-108); Estimated Creatinine Clearance 129.15 ml/min (50-250); Glucose 97 mg/dL (70-99); Magnesium 1.9 mg/dL (1.5-2.2); Potassium 3.5 mmol/L (3.3-5.1)
[2025-06-07] MEDS: 0.9% Saline Lock 10 ML Syringe IV ×3 (05:40→22:44)
[2025-06-07 06:00] VITALS: BMI 21.2
[2025-06-07 06:38] LABS: GGTP 1448 IU/L (0-60)
[2025-06-07 08:20] VITALS: BP 127/98; PULSE 112; RESP 18; TEMP 36.6; O2SAT 98
[2025-06-07] MEDS: Senna/Docusate Sodium 1 Tablet 2 TABLET PO ×2 (08:52→22:16)
[2025-06-07] MEDS: Magnesium Chloride 64 MG Delay Rel.Tablet 128 MG PO ×2 (08:52→22:17)
[2025-06-07 09:04] LABS: AST(SGOT) 124 U/L (<=31); Alanine Aminotransfer ALT/SGPT 58 U/L (<=34); Albumin, Serum 3.9 g/dL (3.5-5.0); Alkaline Phosphatase 195 U/L (35-104); Bilirubin, Direct 1.31 mg/dL (0.00-0.30); Globulin 3.1 g/dL (2.2-4.2)
[2025-06-07] MEDS: Thiamine Hydrochloride 100 MG in 0.9% Normal Saline (50mL Bag) 50 ML 200 MG IV (10:37)
[2025-06-07] MEDS: Na Biphos/Potassium Phosphate PACKET 1 PACKET PO ×3 (10:38→22:15)
--- NOTE | 2025-06-07 14:54 | PCM.PN.HOSP ---
Reason for Visit Chief Complaint: Nausea and vomiting Objective Data Objective Data Vital Signs: Vital Signs Temp Pulse Resp BP Pulse Ox O2 Del Method 98 F 112 H 18 127/98 H 98 Room Air 06/07/25 08:20 06/07/25 08:20 06/07/25 08:20 06/07/25 08:20 06/07/25 08:20 06/07/25 08:20 Oxygen Delivery Method Room Air Weight: 124 lb 8.979 oz Body Mass Index (BMI) 21.2 Intake & Output: Intake and Output for Last 24 Hours 06/05/25 06/06/25 06/07/25 23:59 23:59 23:59 Intake Total 2184.32 / 2184.32 5197.64 / 5427.64 186 / 1860 Output Total 150 / 150 1430 / 1430 Balance 2034.32 / 2034.32 3767.64 / 3997.64 1860 / 1860 Lab / Micro Data 06/07/25 03:36 06/07/25 03:36 Labs: Laboratory Results - last 24 hr 06/06/25 09:00: GGT 1448 H 06/06/25 14:20: Sodium 134, Potassium 3.6, Chloride 97 L, Carbon Dioxide 22.9, Anion Gap 15, BUN 8, Creatinine 0.60 L, Estim Creat Clear Calc 94.71, Est GFR (MDRD) Non-Af 108, BUN/Creatinine Ratio 13.3, Glucose 111 H, Calcium 9.3, Phosphorus 0.9 L*, Magnesium 1.9, Total Creatine Kinase 32 06/06/25 21:35: POC Glucose 122 H 06/07/25 03:36: WBC 6.8, RBC 3.79 L, Hgb 12.5, Hct 36.0 L, MCV 95.0, MCH 33.0 H, MCHC 34.7, RDW Std Deviation 43.8, RDW Coeff of Parviz 12.6, Plt Count 87 L, MPV 11.8, Immature Gran % (Auto) 1.200 H, Neut % (Auto) 77.9 H, Lymph % (Auto) 14.7 L, [place] % (Auto) 5.6, Eos % (Auto) 0.3, Baso % (Auto) 0.3, Absolute Neuts (auto) 5.3, Absolute Lymphs (auto) 1.00, Nucleated RBC % 0, Platelet Estimate MOD DEC, Sodium 137, Potassium 3.5, Chloride 97 L, Carbon Dioxide 27.5, Anion Gap 13, BUN 5, Creatinine 0.44 L, Estim Creat Clear Calc 129.15, Est GFR (MDRD) Non-Af 116, BUN/Creatinine Ratio 11.0, Glucose 97, Calcium 9.5, Phosphorus 2.3 L, Magnesium 1.9, Total Bilirubin 2.01 H, Direct Bilirubin 1.31 H, AST 124 H, ALT 58 H, Alkaline Phosphatase 195 H, Total Protein 7.1, Albumin 3.9, Globulin 3.1, TSH 10.600 H, Free T4 1.40 Micro: Microbiology 06/05/25 12:59 Urine, Clean Catch Urine Culture - Final Mixed Gram Pos & Gram Neg Org 06/05/25 12:59 Mucosa - Nose SARS-CoV-2, Influenza & RSV (PCR) - Final Radiography Diagnostic Testing: Radiology Impression MRCP 06/06/25 19:15 IMPRESSION: No acute process. Unremarkable exam of liver gallbladder, intra and extrahepatic biliary ductal system Reading Location: [id number] Physical Exam Narrative Seen and examined No fever. Patient felt mild nausea after lunch. Mild epigastric abdominal discomfort. Denies any recent food poisoning/diarrhea or travel. Moving bowel. Physical exam General: Alert, Oriented x3, Cooperative. BMI 21.5 kg/m² HEENT: Atraumatic, PERRLA, EOMI, Normocephalic. Oral: Oral mucosa moist no Gingival or Mucosal Lesions/ Ulcerations Neck: Supple, No JVD, Negative Carotid Bruits Chest wall/Lungs: Air entry equal in bilateral lung bases. No crepitation/rhonchi Cardiovascular: Regular rate and rhythm, Normal S1,S2, No M/G/R Abdomen: Bowel Sounds Present, Soft, mild abdominal discomfort, Non-Distended : No dysuria. No renal angle tenderness. No suprapubic tenderness. Extremities: No edema, Capillary Refill Less than 3 Seconds Skin: No rashes, No breakdown Musculoskeletal: No Tenderness to Palpation of Joints or Extremities Neurological: Cranial nerves II-XII grossly intact, DTR 2+/4. No acute focal neurological deficit. Psych/Mental Status: Normal Affect, Appropriate. Assessment & Plan Assessment/Plan (1) Acute pancreatitis: (2) Abnormal liver function test: (3) Hyperglycemia: (4) High anion gap metabolic acidosis: PLAN: Plan 50-year-old female being admitted for persistent nausea vomiting, decreased oral intake for 1 week. She states she is social alcohol drinker about 2-3 times a week, 3 drinks at a time mainly wine sometimes Vodka on the rocks. In her 20s for 2 to 3 years she drink heavily/binge drinking about 7-8 drinks mainly beer per day. #Acute pancreatitis and acute on chronic hepatitis with elevated liver function tests most likely due to chronic alcohol use: Patient has mild epigastric discomfort, lipase was high 1600 with persistent nausea and vomiting and decreased oral intake. Total bili 3.94, improved to 2.09 transaminases and ALP elevated improving -Had about 5 L of IV fluid. Decrease to D5 half NS. -MRCP ordered. GI consulted. CT abdomen and ultrasound shows hepatomegaly size 20 cm fatty liver. Otherwise GB/biliary system, pancreas kidneys and adrenals unremarkable. - Autoimmune hepatitis panel ordered per GI 06/07: MRCP reported no acute process. Unremarkable exam of liver gallbladder, intra and extrahepatic biliary ductal system. Pancreas, spleen and adrenal and kidneys are unremarkable. No cholelithiasis. No choledocholithiasis. No signal in liver indicating steatosis. Liver chemistry shows improvement in total bilirubin. Transaminases still elevated, AST 124 ALT 58 and ALP 195 raising possibility of alcoholic hepatitis. Advised quitting alcohol. # Complex acid-base balance disorder: Metabolic alkalosis due to nausea vomiting/dehydration, high anion gap metabolic acidosis from starvation. Patient mother has diabetes.. Construction Operations Manager consulted. - In ED, glucose 261, BMP bicarb 11.8 and an anion gap of 34 with normal lactic acid -Urine ketones greater than 150 -Serum beta hydroxybutyrate 4.4 05/30; patient was started on IV fluid normal saline changed to D5 half NS and insulin drip. Patient had vigorous rehydration. IV fluid titrated down. VBG 7.49/mixed pCO2 27/44/21. Since VBG O2 less than 75 therefore ABG ordered in the morning. ABG 7.4 //25-26. Initially probably patient had metabolic alkalosis then bicarb decreased because of increased AG metabolic acidosis and compensatory respiratory alkalosis. IV thiamine also given. Clear liquid diet started. Insulin drip discontinued. IV fluid continue. 06/07: Anion gap normal 13, BUN/creatinine normal. Electrolytes K3.7. Severe hypophosphatemia 0.9 yesterday replaced IV potassium phosphate. Today phosphorus 2.3. Magnesium 1.9 normal. Neutra-Phos ordered and prescription given. Prescription for thiamine was given # NANCY, due to prerenal and contraction metabolic alkalosis: - BUN of 33 and creatinine 1.32 which decreased to 0.6 therefore 0.7 creatinine decreased in 24 hours therefore retrospectively patient has NANCY. No prior creatinine as baseline. - 06/07 NANCY resolved. # Hyponatremia - Suspect due to dehydration, patient receiving IV fluids - Serum sodium 135 improved normal. Magnesium 1.8, hypophosphatemia. Phosphorus 1.6- improved to 1.8 and low normal potassium. 06/07 serum sodium 137. Hyponatremia resolved. #Elevated glucose probably response from starvation -No hx of diabetes -Glucose 261 in ED -A1c 5.4%, diabetes mellitus ruled out. - Needs follow-up A1c as she has family history of diabetes #DVT ppx: scds Clinical Impression(s) from Imaging Studies Chest X-Ray 06/05/25 13:25 IMPRESSION: Lungs appear clear throughout. No pleural effusion or pneumothorax is noted. The cardiomediastinal silhouette is within the normal range. Mild thoracic spine degenerative changes are noted. No acute osseous change is seen. No evidence of acute cardiopulmonary disease. Reading Location: [address] Abdomen/Pelvis CT 06/05/25 15:20 IMPRESSION: No acute abdominopelvic abnormalities. Hepatosplenomegaly. Reading Location: [id number] Gallbladder Ultrasound 06/05/25 15:55 IMPRESSION: No sonographic evidence for acute cholecystitis. No cholelithiasis. Hepatomegaly and hepatic steatosis. Reading Location: [id number] Charges/Coding Visit Charges Inpatient E&M: 89702 Subs Hosp L2
[2025-06-07 15:07] VITALS: BP 124/96; PULSE 114; RESP 18; O2SAT 100
[2025-06-07 16:13] VITALS: BP 125/98; PULSE 106; RESP 18; TEMP 36.4; O2SAT 96
[2025-06-07 22:22] VITALS: BP 132/94; PULSE 90; RESP 18; TEMP 36.6; O2SAT 98
[2025-06-08 03:21] VITALS: BP 116/87; PULSE 100; RESP 17; TEMP 36.9; O2SAT 98
[2025-06-08] MEDS: 0.9% Saline Lock 10 ML Syringe IV (03:34)
[2025-06-08] MEDS: Na Biphos/Potassium Phosphate PACKET 1 PACKET PO (05:51)
[2025-06-08 05:54] VITALS: BMI 20.9; BMI 21.2
[2025-06-08 06:01] LABS: AST(SGOT) 106 U/L (<=31); Alanine Aminotransfer ALT/SGPT 58 U/L (<=34); Albumin, Serum 3.7 g/dL (3.5-5.0); Alkaline Phosphatase 205 U/L (35-104); Bilirubin, Direct 1.09 mg/dL (0.00-0.30); Globulin 3.3 g/dL (2.2-4.2)
[2025-06-08 07:24] LABS: Hematocrit 37.8 % (37-47); Hemoglobin 13.1 g/dL (12.0-15.0); Immature Granulocytes Count 0.070 X10^3/uL (0.0-0.0); Mean Corp Hgb Conc 34.7 g/dL (32-36); Mean Corpuscular Volume 95.7 fL (81-99); Mean Platelet Vol. 12.2 fl (6.2-12.0); NRBC Flagged by Analyzer 0 % (0-5); POSITIVE COUNT YES; Platelet Count 87 K/mm3 (150-450); RBC Distribution Width CV 12.3 % (11.6-14.6); RBC Distribution Width SD 43.2 fl (35.1-43.9); Red Blood Count 3.95 M/mm3 (4.2-5.4); White Blood Count 7.4 K/mm3 (4.4-11.0)
[2025-06-08 07:56] VITALS: BP 123/99; PULSE 106; RESP 16; TEMP 37.1; O2SAT 94
[2025-06-08 08:09] LABS: Anion Gap 17 (5-15); BUN 7 mg/dL (4-19); BUN/Creat Ratio 15.5 RATIO (10-20); CRP 20.30 mg/L (0.0-3.0); Calcium,Total 9.5 mg/dL (7.6-11.0); Carbon Dioxide 22.9 mmol/L (21.0-32.0); Chloride 96 mmol/L (98-108); Estimated Creatinine Clearance 123.54 ml/min (50-250); Glucose 107 mg/dL (70-99); Lipase 216 U/L (13-75); Potassium 3.1 mmol/L (3.3-5.1)
[2025-06-08 08:21] LABS: LDH 186 U/L (84-246)
[2025-06-08] MEDS: Senna/Docusate Sodium 1 Tablet 2 TABLET PO (09:35)
[2025-06-08] MEDS: Magnesium Chloride 64 MG Delay Rel.Tablet 128 MG PO (09:35)
--- NOTE | 2025-06-08 10:47 | PCM.DC ---
Discharge Instructions DC O2, CPAP, BIPAP needs Home O2 Discharge instructions: No Follow Up Care Test Results: Test results from this visit will be discussed in further detail at your follow-up appointment, if applicable. Discharge Plan Admission Admit Date/Time: 06/05/25 18:28 Primary Reason for Your Visit: Acute pancreatitis Attending Provider: Galileo Whatley Primary Care Provider: Care Physician,No Primary Consulting Providers: Anne Rios; Galileo Whatley; Gerardo Umaña; Nanci Cano; Barbie Jaimes; Dora Michelle; Jesus Kwok; Balta Allen; Chinedu Eid; Jason Villanueva; Boris Gilbert; Isidro Delacruz; Trell Meredith; Ceh Nobles; Joey Zarate; Escobar Jeffers; Lonny Quiroz; Charity Jones; Satish Trujillo; Jacquie Mcintosh; Jose Miguel Voss; Praful Watts; Javier Ackerman; Shane Lyn; Bailey Martinez; Zenaida Inman; Rob Hawk; Tuan Angelo; Tanner De Santiago; Tito Sinha Discharge Orders/Prescriptions Prescriptions: New thiamine HCl (vitamin B1) 100 mg tablet 100 mg PO DAILY 30 Days Qty: 30 2RF sod phos di, mono-K phos mono 250 mg tablet 1 tab PO TID 5 Days Qty: 15 0RF Referrals / Follow Up: Care Physician,No Primary [Primary Care Provider, Medical] Dora Michelle PA [Med Staff - [facility] Prof, Gastroenterology] - Within 1 Month Disposition Disposition (needs filled in before D/C Order can be placed): Home, Self Care
--- NOTE | 2025-06-08 10:51 | PCM.DC.SUM ---
Providers Date of Admission: 06/05/25 Date of Discharge: 06/08/25 Primary Care Physician: Mariana Primary Care Phys Consultations 06/05/25 19:15 Consult: Gastroenterology Routine Consulting Provider: Ana [facility] Reason for Consult: Acute pancreatitis, elevated liver function EMERGENT Consult: No Notified: Yes Date Notified: 06/05/25 Time Notified: 19:03 Method of Notification: ED Physician Initiated 06/06/25 08:55 Consult: Brim Ironer [facility] / Pulmonary Medicine Routine Consulting Provider: Intensivists/Pulmonary Med Reason for Consult: severe met alkalosis, high AG Met acidosis, resp alkalosis EMERGENT Consult: No Notified: Yes Date Notified: 06/06/25 Time Notified: 10:37 Method of Notification: Answering Service Reason For Visit: ACUTE PANCREATITIS, ELEVATED LFTS Diagnosis Discharge Diagnosis (1) Acute pancreatitis: Status: Acute Code(s): K85.90 - Acute pancreatitis without necrosis or infection, unspecified (2) Abnormal liver function test: Status: Acute Code(s): R79.89 - Other specified abnormal findings of blood chemistry (3) Hyperglycemia: Status: Acute Code(s): R73.9 - Hyperglycemia, unspecified (4) High anion gap metabolic acidosis: Status: Acute Code(s): E87.29 - Other acidosis Plan 50-year-old female being admitted for persistent nausea vomiting, decreased oral intake for 1 week. She states she is social alcohol drinker about 2-3 times a week, 3 drinks at a time mainly wine sometimes Vodka on the rocks. In her 20s for 2 to 3 years she drink heavily/binge drinking about 7-8 drinks mainly beer per day. #Acute pancreatitis and acute on chronic hepatitis with elevated liver function tests most likely due to chronic alcohol use: Patient has mild epigastric discomfort, lipase was high 1600 with persistent nausea and vomiting and decreased oral intake. Total bili 3.94, improved to 2.09 transaminases and ALP elevated improving -Had about 5 L of IV fluid. Decrease to D5 half NS. -MRCP ordered. GI consulted. CT abdomen and ultrasound shows hepatomegaly size 20 cm fatty liver. Otherwise GB/biliary system, pancreas kidneys and adrenals unremarkable. - Autoimmune hepatitis panel ordered per GI 06/07: MRCP reported no acute process. Unremarkable exam of liver gallbladder, intra and extrahepatic biliary ductal system. Pancreas, spleen and adrenal and kidneys are unremarkable. No cholelithiasis. No choledocholithiasis. No signal in liver indicating steatosis. Liver chemistry shows improvement in total bilirubin. Transaminases still elevated, AST 124 ALT 58 and ALP 195 raising possibility of alcoholic hepatitis. 06/08: Liver chemistry continues to improve with total bilirubin 1.71, bili direct 1.09. ALT 58, AST 106. ALP 205. CRP still elevated. Lipase improved to 216 from 1645. GGT high 1448 on 06/06 suggestive of heavy alcohol drinking. Advised quitting alcohol. Follow-up in GI office in 1 month. Patient is able to tolerate full liquid. Advance to soft diet on discharge home. Follow-up in GI office in 1 month. # Complex acid-base balance disorder: Metabolic alkalosis due to nausea vomiting/dehydration, high anion gap metabolic acidosis from starvation. Patient mother has diabetes.. Brim Ironer [facility] consulted. - In ED, glucose 261, BMP bicarb 11.8 and an anion gap of 34 with normal lactic acid -Urine ketones greater than 150 -Serum beta hydroxybutyrate 4.4 05/30; patient was started on IV fluid normal saline changed to D5 half NS and insulin drip. Patient had vigorous rehydration. IV fluid titrated down. VBG 7.49/mixed pCO2 27/44/21. Since VBG O2 less than 75 therefore ABG ordered in the morning. ABG 7.4 //25-26. Initially probably patient had metabolic alkalosis then bicarb decreased because of increased AG metabolic acidosis and compensatory respiratory alkalosis. IV thiamine also given. Clear liquid diet started. Insulin drip discontinued. IV fluid continue. 06/07: Anion gap normal 13, BUN/creatinine normal. Electrolytes K3.7. Severe hypophosphatemia 0.9 yesterday replaced IV potassium phosphate. Today phosphorus 2.3. Magnesium 1.9 normal. Neutra-Phos ordered and prescription given. Prescription for thiamine given. Discharge was canceled yesterday because of nausea and vomiting. 06/08: Patient is discharged today on Reglan and senna S. # NANCY, due to prerenal and contraction metabolic alkalosis: - BUN of 33 and creatinine 1.32 which decreased to 0.6 therefore 0.7 creatinine decreased in 24 hours therefore retrospectively patient has NANCY. No prior creatinine as baseline. - 06/07 NANCY resolved. # Hyponatremia - Suspect due to dehydration, patient receiving IV fluids - Serum sodium 135 improved normal. Magnesium 1.8, hypophosphatemia. Phosphorus 1.6- improved to 1.8 and low normal potassium. 06/07 serum sodium 137. Hyponatremia resolved. #Elevated glucose probably response from starvation -No hx of diabetes -Glucose 261 in ED -A1c 5.4%, diabetes mellitus ruled out. - Needs follow-up A1c as she has family history of diabetes #DVT ppx: scds Discharge medication reconciliation done. Discharge follow-up instructions completed. Discharge process discussed with the patient and all questions were answered to patient's satisfaction. Follow with PCP in 1 to 2 weeks Total time spent, exact 35 minutes on discharge meds reconciliation, examination, coordination of care with nurses and ancillary staff, review of imaging and blood test and discussion with the patient on follow-up instructions. Clinical Impression(s) from Imaging Studies Chest X-Ray 06/05/25 13:25 IMPRESSION: Lungs appear clear throughout. No pleural effusion or pneumothorax is noted. The cardiomediastinal silhouette is within the normal range. Mild thoracic spine degenerative changes are noted. No acute osseous change is seen. No evidence of acute cardiopulmonary disease. Reading Location: [id number] Abdomen/Pelvis CT 06/05/25 15:20 IMPRESSION: No acute abdominopelvic abnormalities. Hepatosplenomegaly. Reading Location: [facility] Gallbladder Ultrasound 06/05/25 15:55 IMPRESSION: No sonographic evidence for acute cholecystitis. No cholelithiasis. Hepatomegaly and hepatic steatosis. Reading Location: [id number] Medications at Discharge Home Medications sodium di- and monophosphate-potassium phos monobasic 250 mg tablet 1 tab PO TID 5 days #15 tabs 06/07/25 thiamine HCl (vitamin B1) 100 mg tablet 100 mg PO DAILY 1 month #30 tabs 06/07/25 metoclopramide HCl 5 mg tablet (Reglan) 5 mg PO TID PRN PRN nausea and vomiting 1 month #30 tabs 06/08/25 sennosides 8.6 mg-docusate sodium 50 mg tablet (Senna-S) 2 tab-cap (2 x 8.6-50 mg) PO BID PRN constipation #60 tabs 06/08/25 Physical Exam Narrative Seen and examined No fever. Had vomiting yesterday after lunch after eating turkey sandwich. Doing good on full liquid. Epigastric discomfort, mild soreness. Passing flatus but not mobile for the last few days. Physical exam General: Alert, Oriented x3, Cooperative. BMI 21.5 kg/m² HEENT: Atraumatic, PERRLA, EOMI, Normocephalic. Oral: Oral mucosa moist no Gingival or Mucosal Lesions/ Ulcerations Neck: Supple, No JVD, Negative Carotid Bruits Chest wall/Lungs: Air entry equal in bilateral lung bases. No crepitation/rhonchi Cardiovascular: Regular rate and rhythm, Normal S1,S2, No M/G/R Abdomen: Bowel Sounds Present, Soft, mild abdominal discomfort, Non-Distended : No dysuria. No renal angle tenderness. No suprapubic tenderness. Extremities: No edema, Capillary Refill Less than 3 Seconds Skin: No rashes, No breakdown Musculoskeletal: No Tenderness to Palpation of Joints or Extremities Neurological: Cranial nerves II-XII grossly intact, DTR 2+/4. No acute focal neurological deficit. Psych/Mental Status: Normal Affect, Appropriate. Weight / BMI Weight Weight: 123 lb 0.287 oz Body Mass Index (BMI) 20.9 ABG / Lab / Microbiology Data 06/08/25 05:30 06/08/25 05:30 Laboratory: Laboratory Results - last 24 hr 06/08/25 05:30: WBC 7.4, RBC 3.95 L, Hgb 13.1, Hct 37.8, MCV 95.7, MCH 33.2 H, MCHC 34.7, RDW Std Deviation 43.2, RDW Coeff of Parviz 12.3, Plt Count 87 L, MPV 12.2 H, Immature Gran % (Auto) 0.900, Neut % (Auto) 78.3 H, Lymph % (Auto) 13.2 L, Cameron % (Auto) 6.1, Eos % (Auto) 0.8, Baso % (Auto) 0.7, Absolute Neuts (auto) 5.8, Absolute Lymphs (auto) 0.98, Nucleated RBC % 0, Sodium 135, Potassium 3.1 L, Chloride 96 L, Carbon Dioxide 22.9, Anion Gap 17 H, BUN 7, Creatinine 0.46 L, Estim Creat Clear Calc 123.54, Est GFR (MDRD) Non-Af 115, BUN/Creatinine Ratio 15.5, Glucose 107 H, Calcium 9.5, Total Bilirubin 1.71 H, Direct Bilirubin 1.09 H, AST 106 H, ALT 58 H, Alkaline Phosphatase 205 H, Lactate Dehydrogenase 186, C-React Prot Ext Range 20.30 H, Total Protein 7.0, Albumin 3.7, Globulin 3.3, Lipase 216 H Microbiology: Microbiology 06/05/25 12:59 Urine, Clean Catch Urine Culture - Final Mixed Gram Pos & Gram Neg Org 06/05/25 12:59 Mucosa - Nose SARS-CoV-2, Influenza & RSV (PCR) - Final Radiography Diagnostic Testing: Radiology Impression MRCP 06/06/25 19:15 IMPRESSION: No acute process. Unremarkable exam of liver gallbladder, intra and extrahepatic biliary ductal system Reading Location: [id number] D/C Instructions DC O2, CPAP, BIPAP Needs Home O2 Discharge instructions: No Meaningful Use Info Meaningful Use Meaningful Use Diagnoses (Choose all that apply): None applicable Discharge Plan Admission Admit Date/Time: 06/05/25 18:28 Primary Reason for Your Visit: Acute pancreatitis Attending Provider: Galileo Whatley Primary Care Provider: Care Physician,No Primary Consulting Providers: Anne Rios; Galileo Whatley; Gerardo Umaña; Nanci Cnao; Barbie Jaimes; Dora Michelle; Jesus Kwok; Balta Allen; Chinedu Eid; Jason Villanueva; Boris Gilbert; Isidro Delacruz; Trell Meredith; Che Nobles; Joey Zarate; Escobar Jeffers; Lonny Quiroz; Charity Jones; Satish Trujillo; Jacquie Mcintosh; Jose Miguel Voss; Praful Watts; Javier Ackerman; Shane Lyn; Bailey Martienz; Zenaida Inman; Rob Hawk; Tuan Angelo; Tanner De Santiago; Tito Sinha Instructions Additional Instructions / Restrictions: Full liquid like chicken broth to soft diet, mashed potato/rice. No oily/fried food or red meat for 1 week Discharge Orders/Prescriptions Prescriptions: New thiamine HCl (vitamin B1) 100 mg tablet 100 mg PO DAILY 30 Days Qty: 30 2RF sod phos di, mono-K phos mono 250 mg tablet 1 tab PO TID 5 Days Qty: 15 0RF metoclopramide HCl [Reglan] 5 mg tablet 5 mg PO TID PRN PRN (Reason: nausea and vomiting) 30 Days Qty: 30 0RF Rx Instructions: Advised to take half an hour before meal for nausea/gastric reflux sennosides-docusate sodium [Senna-S] 8.6-50 mg tablet 2 tab-cap PO BID PRN (Reason: constipation) Qty: 60 0RF Referrals / Follow Up: Care Physician,No Primary [Primary Care Provider, Medical] Dora Michelle PA [[facility], Gastroenterology] - Within 1 Month Disposition Disposition (needs filled in before D/C Order can be placed): Home, Self Care Charges/Coding Visit Charges Inpatient E&M: 94044 Disch Hosp >30min
[2025-06-08 11:23] VITALS: BP 132/96; PULSE 110; RESP 16; TEMP 36.6; O2SAT 98
[2025-06-08 17:08] LABS: Anti-Chromatin <0.2 AI (0.0-0.9); Anti-Jo <0.2 AI (0.0-0.9); Anti-dsDNA Ab <1 IU/mL (0-9); SJOGREN'S Anti-SS-A test < 0.2 AI (0.0-0.9); SJOGREN'S Anti-SS-B test < 0.2 AI (0.0-0.9)
[2025-06-10 17:08] LABS: Albumin 3.7 g/dL (2.9-4.4); Anti-Smooth Muscle ABS 10 Units (0-19); CMV Acute Antibody IgM < 30.0 AU/mL (0.0-29.9); Cytoplasmic Ab (C-ANCA) <1:20 titer (Neg:<1:20); EBV Acute VCA IgM < 36.0 U/mL (0.0-35.9); EBV-VCA IgG > 600.0 U/mL (0.0-17.9); Gamma Globulin 1.0 g/dL (0.4-1.8); IgG, Quant 952 mg/dL (586-1602); Immunoglobulin A 474 mg/dL (87-352); Immunoglobulin G, Subclass 1 487 mg/dL (248-810); Immunoglobulin G, Subclass 2 244 mg/dL (130-555); Immunoglobulin G, Subclass 3 53 mg/dL (15-102); Immunoglobulin G, Subclass 4 16 mg/dL (2-96); Immunoglobulin M 132 mg/dL (26-217); PROEL- TOTAL PROTEIN 6.9 g/dL (6.0-8.5); Perinuclear Ab (P-ANCA) <1:20 titer (Neg:<1:20)
[2025-06-11 13:08] LABS: Vitamin B1, Thiamine 173.1 nmol/L (66.5-200.0)
== END 2025-06-08 12:07 | disposition home or self-care (01) | DRG 282 ==
LOC: ED 13:07 → PCU 18:32 → ICU 20:55 → MS3 06-06 19:50
PROVIDERS: Internal Medicine Gastroenterology; Student in an Organized Health Care Education/Training Program; Admitting Provider Internal Medicine; Emergency Provider Surgery; Visit Provider Internal Medicine
DX: K85.90 Acute pancreatitis without necrosis or infection, unspecified (principal); E87.20 Acidosis, unspecified; E87.3 Alkalosis; K70.10 Alcoholic hepatitis without ascites; E87.8 Other disorders of electrolyte and fluid balance, not elsewhere classified; N17.9 Acute kidney failure, unspecified; E87.1 Hypo-osmolality and hyponatremia; R73.9 Hyperglycemia, unspecified; Z87.891 Personal history of nicotine dependence
CPT/HCPCS: 36415; 36600; 71046; 74177; 74181; 76705; 80048; 80051; 80053; 80076; 80307; 81001; 82010; 82077; 82248; 82550; 82570; 82728; 82784; 82787; 82803; 82962; 82977; 83036; 83516; 83605; 83615; 83690; 83735; 83930; 83935; 84100; 84165; 84425; 84439; 84443; 85025; 85652; 86037; 86140; 86225; 86235; 86255; 86334; 86645; 86664; 86665; 86703; 87086; 87088; 87631; 93005; 97803; 99285; Q9967; A4216; J2405